=== PATIENT | male | born 1960 | race Caucasian/White ===

== ENCOUNTER 2023-10-13 08:13 | Outpatient (OUT) | payer MEDICARE, MEDICAID, SELFPAY ==
[2023-10-13 08:34] LABS: Basophils Absolute Auto 0.1 10^3/uL (0.0-0.1); Basophils Percent Auto 0.5 % (0.2-2.0); Eosinophils Absolute Auto 0.2 10^3/uL (0.0-0.7); Eosinophils Percent Auto 1.9 % (0.9-7.0); Hematocrit 48.5 % (42.0-54.0); Hemoglobin 15.8 g/dL (14.0-18.0); Immature Granulocytes Abs Auto 0.04 10^3/uL (0.00-0.03); Immature Granulocytes Pct Auto 0.4 % (0.0-0.5); Lymphocytes Absolute Auto 2.5 10^3/uL (1.2-3.8); Lymphocytes Percent Auto 24.6 % (20.5-60.0); Mean Corpuscular HGB Conc 32.6 g/dL (29.9-35.2); Mean Corpuscular Hemoglobin 31.2 pg (25.9-34.0); Mean Corpuscular Volume 95.7 fL (80.0-94.0); Mean Platelet Volume 9.2 fL (9.5-13.5); Monocytes Absolute Auto 0.7 10^3/uL (0.3-0.8); Monocytes Percent Auto 6.6 % (1.7-12.0); Neutrophils Absolute Auto 6.8 10^3/uL (1.4-6.5); Platelet Count 340 10^3/uL (150-450); Red Blood Count 5.07 10^6/uL (4.70-6.10); Red Cell Distribution Width 14.9 % (11.0-15.0); White Blood Count 10.3 10^3/uL (4.0-11.0)
[2023-10-13 08:57] LABS: Alanine Aminotransferase 26 U/L (16-63); Albumin Globulin Ratio 0.9; Albumin Level 3.7 g/dL (3.4-5.0); Alkaline Phosphatase 81 U/L (46-116); Aspartate Amino Transferase 12 U/L (15-37); BUN Creatinine Ratio 11.5; Bilirubin Total 0.8 mg/dL (0.2-1.0); Calcium 9.1 mg/dL (8.5-10.1); Carbon Dioxide 31.4 mmol/L (21.0-32.0); Chloride 102 mmol/L (98-107); Chol HDL Ratio 5.8; Cholesterol 272 mg/dL (<=200); Estimated GFR (African America >60 (>=60); Estimated GFR (Non-African Ame >60 (>=60); Glucose 99 mg/dL (74-106); HDL Cholesterol 47 mg/dL (40-60); Potassium 4.4 mmol/L (3.5-5.1); Sodium 141 mmol/L (136-145); Total Protein 7.7 g/dL (6.4-8.2); Triglycerides 91 mg/dL (<=150); VLDL CHOLESTEROL 18.2 mg/dL
[2023-10-13 09:30] LABS: Bilirubin Urine NEGATIVE (NEGATIVE); Blood Urine NEGATIVE (NEGATIVE); Clarity Urine CLEAR (CLEAR); Color Urine YELLOW (YELLOW); Glucose Urine UA NEGATIVE (NEGATIVE); Ketones Urine NEGATIVE (NEGATIVE); Leukocyte Esterase Urine NEGATIVE (NEGATIVE); Nitrite Urine NEGATIVE (NEGATIVE); Protein Urine NEGATIVE (NEG/TRACE); Specific Gravity Urine >=1.030 (1.005-1.025); Urobilinogen Urine 0.2 EU/dL (0.2-1.0); pH Urine 5.5 (5.0-9.0)
[2023-10-13 09:33] LABS: Urine Microscopic Indicated NO
[2023-10-13 09:35] LABS: Prostate Specific Antigen Dx 12.58 ng/mL (<=4.00)
[2023-10-14 08:11] LABS: PSA, Free 0.99 ng/mL; Prostate Specific Ag 11.2 ng/mL (0.0-4.0)
== END 2023-10-13 08:14 | disposition home or self-care (01) ==
LOC: LAB 08:17
PROVIDERS: PCP Nurse Practitioner; Visit Provider Nurse Practitioner
DX: E78.2 Mixed hyperlipidemia (principal); Z72.0 Tobacco use; Z12.5 Encounter for screening for malignant neoplasm of prostate; R97.20 Elevated prostate specific antigen [PSA]
CPT/HCPCS: 36415; 80053; 80061; 81003; 84153; 84154; 85025

== ENCOUNTER 2023-12-08 08:56 | Outpatient (OUT) | payer MEDICARE, MEDICAID, SELFPAY ==
[2023-12-08 09:11] LABS: Hemoglobin 14.4 g/dL (14.0-18.0)
--- OUTSIDE RECORDS SUMMARY | 2023-12-08 09:19 | XMS_ITS | CCD ---
Author Organization [facility] Care Team Providers Care Hospice Nurse Practitioner Name Role Phone JUSTIN CEDENO Attending Unavailable PAO, JUSTIN Admitting Unavailable DR RENARD PORTILLO Consulting Unavailable REQUEST, NONE LISTED Primary Care Unavaila ble GRECHNY, RIVER JIM Consulting Unavailable EULA, NORMAN Consulting Unavailable REQUEST, NONE LISTED Primary Care Unavaila ble EULA, NORMAN Admitting Unavailable EULA, NORMAN Attending Unavailable EULA, NORMAN Consulting Unavailable EULA, NORMAN Primary Care Unavailable EULA, NORMAN Admitting Unavailable EULA, NORMAN Attending Unavailable lForentin Valiente Unavailable THEODORA RYAN Attending Unavailable THEODORA RYAN Attending Unavailable BRIANA FUENTES Attending Unavailable THEODORA RYAN Attending Unavailable Allergies Allergy Classification Reported Allergen(s) Allergy Type Date of Onset Reaction(s) Facility (1 source) Codeine Drug Allergy 01-23-2022 [facility] Repository (2 sources) Codeine Drug Allergy [facility] Limited Other Medications Current Medications Medication Drug Class(es) Dates Sig (Normalized) Sig (Original) Aspirin (2 sources) Platelet Aggregation Inhibitor, Nonsteroidal Anti-inflammatory Drug gabapentin 300 mg oral capsule (2 sources) Anti-epileptic Agent take 1 capsule by mouth every eight hours rosuvastatin calcium 20 mg oral tablet (2 sources) HMG-CoA Reductase Inhibitor take 1 tablet by mouth every twenty-four hours Spiriva Respimat 2.5 mcg/actuation (1 source) triamcinolone acetonide 1 mg/ml topical cream (2 sources) Corticosteroid Start: 06-19-2021 Problems Active Problems Problem Classification Problem Date Documented Da te Episodic/Chronic Allergic reactions (3 sources) Atopic dermatitis; Translations: [Atopic dermatitis, unspecified] Onset: 06-19-2021 Resolved: 06-19-2021 Chronic Chronic obstructive pulmonary disease and bronchiectasis (3 sources) Chronic obstructive pulmonary disease with (acute) exacerbation; Translations: [Chronic obstructive lung disease] Onset: 06-20-2021 Resolved: 06-20-2021 Chronic Disorders of lipid metabolism (3 sources) Mixed hyperlipidemia; Translations: [Mixed hyperlipidemia] Onset: 06-19-2021 Resolved: 06-19-2021 Chronic Other connective tissue disease (4 sources) Fibromyalgia; Translations: [FIBROMYALGIA] Onset: 12-18-2021 Episodic Other gastrointestinal disorders (4 sources) Constipation, unspecified; Translations: [CONSTIPATION UNSPECIFIED] Onset: 01-23-2022 Episodic Other lower respiratory disease (1 source) Shortness of breath; Translations: [SHORTNESS OF BREATH] Onset: 01-24-2022 Episodic Substance-related disorders (3 sources) Nicotine dependence, cigarettes, uncomplicated; Translations: [Smoker] Onset: 01-24-2022 Chronic Viral infection (1 source) COVID-19; Translations: [COVID-19] Onset: 01-24-2022 Past or Other Problems Problem Classification Problem Date Documented Da te Episodic/Chronic Other screening for suspected conditions (not mental disorders or infectious disease) (1 source) Elevated prostate specific antigen [PSA] Onset: 06-19-2021 Resolved: 06-19-2021 Episodic Results Test Name Value Interpretation Reference Range Facility BNPon 01-23-2022 Natriuretic peptide B (Bld) [Mass/Vol] 115.0 pg/mL Normal <=900.0 [facility] Comment on above: Performed By: #### C MP, TSH, HSTROPN, BNP, LIPA #### [facility] [address] [place] [address] Dr. Ling Cifuentes CBC AUTO DIFFon 01-23-2022 BASO # 0.0 103/ul Normal 0.0-0.1 [facility] Comment on above: Performed By: #### I NFLUAB #### [facility] [address] [place] [address] Dr. Ling Cifuentes Basophils/100 WBC (Bld) 0.2 % Normal 0.2-2.0 [facility] Comment on above: Performed By: #### I NFLUAB #### [facility] [address] [place] [address] Dr. Ling Cifuentes EO # 0.0 103/ul Normal 0.0-0.7 [facility] Comment on above: Performed By: #### I NFLUAB #### [facility] [address] [place] [address] Dr. Ling Cifuentes Eosinophils/100 WBC (Bld) 0.6 % Critically low 0.9-7.0 [facility] Comment on above: Performed By: #### I NFLUAB #### [facility] [address] [place] [address] Dr. Ling Cifuentes Erythrocyte distribution width (RBC) [Ratio] 14.1 % Normal 11.0-15.0 [facility] Comment on above: Performed By: #### I NFLUAB #### [facility] [address] [place] [address] Dr. Ling Cifuentes Hematocrit (Bld) [Volume fraction] 39.8 % Critically low 42.0-54.0 [facility] Comment on above: Performed By: #### I NFLUAB #### [facility] [address] [place] [address] Dr. Ling Cifuentes Hemoglobin (Bld) [Mass/Vol] 13.4 g/dL Critically low 14.0-18.0 [facility] Comment on above: Performed By: #### I NFLUAB #### [facility] [address] [place] [address] Dr. Ling Cifuentes IG # 0.01 10e3/ul Normal 0.00-0.03 [facility] Comment on above: Performed By: #### I NFLUAB #### [facility] [address] [place] [address] Dr. Ling Cifuentes IG % 0.2 % Normal 0.0-0.5 [facility] Comment on above: Performed By: #### I NFLUAB #### [facility] [address] [place] [address] Dr. Ling Cifuentes LYMPH # 1.3 103/ul Normal 1.2-3.8 [facility] Comment on above: Performed By: #### I NFLUAB #### [facility] [address] [place] [address] Dr. Ling Cifuentes Lymphocytes/100 WBC (Bld) 27.2 % Normal 20.5-60.0 [facility] Comment on above: Performed By: #### I NFLUAB #### [facility] [address] [place] [address] Dr. Ling Cifuentes MANUAL DIFF REQ NO [facility] Comment on above: Performed By: #### I NFLUAB #### [facility] [address] [place] [address] Dr. Ling Cifuentes MCH (RBC) [Entitic mass] 30.7 pg Normal 25.9-34.0 [facility] Comment on above: Performed By: #### I NFLUAB #### [facility] [address] [place] [address] Dr. Ling Cifuentes MCHC (RBC) [Mass/Vol] 33.7 g/dL Normal 29.9-35.2 [facility] Comment on above: Performed By: #### I NFLUAB #### [facility] [address] [place] [address] Dr. Ling Cifuentes MCV (RBC) [Entitic vol] 91.1 fL Normal 80.0-94.0 [facility] Comment on above: Performed By: #### I NFLUAB #### [facility] [address] [place] [address] Dr. Ling Cifuentes MONO # 0.5 103/ul Normal 0.3-0.8 [facility] Comment on above: Performed By: #### I NFLUAB #### [facility] [address] [place] [address] Dr. Ling Cifuentes Monocytes/100 WBC (Bld) 10.7 % Normal 1.7-12.0 [facility] Comment on above: Performed By: #### I NFLUAB #### [facility] [address] [place] [address] Dr. Ling Cifuentes NEUT # 2.9 103/ul Normal 1.4-6.5 [facility] Comment on above: Performed By: #### I NFLUAB #### [facility] [address] [address] [address] Ling Cifuentes Neutrophils/100 WBC (Bld) 61.1 % Normal 43.0-75.0 [facility] Comment on above: Performed By: #### I NFLUAB #### [facility] [address] [address] [address] Ling Cifuentes Platelet mean volume (Bld) [Entitic vol] 9.7 fL Normal 9.5-13.5 [facility] Comment on above: Performed By: #### I NFLUAB #### [facility] [address] [address] [address] Ling Cifuentes PLT 157 103/ul Normal 150-450 [facility] Comment on above: Performed By: #### I NFLUAB #### [facility] [address] [address] [address] Ling Cifuentes RBC 4.37 106/ul Critically low 4.70-6.10 [facility] Comment on above: Performed By: #### I NFLUAB #### [facility] [address] [address] [address] Ling Cifuentes WBC 4.8 103/ul Normal 4.0-11.0 [facility] Comment on above: Performed By: #### I NFLUAB #### [facility] [address] [address] [address] Ling Cifuentes Covid-19 PCR ([facility])on 01-03 SARS-CoV-2 (COVID-19) RNA JAYME+probe Ql (Unsp spec) Detected Critically abnormal NOT DETECTED [facility] Comment on above: Result Comment: This test is not yet approved or cleared by the [place] FDA. When there are no FDA-approved or cleared tests available, and other criteria are met, FDA can make tests available under an emergency access mechanism called an Emergency Use Authorization (EUA). The EUA for this test is supported by the Ice Grinder of Health and Human Service's declaration that circumstances exist to justify the emergency use of in vitro diagnostics for the detection and/or diagnosis of the virus that causes COVID-19. This EUA will remain in effect for the duration of the COVID-19 declaration justifying emergency of IVDs, unless it is terminated or revoked by the FDA (after which the test may no longer be used). Performed By: #### C VDTB #### [facility] [address] [place] [address] Dr. Ling Cifuentes ER URINE PROFILEon 2 Bilirubin Ql (U) Negative Normal NEGATIVE [facility] Comment on above: Performed By: #### E RUR #### [facility] [address] [place] [address] Dr. Ling Cifuentes Clarity (U) CLEAR Normal CLEAR [facility] Comment on above: Performed By: #### E RUR #### [facility] [address] [place] [address] Dr. Ling Cifuentes Color (U) YELLOW Normal YELLOW [facility] Comment on above: Performed By: #### E RUR #### [facility] [address] [place] [address] Dr. Ling MOSER A micrscopic examination will be performed if indicated. Normal [facility] Comment on above: Performed By: #### E RUR #### [facility] [address] [place] [address] Dr. Ling Cifuentes Glucose Ql (U) Negative Normal NEGATIVE [facility] Comment on above: Performed By: #### E RUR #### [facility] [address] [place] [address] Dr. Ling Cifuetnes Hemoglobin Ql (U) Negative Normal NEGATIVE [facility] Comment on above: Performed By: #### E RUR #### [facility] [address] [place] [address] Dr. Ling Cifuentes Ketones Ql (U) TRACE Abnormal NEGATIVE [facility] Comment on above: Performed By: #### E RUR #### [facility] [address] [place] [address] Dr. Ling Cifuentes LEUKOCYTES Negative Normal NEGATIVE [facility] Comment on above: Performed By: #### E RUR #### [facility] [address] [place] [address] Dr. Ling Cifuentes Nitrite Ql (U) Negative Normal NEGATIVE [facility] Comment on above: Performed By: #### E RUR #### [facility] [address] [place] [address] Dr. Ling Cifuentes pH (U) 5.5 [pH] Normal 5-9 [facility] Comment on above: Performed By: #### E RUR #### [facility] [address] [place] [address] Dr. Ling Cifuentes SPEC GRAVITY 1.025 Normal 1.005-<=1.025 [facility] Comment on above: Performed By: #### E RUR #### [facility] [address] [place] [address] Dr. Ling Cifuentes UA PROTEIN Negative Normal NEGATIVE/ TRACE [facility] Comment on above: Performed By: #### E RUR #### [facility] [address] [place] [address] Dr. Ling Cifuentes UR MICRO IND NOT INDICATED [facility] Comment on above: Performed By: #### E RUR #### [facility] [address] [place] [address] Dr. Ling Cifuentes Urobilinogen Qn (U) 0.2 {Kranthi'U}/dL Normal 0.2 - 1. 0 [facility] Comment on above: Performed By: #### E RUR #### [facility] [address] [place] [address] Dr. Ling Cifuentes INFLUENZA A AND B AGon 01-23 [facility] SEE BELOW Normal [facility] Comment on above: Result Comment: Nega tive for Flu A protein angiten. Infection due to Flu A cannot be ruled out. Flu A angiten in the sample may be below the detection limit of the test. Performed By: #### I NFLUAB #### [facility] [address] [place] [address] Dr. Ling Cifuentes INFLUBNEGH SEE BELOW Normal [facility] Comment on above: Result Comment: Nega tive for Flu B protein antigen. Infection due to Flu B cannot be ruled out. Flu B antigen in the sample may be below the detection limit of the test. Performed By: #### I NFLUAB #### [facility] [address] [place] [address] Dr. Ling Cifuentes INFLUENZA A AG Negative Normal NEGATIVE SEE COMMENT [facility] Comment on above: Performed By: #### I NFLUAB #### [facility] [address] [address] [address] Ling Cfiuentes INFLUENZA B AG Negative Normal NEGATIVE SEE COMMENT [facility] Comment on above: Performed By: #### I NFLUAB #### [facility] [address] [place] [address] Dr. Ling Cifuentes INTERNAL CONTROLS Within Normal Limits Normal Within Normal Limits [facility] Comment on above: Performed By: #### I NFLUAB #### [facility] [address] [place] [address] Dr. Ling Cifuentes LACTATE/LACTIC ACIDon 2021 Lactate [Moles/Vol] 0.5 mmol/L Normal 0.4-1.9 [facility] Comment on above: Performed By: #### I NFLUAB #### [facility] [address] [place] [address] Dr. Ling Cifuentes LIPASEon 01-23-2022 Lipase [Catalytic activity/Vol] 91.0 U/L Normal 73.0-393.0 [facility] Comment on above: Performed By: #### C MP, TSH, HSTROPN, BNP, LIPA #### [facility] [address] [place] [address] Dr. Ling Cifuentes PROF 14(COMP METB)on 022 Albumin [Mass/Vol] 3.4 g/dL Normal 3.4-5.0 [facility] Comment on above: Performed By: #### C MP, TSH, HSTROPN, BNP, LIPA #### [facility] [address] [place] [address] Dr. Ling Cifuentes Albumin/Globulin [Mass ratio] 1.0 {ratio} Normal [facility] Comment on above: Performed By: #### C MP, TSH, HSTROPN, BNP, LIPA #### [facility] [address] [place] [address] Dr. Ling Cifuentes ALP [Catalytic activity/Vol] 58 U/L Normal 46-116 [facility] Comment on above: Performed By: #### C MP, TSH, HSTROPN, BNP, LIPA #### [facility] [address] [address] [address] Ling Cifuentes ALT [Catalytic activity/Vol] 22 U/L Normal 16-63 [facility] Comment on above: Performed By: #### C MP, TSH, HSTROPN, BNP, LIPA #### [facility] [address] [place] [address] Dr. Ling Cifuentes Anion gap [Moles/Vol] 12.8 mmol/L Normal [facility] Comment on above: Performed By: #### C MP, TSH, HSTROPN, BNP, LIPA #### [facility] [address] [place] [address] Dr. Ling Cifuentes AST [Catalytic activity/Vol] 18 U/L Normal 15-37 [facility] Comment on above: Performed By: #### C MP, TSH, HSTROPN, BNP, LIPA #### [facility] [address] [place] [address] Dr. Ling Cifuentes Bilirubin [Mass/Vol] 0.6 mg/dL Normal 0.2-1.0 [facility] Comment on above: Performed By: #### C MP, TSH, HSTROPN, BNP, LIPA #### [facility] [address] [place] [address] Dr. Ling Cifuentes Calcium [Mass/Vol] 8.4 mg/dL Critically low 8.5-10.1 [facility] Comment on above: Performed By: #### C MP, TSH, HSTROPN, BNP, LIPA #### [facility] [address] [place] [address] Dr. Ling Cifuentes Chloride [Moles/Vol] 100 mmol/L Normal 98-107 [facility] Comment on above: Performed By: #### C MP, TSH, HSTROPN, BNP, LIPA #### [facility] [address] [address] [address] Ling Cifuentes CO2 [Moles/Vol] 25.8 mmol/L Normal 21.0-32.0 [facility] Comment on above: Performed By: #### C MP, TSH, HSTROPN, BNP, LIPA #### [facility] [address] [place] [address] Dr. Ling Cifuentes Creatinine [Mass/Vol] 0.84 mg/dL Normal 0.70-1.30 [facility] Comment on above: Performed By: #### C MP, TSH, HSTROPN, BNP, LIPA #### [facility] [address] [place] [address] Dr. Ling Cifuentes EGFR-AF SRI LANKAN >60 Normal >=60 [facility] Comment on above: Performed By: #### C MP, TSH, HSTROPN, BNP, LIPA #### [facility] [address] [place] [address] Dr. Ling Cifuentes EGFR-NON AF SRI LANKAN >60 Normal >=60 [facility] Comment on above: Performed By: #### C MP, TSH, HSTROPN, BNP, LIPA #### [facility] [address] [place] [address] Dr. Ling Cifuentes Globulin (S) [Mass/Vol] 3.3 g/dL Normal [facility] Comment on above: Performed By: #### C MP, TSH, HSTROPN, BNP, LIPA #### [facility] [address] [place] [address] Dr. Ling Cifuentes Glucose [Mass/Vol] 100 mg/dL Normal 74-106 [facility] Comment on above: Performed By: #### C MP, TSH, HSTROPN, BNP, LIPA #### [facility] [address] [place] [address] Dr. Ling Cifuentes Potassium [Moles/Vol] 3.6 mmol/L Normal 3.5-5.1 [facility] Comment on above: Performed By: #### C MP, TSH, HSTROPN, BNP, LIPA #### [facility] [address] [place] [address] Dr. Ling Cifuentes Protein [Mass/Vol] 6.7 g/dL Normal 6.4-8.2 [facility] Comment on above: Performed By: #### C MP, TSH, HSTROPN, BNP, LIPA #### [facility] [address] [address] [address] Ling Cifuentes Sodium [Moles/Vol] 135 mmol/L Critically low 136-145 [facility] Comment on above: Performed By: #### C MP, TSH, HSTROPN, BNP, LIPA #### [facility] [address] [place] [address] Dr. Ling Cifuentes Urea nitrogen [Mass/Vol] 14.0 mg/dL Normal 7.0-18.0 [facility] Comment on above: Performed By: #### C MP, TSH, HSTROPN, BNP, LIPA #### [facility] [address] [place] [address] Dr. Ling Cifuentes Urea nitrogen/Creatinine [Mass ratio] 16.7 mg/mg Normal [facility] Comment on above: Performed By: #### C MP, TSH, HSTROPN, BNP, LIPA #### [facility] [address] [place] [address] Dr. Ling Cifuentes TROPONIN, HIGH SENSITIVITYon 01-23-2022 HSTROP 11.6 pg/mL Normal 4.0-76.1 [facility] Comment on above: Result Comment: CUT- OFF POINTS HAVE BEEN ESTABLISHED BASED ON THE FOURTH UNIVERSAL DEFINITIONS OF MYOCARDIAL INFARCTION. THE UPPER REFERENCE LIMIT (URL) OF TROPONIN, DEFINED THE 99TH PERCENTILE OF cTnI DISTRIBUTION IN A REFERENCE POPULATION, HAS BEEN CONFIRMED THE DECISION THRESHOLD FOR [place] DIAGNOSIS. Performed By: #### C MP, TSH, HSTROPN, BNP, LIPA #### [facility] [address] [place] [address] Dr. Ling Cifuentes TSHon 01-23-2022 TSH 0.870 uIU/mL Normal 0.358-3.740 [facility] Comment on above: Performed By: #### C MP, TSH, HSTROPN, BNP, LIPA #### [facility] [address] [address] [address] Ling Cifuentes XR ABD FLAT UP_PA Radha 01-23 XR ABD FLAT UP_PA CH EXAMINATION: XR ABD FLAT UP_PA CH HISTORY: CONSTIPATION, UNSPECIFIED , shortness breath COMPARISON: No relevant comparison available. FINDINGS: LUNGS: Expanded lungs and coarsening of interstitial markings compatible with COPD. No acute infiltrates. MEDIASTINUM: No abnormal widening. No abnormal dilation or suspicious fluid levels. BOWEL GAS PATTERN: Non-obstructed. FREE AIR: None. CALCIFICATIONS: None significant. BONES: No fracture or visible bone lesion. OTHER: Negative. IMPRESSION: 1. No acute cardiopulmonary process. 2. Hyperexpanded lungs suggestive COPD. 3. No bowel obstruction. No acute or suspicious abdominal findings. Electronically authenticated by: RENARD PORTILLO Date: 2022-01-23 17:11 Normal [facility] ANTI NEUTROPHIL CYTOPLASMIC AB (ANCA) PRon 12-20-2021 Antimyeloperoxidase (MPO) Abs <9.0 Normal 0.0-9.0 [facility] Comment on above: Result Comment: Perf ormed at: BN Performed By: #### I NFLUAB #### [facility] [address] [place] [address] Dr. Ling Cifuentes Antiproteinase 3 (LA-3) Abs <3.5 Normal 0.0-3.5 [facility] Comment on above: Result Comment: Perf ormed at: BN Performed By: #### I NFLUAB #### [facility] [address] [place] [address] Dr. Ling Cifuentes Atypical pANCA <1:20 Normal Neg:<1:20 [facility] Comment on above: Result Comment: The atypical pANCA pattern has been observed in a significant percentage of patients with ulcerative colitis, primary sclerosing cholangitis and autoimmune hepatitis. Performed at: CB Performed By: #### I NFLUAB #### [facility] [address] [place] [address] Dr. Ling Cifuentes Cytoplasmic (C-ANCA) <1:20 Normal Neg:<1:20 [facility] Comment on above: Result Comment: Perf ormed at: CB Performed By: #### I NFLUAB #### [facility] [address] [address] [address] Ling Cifuentes Perinuclear (P-ANCA) <1:20 Normal Neg:<1:20 [facility] Comment on above: Result Comment: The presence of positive fluorescence exhibiting P-ANCA or C-ANCA patterns alone is not specific for the diagnosis of Erasmo's Granulomatosis (WG) or microscopic polyangiitis. Decisions about treatment should not be based solely on ANCA IFA results. The International ANCA Group Consensus recommends follow up testing of positive sera with both LA-3 and MPO-ANCA enzyme immunoassays. As many as 5% serum samples are positive only by EIA. Ref. AM J Clin Pathol 1999;111:507-513. Performed at: CB Performed By: #### I NFLUAB #### [facility] [address] [place] [address] Dr. Ling Cifuentes PASCUAL EIA W/REFLEX 5 BIOMARKER Son 12-11-2021 PASCUAL Direct Negative Normal Negative [facility] Comment on above: Performed By: #### I NFLUAB #### [facility] [address] [place] [address] Dr. Ling Cifuentes RHEUMATOID FACTORon 12-12-19 22 RA Latex Turbid. <10.0 Normal <14.0 [facility] Comment on above: Performed By: #### R F #### [facility] [address] [place] [address] Dr. Ling Cifuentes VITAMIN B12on 12-11-2021 Cobalamin (Vitamin B12) [Mass/Vol] 378 pg/mL Normal 232-1245 [facility] Comment on above: Performed By: #### I NFLUAB #### [facility] [address] [place] [address] Dr. Ling Cifuentes CBC AUTO DIFFon 12-10-2021 BASO # 0.0 103/ul Normal 0.0-0.1 [facility] Comment on above: Performed By: #### C BC #### [facility] [address] [place] [address] Dr. Ling Cifuentes Basophils/100 WBC (Bld) 0.4 % Normal 0.2-2.0 [facility] Comment on above: Performed By: #### C BC #### [facility] [address] [place] [address] Dr. Ling Cifuentes EO # 0.1 103/ul Normal 0.0-0.7 [facility] Comment on above: Performed By: #### C BC #### [facility] [address] [place] [address] Dr. Ling Cifuentes Eosinophils/100 WBC (Bld) 0.8 % Critically low 0.9-7.0 [facility] Comment on above: Performed By: #### C BC #### [facility] [address] [place] [address] Dr. Ling Cifuentes Erythrocyte distribution width (RBC) [Ratio] 12.9 % Normal 11.0-15.0 [facility] Comment on above: Performed By: #### C BC #### [facility] [address] [place] [address] Dr. Ling Cifuentes Hematocrit (Bld) [Volume fraction] 46.2 % Normal 42.0-54.0 [facility] Comment on above: Performed By: #### C BC #### [facility] [address] [place] [address] Dr. Ling Cifuentes Hemoglobin (Bld) [Mass/Vol] 15.3 g/dL Normal 14.0-18.0 [facility] Comment on above: Performed By: #### C BC #### [facility] [address] [place] [address] Dr. Ling Cifuentes IG # 0.06 10e3/ul Critically high 0.00-0.03 [facility] Comment on above: Performed By: #### C BC #### [facility] [address] [place] [address] Dr. Ling Cifuentes IG % 0.6 % Critically high 0.0-0.5 [facility] Comment on above: Performed By: #### C BC #### [facility] [address] [place] [address] Dr. Ling Cifuentes LYMPH # 2.3 103/ul Normal 1.2-3.8 [facility] Comment on above: Performed By: #### C BC #### [facility] [address] [place] [address] Dr. Ling Cifuentes Lymphocytes/100 WBC (Bld) 21.3 % Normal 20.5-60.0 [facility] Comment on above: Performed By: #### C BC #### [facility] [address] [place] [address] Dr. Ling Cifuentes MANUAL DIFF REQ NO Normal [facility] Comment on above: Performed By: #### C BC #### [facility] [address] [place] [address] Dr. Ling Cifuentes MCH (RBC) [Entitic mass] 30.8 pg Normal 25.9-34.0 [facility] Comment on above: Performed By: #### C BC #### [facility] [address] [place] [address] Dr. Ling Cifuentes MCHC (RBC) [Mass/Vol] 33.1 g/dL Normal 29.9-35.2 [facility] Comment on above: Performed By: #### C BC #### [facility] [address] [place] [address] Dr. Ling Cifuentes MCV (RBC) [Entitic vol] 93.0 fL Normal 80.0-94.0 [facility] Comment on above: Performed By: #### C BC #### [facility] [address] [place] [address] Dr. Ling Cifuentes MONO # 0.8 103/ul Normal 0.3-0.8 [facility] Comment on above: Performed By: #### C BC #### [facility] [address] [place] [address] Dr. Ling Cifuentes Monocytes/100 WBC (Bld) 7.2 % Normal 1.7-12.0 [facility] Comment on above: Performed By: #### C BC #### [facility] [address] [place] [address] Dr. Ling Cifuentes NEUT # 7.4 103/ul Critically high 1.4-6.5 [facility] Comment on above: Performed By: #### C BC #### [facility] [address] [address] [address] Ling Cifuentes Neutrophils/100 WBC (Bld) 69.7 % Normal 43.0-75.0 [facility] Comment on above: Performed By: #### C BC #### [facility] [address] [address] [address] Ling Cifuentes Platelet mean volume (Bld) [Entitic vol] 8.6 fL Critically low 9.5-13.5 [facility] Comment on above: Performed By: #### C BC #### [facility] [address] [address] [address] Ling Cifuentes PLT 373 103/ul Normal 150-450 [facility] Comment on above: Performed By: #### C BC #### [facility] [address] [address] [address] Ling Cifuentes RBC 4.97 106/ul Normal 4.70-6.10 [facility] Comment on above: Performed By: #### C BC #### [facility] [address] [address] [address] Ling Cifuentes WBC 10.7 103/ul Normal 4.0-11.0 [facility] Comment on above: Performed By: #### C BC #### [facility] [address] [address] [address] Ling Cifuentes CRPon 12-10-2021 CRP 5.4 mg/dL Critically high <=1.0 [facility] Comment on above: Performed By: #### I NFLUAB #### [facility] [address] [address] [address] Ling Cifuentes PROF 14(COMP METB)on 022 Albumin [Mass/Vol] 3.6 g/dL Normal 3.4-5.0 [facility] Comment on above: Performed By: #### I NFLUAB #### [facility] [address] [address] [address] Ling Cifuentes Albumin/Globulin [Mass ratio] 0.9 {ratio} Normal [facility] Comment on above: Performed By: #### I NFLUAB #### [facility] [address] [address] [address] Ling Cifuentes ALP [Catalytic activity/Vol] 69 U/L Normal 46-116 [facility] Comment on above: Performed By: #### I NFLUAB #### [facility] [address] [address] [address] Ling Cifuentes ALT [Catalytic activity/Vol] 13 U/L Critically low 16-63 [facility] Comment on above: Performed By: #### I NFLUAB #### [facility] [address] [address] [address] Ling Cifuentes Anion gap [Moles/Vol] 12.2 mmol/L Normal [facility] Comment on above: Performed By: #### I NFLUAB #### [facility] [address] [address] [address] Ling Cifuentes AST [Catalytic activity/Vol] 11 U/L Critically low 15-37 [facility] Comment on above: Performed By: #### I NFLUAB #### [facility] [address] [address] [address] Ling Cifuentes Bilirubin [Mass/Vol] 0.8 mg/dL Normal 0.2-1.0 [facility] Comment on above: Performed By: #### I NFLUAB #### [facility] [address] [address] [address] Ling Cifuentes Calcium [Mass/Vol] 8.8 mg/dL Normal 8.5-10.1 [facility] Comment on above: Performed By: #### I NFLUAB #### [facility] [address] [address] [address] Ling Cifuentes Chloride [Moles/Vol] 99 mmol/L Normal 98-107 [facility] Comment on above: Performed By: #### I NFLUAB #### [facility] [address] [address] [address] Ling Cifuentes CO2 [Moles/Vol] 29.8 mmol/L Normal 21.0-32.0 [facility] Comment on above: Performed By: #### I NFLUAB #### [facility] [address] [address] [address] Ling Cifuentes Creatinine [Mass/Vol] 0.76 mg/dL Normal 0.70-1.30 [facility] Comment on above: Performed By: #### I NFLUAB #### [facility] [address] [address] [address] Ling Cifuentes EGFR-AF SRI LANKAN >60 Normal >=60 [facility] Comment on above: Performed By: #### I NFLUAB #### [facility] [address] [address] [address] Ling Cifuentes EGFR-NON AF SRI LANKAN >60 Normal >=60 [facility] Comment on above: Performed By: #### I NFLUAB #### [facility] [address] [address] [address] Ling Cifuentes Globulin (S) [Mass/Vol] 3.9 g/dL Normal [facility] Comment on above: Performed By: #### I NFLUAB #### [facility] [address] [address] [address] Ling Cifuentes Glucose [Mass/Vol] 101 mg/dL Normal 74-106 [facility] Comment on above: Performed By: #### I NFLUAB #### [facility] [address] [address] [address] Ling Cifuentes Potassium [Moles/Vol] 4.0 mmol/L Normal 3.5-5.1 [facility] Comment on above: Performed By: #### I NFLUAB #### [facility] [address] [address] [address] Ling Cifuentes Protein [Mass/Vol] 7.5 g/dL Normal 6.4-8.2 [facility] Comment on above: Performed By: #### I NFLUAB #### [facility] [address] [address] [address] Ling Cifuentes Sodium [Moles/Vol] 137 mmol/L Normal 136-145 [facility] Comment on above: Performed By: #### I NFLUAB #### [facility] [address] [address] [address] Ling Cifuentes Urea nitrogen [Mass/Vol] 9.0 mg/dL Normal 7.0-18.0 [facility] Comment on above: Performed By: #### I NFLUAB #### [facility] [address] [address] [address] Ling Cifuentes Urea nitrogen/Creatinine [Mass ratio] 11.8 mg/mg Normal [facility] Comment on above: Performed By: #### I NFLUAB #### [facility] [address] [address] [address] Ling Cifuentes SED RATE [facility] 2021 SED RATE 51 mm/hr Critically high <=20 [facility] Comment on above: Performed By: #### I NFLUAB #### [facility] [address] [address] [address] Ling Cifuentes TSHon 12-10-2021 TSH 1.293 uIU/mL Normal 0.358-3.740 [facility] Comment on above: Performed By: #### I NFLUAB #### [facility] [address] [place] [address] Dr. Ling Cifuentes TSH RANGE SEE BELOW Normal [facility] Comment on above: Result Comment: <0.3 4 UIU/ml HYPERTHYROID 0.34-5.60 UIU/ml EUTHYROID >5.60 UIU/ml HYPOTHYROID Performed By: #### I NFLUAB #### [facility] [address] [place] [address] Dr. Ling Cifuentes Reminderson 11-06-2021 Reminders -- From: Theodora Martinez MA To: EU - Clinical; Sent: 07/17/2021 15:51:53 EST Show up: 10/02/2021 15:51:00 EST Subject: MRI In Spring Reminder Message MRI at [facility] Order will need resent for Precert Order faxed to [facility] Spoke to [facility] and MRI has not been approved yet patient is scheduled 10-31-21 @ 7:30am per [facility] CS Looked in clinisync no results yet. Pt canceled MRI of prostate on 10/23/21 stated from CS, and pt didn't want to reschedule [facility] Pre-Certification Formon Pre-Certification Form [id number] E9#1.00CD:127 [facility] Reminderson 07-13-2021 Reminders -- From: Angie Doe MA To: EU - Clinical; Sent: 06/22/2021 14:06:02 EST Show up: 07/02/2021 07:00:00 EST Subject: scheduling MRI prostate Due Date/Time: 07/04/2021 07:00:00 EST Reminder/Recall Order for Prostate MRI has been sent to [facility]. They will precert and call pt to schedule. Please make sure Dr Rizvi sees the results. Thanks!! no results yet Spoke to [facility] CS and was told they called Pt. on Jul 03 and Pt. told them to call him back to schedule sometime this week. Spoke to [facility] CS and was told Pt. has not returned their phone calls to schedule. PT called [facility] CS and told them he did not want to get the MRI he wanted to wait. [facility] Pre-Certification Formon Pre-Certification Form [id number] 80#1.00CD:127 [facility] Lab Reportson 06-25-2021 Lab Reports [id number] 412#1.00CD:127 [facility] Lab Reports [id number] 71#1.00CD:127 [facility] Physician Referralon 021 Physician Referral [id number] 178#1.00CD:127 [facility] Patient Educationon 06-22-20 21 Patient Education Oncology Prostate-Specific Antigen Test Why am I having this test? The prostate-specific antigen (PSA) test is a screening test for prostate cancer. It can identify early signs of prostate cancer, which may allow for more effective treatment. Your health care provider may recommend that you have a PSA test starting at age 40 or that you have one earlier or later, depending on your risk factors for prostate cancer. You may also have a PSA test: ? To monitor treatment of prostate cancer. ? To check whether prostate cancer has returned after treatment. ? If you have signs of other conditions that can affect PSA levels, such as: ? An enlarged prostate that is not caused by cancer (benign prostatic hyperplasia, BPH). This condition is very common in older men. ? A prostate infection. What is being tested? This test measures the amount of PSA in your blood. PSA is a protein that is made in the prostate. The prostate naturally produces more PSA as you age, but very high levels may be a sign of a medical condition. What kind of sample is taken? A blood sample is required for this test. It is usually collected by inserting a needle into a blood vessel or by sticking a finger with a small needle. Blood for this test should be drawn before having an exam of the prostate. How do I prepare for this test? Do not ejaculate starting 24 hours before your test, or as long as told by your health care provider. Tell a health care provider about: ? Any allergies you have. ? All medicines you are taking, including vitamins, herbs, eye drops, creams, and wbey-uxt-rcxrisw medicines. This also includes: ? Medicines to assist with hair growth, such as finasteride. ? Any recent exposure to a medicine called diethylstilbestrol. ? Any blood disorders you have. ? Any recent procedures you have had, especially any procedures involving the prostate or rectum. ? Any medical conditions you have. ? Any recent urinary tract infections (UTIs) you have had. How are the results reported? Your test results will be reported as a value that indicates how much PSA is in your blood. This will be given as nanograms of PSA per milliliter of blood (ng/mL). Your health care provider will compare your results to normal ranges that were established after testing a large group of people (reference ranges). Reference ranges may vary among labs and hospitals. PSA levels vary from person to person and generally increase with age. Because of this variation, there is no single PSA value that is considered normal for everyone. Instead, PSA reference ranges are used to describe whether your PSA levels are considered low or high (elevated). Common reference ranges are: ? Low: 0?2.5 ng/mL. ? Slightly to moderately elevated: 2.6?10.0 ng/mL. ? Moderately elevated: 10.0?19.9 ng/mL. ? Significantly elevated: 20 ng/mL or greater. Sometimes, the test results may report that a condition is present when it is not present (false-positive result). What do the results mean? A test result that is higher than 4 ng/mL may mean that you are at an increased risk for prostate cancer. However, a PSA test by itself is not enough to diagnose prostate cancer. High PSA levels may also be caused by the natural aging process, prostate infection, or BPH. PSA screening cannot tell you if your PSA is high due to cancer or a different cause. A prostate biopsy is the only way to diagnose prostate cancer. A risk of having the PSA test is diagnosing and treating prostate cancer that would never have caused any symptoms or problems (overdiagnosis and overtreatment). Talk with your health care provider about what your results mean. Questions to ask your health care provider Ask your health care provider, or the department that is doing the test: ? When will my results be ready? ? How will I get my results? ? What are my treatment options? ? What other tests do I need? ? What are my next steps? Summary ? The prostate-specific antigen (PSA) test is a screening test for prostate cancer. ? Your health care provider may recommend that you have a PSA test starting at age 40 or that you have one earlier or later, depending on your risk factors for prostate cancer. ? A test result that is higher than 4 ng/mL may mean that you are at an increased risk for prostate cancer. However, elevated levels can be caused by a number of conditions other than prostate cancer. ? Talk with your health care provider about what your results mean. This information is not intended to replace advice given to you by your health care provider. Make sure you discuss any questions you have with your health care provider. Document Released: 08/23/2005 Document Revised: 07/03/2018 Document Reviewed: 04/27/2018 [employer] Patient Education ? 2019 [employer] Normal [facility] PSA Diagnostic (Total Free)o n 06-12-2021 Prostate Spec Ag, Free 0.750 ng/mL Normal [facility] Comment on above: Order Comment: Reaso n for Exam Elevated PSA Performed By: #### P SATF #### [address] PSA Total (Not a Screen) 5.790 ng/mL High 0.000-4.000 [facility] Comment on above: Order Comment: Reaso n for Exam Elevated PSA Performed By: #### P SATF #### [address] PSA,FREE% 12.0 % Normal [facility] Comment on above: Order Comment: Reaso n for Exam Elevated PSA Result Comment: Base d on the work of Jeff et al.DAVID. 27919):1542:47.1998 the percent free PSA may be used to determine the relative risk of prostate cancer in individual men.The percent probability of prostate cancer by patient age for men with non-suspicious FRANKLYN results and total PSa between 4 and 10 ng/ml is as follows: % Free PSA 50 - 64 yrs. 65 - 75 yrs. 0 - 10 56% 55% 10 - 15 24% 35% 15 - 20 17% 23% 20 - 25 10% 20% >25 5% 9% PERFORMED BY: [place] [address] PATHOLOGIST JET MECHANIC LUDIN FITZGERALD M.D. Performed By: #### P SATF #### [address] Complete Pulmonary Functiono n 05-30-2021 Complete Pulmonary Function [facility] [place] [address] [place] [address] Pulmonary Function Signed Patient: Effie Chambers MR#: [id number] 8 : 1960 Acct:[id number] Age/Sex: 61 / M ADM Date: 05/25/21 Loc: RT Room: Type: [facility] Attending Dr: Florentin Valiente DO Ordering Provider: Florentin Valiente D.O. Date of Service: 05/25/21 Accession #: Copies to: MD Florentin Ortez D.O. PFTs were done on this 61-year-old gentleman who is 6 feet 2 inches, weighs 200 pounds, with 49-year smoking history presenting with cough and dyspnea on exertion. Spirometry showed a forced vital capacity of 2.93 L, which is 55% of predicted. FEV1 was 1.07 L, which is 27% of predicted. FEV1/FVC ratio was markedly reduced to 37%. TXZ31-85% was profoundly reduced to 0.42 L/sec, which is 13% of predicted. Following bronchodilator therapy, forced vital capacity improved by 32%, FEV1 improved by 27%. Both are consistent with significant reversibility. Lung volumes done by body plethysmography showed total lung capacity of 5.93 L, which is 75% of predicted. Residual volume was 2.7 L, which is 103% of predicted with mildly increased RV/TLC ratio at 46%. Diffusion capacity was moderately reduced at 18.4, which is 63% of predicted. OVERALL IMPRESSION: This study is consistent with very severe obstructive ventilatory impairment with mild reversibility after bronchodilator therapy associated with mild restrictive impairment in addition to moderate diffusion abnormality. Transcribed By: MITCHEL 05/30/21 1349 Dictated By: Minnie Linares MD 05/30/21 0836 Signed By: 05/31/21 0832 [facility] Lipid Panelon 05-25-2021 Cholesterol [Mass/Vol] 246 mg/dL High 140-200 [facility] Comment on above: Order Comment: Reaso n for Exam Screening for cardiovascular condition Result Comment: Chol less than 200 mg/dl low risk Chol 201-239 mg/dl borderline risk Chol 240 mg/dl and greater high risk Performed By: #### P SAS, LIPID #### [address] Cholesterol in HDL [Mass/Vol] 44 mg/dL Normal 29-71 [facility] Comment on above: Order Comment: Reaso n for Exam Screening for cardiovascular condition Result Comment: HDL CHOL ATP-III CLASSIFICATION Cardiovascular Risk HDL > or equal to 60 mg/dL LOW HDL < 40 mg/dL HIGH Performed By: #### P SAS, LIPID #### [facility] [address] Cholesterol.total/Sarai sterol in HDL [Mass ratio] 5.6 {ratio} Normal <5.0 [facility] Comment on above: Order Comment: Reaso n for Exam Screening for cardiovascular condition Result Comment: PERF ORMED BY: [place] [address] PATHOLOGIST JET MECHANIC LUDIN FITZGERALD M.D. Performed By: #### P SAS, LIPID #### [facility] [address] LDL Cholesterol,Calculated 186 mg/dL High 0-100 [facility] Comment on above: Order Comment: Reaso n for Exam Screening for cardiovascular condition Result Comment: LDL ATP III CLASSIFICATION LDL less than 100 mg/dL Optimal LDL 100-129 mg/dL Near or above optimal LDL 130-159 mg/dL Borderline high LDL 160-189 mg/dL High LDL greater than 189 mg/dL Very high Performed By: #### P SAS, LIPID #### [facility] [address] Triglyceride w/Reflex 81 mg/dL Normal 35-149 [facility] Comment on above: Order Comment: Reaso n for Exam Screening for cardiovascular condition Result Comment: TRIG ATP III CLASSIFICATION TRIG less than 150 mg/dL Normal TRIG 150-199 mg/dL Borderline high TRIG 200-500 mg/dL High TRIG greater than 500 mg/dL Very high Standard traceable to the Center for Disease Conrtrol and Prevention (CDC) test method. Performed By: #### P SAS, LIPID #### [facility] [address] VLDL CHOLESTEROL 16 mg/dL Normal [facility] Comment on above: Order Comment: Reaso n for Exam Screening for cardiovascular condition Performed By: #### P SAS, LIPID #### [facility] [address] [id number] [place] PSA Screen (Yearly Only)on PSA Screen (Yearly Only) 6.170 ng/mL High 0.000-4.000 [facility] Comment on above: Order Comment: Reaso n for Exam Screening for prostate cancer Is patient <50 yrs? Medicare does not pay <50.: Y What is the date of the last PSA Screen?: 013095 Is Medicare the insurance?: Y Did you verify eligibility (Dx Time) check TestViewGp: YES TO ALL Result Comment: PERF ORMED BY: [place] [id number] PATHOLOGIST JET MECHANIC LUDIN FITZGERALD M.D. Performed By: #### P SAS, LIPID #### [place] [id number] [place] Outside Recordson 02-14-2020 Outside Records [id number] 23[facility] [id number] 09#1.00[facility] Outside Records [id number] 37#1.00[facility] Outside Recordson 10-08-2019 Outside Records [id number]#1.00[facility] [id number]#1.00[facility] Coding Queryon 09-30-2019 Coding Query [id number] 66#1.00[facility] Coding Summaryon 09-30-2019 Coding Summary CODING DATE: 09/30/2019 [facility] STATUS: Home PAYOR: Medicare APC DESCRIPTION 5522 Level 2 Imaging without Contrast ADMIT DX: REASON FOR VISIT DX: Z87.81 Personal history of (healed) traumatic fracture FINAL DX: PRINCIPAL: Z87.81 Personal history of (healed) traumatic fracture SECONDARY: M85.89 Other specified disorders of bone density and structure, multiple sites M81.0 Age-related osteoporosis without current pathological fracture PYMT PROC APC STAT DESCRIPTION DOCTOR NAME DATE NOTE: The code number assigned matches the documented diagnosis and / or procedure in the patient's chart. However, the narrative phrase printed from the coding software may appear abbreviated, or result in slightly different terminology. Coded By: Orly Yanez Date Saved: 09/30/2019 04:47 pm [facility] Release of Informationon Release of Information [id number] 55#1.00OTGTIFF [facility] Rad - Bone Density Reporton 09-29-2019 Rad - Bone Density Report [id number] 85#[facility] BD Bone Density DEXA Studyon 09-28-2019 BD Bone Density DEXA Study EXAM: BD Bone Density DEXA Study HISTORY: History of vertebral fracture (Z87.81), Other specified disorders of bone density and structure, multiple sites M85.89 Evaluate for osteoporosis. COMPARISON: None. TECHNIQUE: Bone density study was performed. T-score values for the lumbar spine and both femoral necks were obtained. FINDINGS: Value for the lumbar spine is -3.1, that for the left femoral neck is -2.7. Findings are compatible with osteoporosis with high increased fracture risk. IMPRESSION: Findings compatible with osteoporosis with high increased fracture risk. Final Dictated by: Mitul Cuellar MD Dictated DT/TM: 09/28/19 11:16 Signed (Electronic Signature): Mitul Cuellar MD 09/28/19 4:06 pm Technologist: [facility] Outside Recordson 09-27-2019 Outside Records [id number] 02#1.00[facility] Ambulatory Patient Summaryon 09-20-2019 Ambulatory Patient Summary [facility] Internal Medicine [address] [place] [address], [id number] Visit Summary For EFFIE CHAMBERS We would like to thank you for allowing us to assist you with your healthcare needs. Our entire staff strives to provide an excellent experience for our patients and their families. The following includes information regarding your visit. Age: 59 years Sex: MALE : 1960 Address: [address] [place] [address], [address] Home: Work: -- Mobile: -- Primary Care Provider: JESSICA GUZMÁN DO Race: Declined Ethnicity: Not or Language: [place] Health Plan: 1?MEDICARE, 2?MEDICAID [place] Reason for Visit: 1 month follow up, , rash on face. Prescription Information: If you have been given a prescription for narcotics, seek immediate medical attention if you have any difficulty breathing or any sudden status changes such as confusion and sleepiness. If you or anyone you know is experiencing suicidal thoughts, mental health, alcohol and/or drug addiction problems; contact the Mental Health & Recovery Board [facility] 24/02 Crisis Hotline -Text 4HOPE to 456273. Follow-Up Information Referral Orders BD Bone Density DEXA Study 09/20/19 Routine, See Dx, Allow Modification Per Radiologist, Transport Mode: Walk, History of vertebral fracture, Order for future visit Future Appointments [facility] Phone: -- Fax: -- Appt. Date: 12/23/2019 9:30 AM Scheduled Provider: Sang Baird DO Future Orders BD Bone Density DEXA Study Requested Start Date\Time : 09/20/19 08:48:00 Additional Goals and Instructions: Allergies codeine Vitals and Measurements this Visit (last charted value for your 09/20/2019 visit) Vital Signs This Visit Peripheral Pulse Rate: 77 bpm Respiratory Rate: 18 br/min Systolic Blood Pressure: 130 mmHg Diastolic Blood Pressure: 78 mmHg SpO2: 98 % Measurements This Visit Height: 187.96 cm Height (inches): 74 in Weight: 97 kg Weight (lb): 213.4 lb Body Mass Index: 27.46 kg/m2 BSA Measured: 2 m2 Smoking Status 10 or more cigarettes (1/2 pack or more)/day in last 30 days Procedures No Procedures Documented Problems and Health Issues Light cigarette smoker Low back pain Lumbar radiculopathy Diagnoses This Visit History of vertebral fracture (Z87.81) Lumbar radiculitis (M54.16) Seborrhea (L21.9) Tobacco smoker, less than 10 cigarettes per day (F17.210) Laboratory or Other Results This Visit (last charted value for your 09/20/2019 visit) No Laboratory or Other Results This Visit Medications and Immunizations Administered During This Visit No medication administered during this visit All Known Current Prescriptions and Reported Medications New Prescriptions this Visit ketoconazole 2% topical shampoo (ketoconazole topical) Take 1 rosa Topical 2 times a week for 90 Days, 1 refills authorized Prescriptions No previous prescriptions documented Home Medications No reported medications documented [facility] Patient Handouton 09-20-2019 Patient Handout [facility] Outside Recordson 08-25-2019 Outside Records [id number] [facility] Ambulatory Patient Summaryon 08-19-2019 Ambulatory Patient Summary [facility] Internal Medicine [employer] [facility], [address] Visit Summary For EFFIE CHAMBERS We would like to thank you for allowing us to assist you with your healthcare needs. Our entire staff strives to provide an excellent experience for our patients and their families. The following includes information regarding your visit. Age: 59 years Sex: MALE : 1960 Address: [address] [place] [address], [id number] Home: Work: -- Mobile: -- Primary Care Provider: JESSICA GUZMÁN Race: Declined Ethnicity: Not or Language: [place] Health Plan: 1?MEDICARE, 2?MEDICAID [place] Reason for Visit: new patient- previous pcp Dr Guzmán Prescription Information: If you have been given a prescription for narcotics, seek immediate medical attention if you have any difficulty breathing or any sudden status changes such as confusion and sleepiness. If you or anyone you know is experiencing suicidal thoughts, mental health, alcohol and/or drug addiction problems; contact the [facility] 24/02 Crisis Hotline -Text 4HYTF ct 326222. Follow-Up Information Referral Orders Future Appointments No Future Appointments Scheduled Future Orders No future orders Additional Goals and Instructions: Allergies codeine Vitals and Measurements this Visit (last charted value for your 08/19/2019 visit) Vital Signs This Visit Peripheral Pulse Rate: 88 bpm Respiratory Rate: 18 br/min Systolic Blood Pressure: 106 mmHg Diastolic Blood Pressure: 58 mmHg SpO2: 96 % Measurements This Visit Height: 187.96 cm Height (inches): 74 in Weight: 93.7 kg Weight (lb): 206.14 lb Body Mass Index: 26.52 kg/m2 BSA Measured: 2 m2 Smoking Status 10 or more cigarettes (1/2 pack or more)/day in last 30 days Procedures No Procedures Documented Problems and Health Issues Low back pain Lumbar radiculopathy Diagnoses This Visit Chronic neck pain (M54.2) Eczema of face (L30.9) History of traumatic fracture of vertebra (Z87.81) Low back pain (M54.5) Lumbar radiculitis (M54.16) Laboratory or Other Results This Visit (last charted value for your 08/19/2019 visit) No Laboratory or Other Results This Visit Medications and Immunizations Administered During This Visit No medication administered during this visit All Known Current Prescriptions and Reported Medications New Prescriptions this Visit No new prescriptions for this visit Prescriptions No previous prescriptions documented Home Medications No reported medications documented [facility] Patient Handouton 08-19-2019 Patient Handout [facility] Vital Signs Date Time Vital Sign Value Performing Clinician Facility 06-19-2021 09:00-0500 Body height 183.52 cm Florentin Valiente Other [facility] Other 06-19-2021 09:00-0500 Body mass index (BMI) [Ratio] 28.01 kg/m2 Florentin Valiente Other [facility] Other 06-19-2021 09:00-0500 Body weight 94.35 kg Florentin Valiente Other [facility] Other 06-19-2021 09:00-0500 Diastolic blood pressure 86 mm[Hg] Florentin Valiente Other [facility] Other 06-19-2021 09:00-0500 Respiratory rate 18 /min Florentin Valiente Other [facility] Other 06-19-2021 09:00-0500 SaO2% (BldA) [Mass fraction] 98 % Florentin Valiente Other [facility] Other 06-19-2021 09:00-0500 Systolic blood pressure 144 mm[Hg] Florentin Valiente Other [facility] Other Encounters Encounter Date Encounter Type Care Provider Facility Start: 12-01-2023 End: 12-01-2023 ambulatory THEODORA AICHHOLZ Not Available Start: 10-29-2023 End: 10-29-2023 ambulatory THEODORA AICHHOLZ Not Available Start: 09-25-2023 End: 09-25-2023 ambulatory THEODORA AICHHOLZ Not Available Start: 07-03-2023 End: 07-03-2023 ambulatory BRIANA FUENTES Not Available Start: 01-23-2022 End: 01-23-2022 ambulatory JUSTIN PAO Facility:[facility] Start: 12-18-2021 End: 12-19-2021 ambulatory NORMAN EULA Facility:[facility] Start: 12-10-2021 End: 12-11-2021 ambulatory NORMAN EULA Facility:[facility] Start: 06-20-2021 End: 06-20-2021 ambulatory Florentin Rocco Other [facility] Other Start: 06-20-2021 Telephone encounter Florentin [facility] Start: 06-19-2021 End: 06-19-2021 ambulatory Florentin Rocco Other [facility] Other Start: 06-19-2021 Office outpatient visit 25 minutes Florentin Valiente [facility] Payers Date Payer Category Payer Medicaid [id number] 1961 Unknown [id number] 1960 Unknown [id number] 2.16.84 [id number] 1960 Unknown [id number] 2.16.84 [id number] 1960 Unknown [id number] 2.16.84 [id number] 1960 Unknown [id number] 2.16.84 [id number] 1960 Unknown [id number] 2.16.84 [id number] 1960 Unknown [id number] 2.16.84 [id number] 1960 Unknown [id number] 2.16.840 .[id number] Medicare [id number] 2.1 [id number] Social History Date Type Detail Facility Sex Assigned At [facility] [employer] Other Clinical Note 06-22-2021 Note Date & Type Note Facility 06-22-2021 Note Chief Complaint Referral HPI Staff Referral per Florentin Bashir DO due to elevated PSA. PSA 5.790 & 12.0% done 06/12/21, previous PSA 6.170 done 05/25/21. Dysuria: denies Incomplete bladder emptying: denies Hematuria: denies Frequency: due to how much coffee he drinks a day, every 2-3 hours Urgency: yes Nocturia: yes mild intermittent once a night Stream: denies hesitancy, yes weak stream, denies start/stop stream Leaking: denies Post void dripping: yes Wearing pads/ Depends: denies Urge incontinence: rarely Stress incontinence: denies Incontinence without Sensory Awareness: denies Abdominal pain: lower abdomen around bellybutton started a month ago Flank pain: denies Sexual complaints: denies History of Present Illness Reviewed UA and PSA, external records, referral paperwork There have been no associated fever, chills, flank pain or blood in the urine. Pt. denies any pain/burning with urination at this time. Review of Systems PHQ Score Initial Depression Screen Score: 2 ROS - Provider Constitutional: denies weight loss, denies hot flashes. Eyes: denies eye problems. Gastrointestinal: denies nausea, denies vomiting. Cardiovascular: denies chest pain or angina. Integumentary: no dryness Musculoskeletal: denies musculoskeletal symptoms. ENMT: denies otolaryngeal symptoms. Respiratory: no shortness of breath. Heme/Lymph: denies easy bleeding tendency, denies easy bruising tendency. Psychiatric: no confusion, no anxiety. Genitourinary: See HPI. Physical Exam Vitals & Measurements HR: 76(Peripheral) RR: 18 BP: 142/81 HT: 186 cm HT: 186.0 cm WT: 95.6 kg WT: 95.6 kg BMI: 27.63 General Appearance: alert, no distress, well nourished, well developed male. Head: normocephalic . Eyes: normal orbit and globe. ENMT: normal examination of external ears. Chest: Lungs CTA, respirations non labored. Cardiovascular: regular rate and rhythm. Abdomen: soft, non distended, no tenderness, no mass or organomegaly, no hernia. Genitourinary: Flank Pain: none. Bladder: nonpalpable. Penis: normal shaft, normal glans. Prostate: normal prostate, estimated weight 40 gms (limited by body habitus), nodule palpable at rt. apex. Left lateral apex mild firmness, non tender Lymph Nodes: unremarkable palpation of the cervical area. Skin: warm, dry, no bruising. Psychiatric: cooperative, affect appropriate for age, normal judgement, euthymic mood. 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 Elevated PSA (R97.20: Elevated prostate specific antigen [PSA]) 06/12/21 - 5.790 & 12% Free 05/25/21 - 6.170 09/09/16 - 2.6 Abnormal FRANKLYN today. UA today shows no signs of blood nor infection. Pt. denies any bothersome urinary sxs at this time. Mild nocturia & weak stream. He is to let us know if he wishes to start a medication. No hx of UTIs or retention Discussed implications of elevated PSA with relatively low percent free, translating to 24% chance of finding clinically significant prostate cancer. Discussed NCCN guidelines recommendations for obtaining a multiparametric prostate MRI to increase detection of clinically significant prostate cancer versus upfront TRUS biopsy. -After discussion of risks/benefits patient would like to proceed with MRI prostate. Pt. has metal in his rt. foot, which has previously been covered for MRIs he has done in the past. -Follow up in 1 month or when MRI completed for review Ordered: Body Mass Index (BMI) documented 3008F MRI Pelvis (Soft Tissue) w/ + w/o contrast Office Visit Level 4 New 62744 Urnls Dip Stick Auto w/o Microscopy POC 22510 2. Aspirin long-term use (Z79.82: shelter (current) use of aspirin) Hx of stroke. Cont ASA 81 mg. Strong family hx of CAD, MIs. Ordered: Office Visit Level 4 New 25105 3. Tobacco use (Z72.0: Tobacco use) Counseled on risks of prostate cancer and smoking, he will try patches to quit. He declined further assistance today, as he knows the resources to contact if needed. Ordered: Office Visit Level 4 New 87312 I have reviewed the previous health record information and history for this pt. from external provider, Dr. Bashir. Follow-up With When Contact Information Dmitri MISHRA, Tina Walden, URL, [facility] [address], [place] [address]- [phone] Additional Instructions: Patient Education Prostate-Specific Antigen Test I, Radha Mahan , personally scribed for Dr. Rizvi on 06/22/2021 13:50:54. . Documentation recorded by the scribe, Radha Mahan, accurately reflects the services(s) I performed and decisions made by me. Authenticated by Dr. Rizvi on 06/22/2021 14:10:13. Problem List/Past Medical History Ongoing Acute URI Aspirin long-term use Chronic narcotic dependence Hx of trauma Lumbar back pain with radiculopathy affecting lower extremity Xena (more content not included)... [facility] Comment on above: Result Comment: Elec tronically Signed By: Tina Rizvi MD\.br\Date and Time Signed: 06/22/21 14:10 EST\.br\Electronically Co-Signed By: Radha Mahan MA\.br\Date and Time Co-Signed: 06/22/21 13:53 EST\.br\Electronically Co-Signed By: Radha Mahan MA\.br\Date and Time Co-Signed: 06/22/21 13:55 EST Evaluation note Note Date & Type Note Facility Evaluation note [facility] [email or web address] Other Evaluation note Note Date & Type Note Facility Evaluation note [facility] [email or web address] Other History general Narrative - Reported Note Date & Type Note Facility History general Narrative - Reported [facility] [employer] Other History general Narrative - Reported Note Date & Type Note Facility History general Narrative - Reported [facility] [employer] Other Summary Purpose Family History No Family History Records FoundNo Family History Records FoundNo Family History Records FoundNo Family History Records FoundNo Family History Records Found Advance Directives No Advanced Directives Records FoundNo Advanced Directives Records FoundNo Advanced Directives Records FoundNo Advanced Directives Records FoundNo Advanced Directives Records Found Additional Source Comments (unrecognized sect ion and content) No Status Records FoundNo Status Records FoundNo Status Records FoundNo Status Records FoundNo Status Records Found INFORMATION SOURCE (unrecogn ized section and content) DATE CREATED AUTHOR 08/07/2020 [facility] DATE CREATED AUTHOR AUTHOR'S ORGANIZ ATION 06/12/2021 [facility] DATE CREATED AUTHOR AUTHOR'S ORGANIZ ATION 11/08/2021 [facility] DATE CREATED AUTHOR AUTHOR'S ORGANIZ ATION 01/24/2022 [facility] DATE CREATED AUTHOR AUTHOR'S ORGANIZ ATION 12/02/2023 [facility] FOR RECORDS PERTAINING TO PATIENTS WHO ARE OR HAVE BEEN ENROLLED IN A CHEMICAL DEPENDENCY/SUBSTANCEABUSE PROGRAM, SOME INFORMATION MAY BE OMITTED. This clinical summary was aggregated from multiple sources. Caution should be exercised in using it in the provision of clinical care. This summary normalizes information from multiple sources, and as a consequence, information in this document may materially change the coding, format and clinical context of patient data. In addition, data may be omitted in some cases. CLINICAL DECISIONS SHOULD BE BASED ON THE PRIMARY CLINICAL RECORDS. [employer] provides no warranty or guarantee of the accuracy or completeness of information in this document.
--- NOTE | 2023-12-08 10:04 | RT_ITS ---
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 Findings were considered accurate and reproducible with exception of FVC. Both pre- and post-bronchodilator values utilized for spirometry. Spirometry (based on pre-bronchodilator values): -FEV1/FVC: Reduced @ 32% -FEV1: Severely reduced @ 36% -FVC: Normal @ 83% -[id number]%: Reduced @ 10% -There is a positive bronchodilator response in FEV1. Lung volumes by plethysmography (based on pre-bronchodilator values): -RV: Increased @ 245% -TLC: Increased @ 136% Diffusion capacity: -DLCO: Very severe reduction @ 37% when corrected for Hb 14.4g/dL Flow-volume loop: -Severe obstructive pattern Impressions: -Spirometry shows severe obstruction with a positive bronchodilator response. An elevated RV and TLC suggest air trapping and hyperinflation respectively. There is a very severely reduced diffusion capacity. Overall study compatible with emphysema/COPD. Clinical correlation required. Electronically Signed On 12-09-2023 7:03:31 EDT by Beto Valdez
[2023-12-08] MEDS: ALBUTEROL SULFATE 2.5 MG/3 ML VIAL NEB IH (10:06)
== END 2023-12-08 08:57 | disposition home or self-care (01) ==
LOC: CARD 08:58
PROVIDERS: PCP Nurse Practitioner; Visit Provider Nurse Practitioner
DX: J44.9 Chronic obstructive pulmonary disease, unspecified (principal); Z72.0 Tobacco use
CPT/HCPCS: 36415; 85018; 94060; 94726; 94729

== ENCOUNTER 2024-02-19 07:51 | Outpatient (OUT) | payer MEDICARE, MEDICAID, SELFPAY ==
--- NOTE | 2024-02-19 07:54 | CT_ITS ---
[address] [address] Patient Name: EFFIE CHAMBERS MRN: [facility]:[id number] date: 1960 Sex: M Assigned Patient Location: CT Current Patient Location: CT Accession/Order Number: [id number] Exam Date: 02/19/2024 08:01 Report Date: 02/19/2024 08:36 At the request of: SAMMY CAMACHO Procedure: CT lung screening low-dose EXAMINATION: CT lung screening low-dose HISTORY: Nicotine Dependence F17.219 COMPARISON: No relevant comparison available. TECHNIQUE: Axial, Coronal, and Sagittal images were created without the administration of IV contrast material. Dose reduction techniques were achieved by using automated exposure control and/or adjustment of mA and/or kV according to patient size and/or use of iterative reconstruction technique. FINDINGS: LUNGS: 6 mm nodule within the right middle lobe. 9 x 4 x 3 mm nodule within left lower lobe medial basilar segment. Moderate emphysematous changes. Mild atelectasis versus infiltrates versus residual lung parenchyma within left lung base. PLEURA: No mass, effusion, or pneumothorax. VASCULATURE: No abnormality. KYMBERLY: No mass or pathologic adenopathy. MEDIASTINUM: No mass or pathologic adenopathy. CARDIAC: No enlargement, pericardial thickening, or pericardial effusion. Coronary Artery calcifications: AORTA: No aneurysm or dissection. CHEST WALL: No mass or axillary adenopathy BONES: T11 moderate compression fracture. LIMITED ABDOMEN: No suspicious findings. Limited images of the upper abdomen. OTHER: Negative. CT/CT lung screening low-dose IMPRESSION: 1. Lung-RADS Category 3- Probably benign. Probably benign finding(s)- short term follow up suggested; includes nodules with a low likelihood of becoming a clinically active cancer. Six month LDCT. 2. Moderate compression fracture of T11; age indeterminant but suspected to be chronic. Electronically authenticated by: RENARD PORTILLO Date: 02/19/2024 08:36
--- OUTSIDE RECORDS SUMMARY | 2024-02-19 07:54 | XMS_ITS | CCD ---
Author Organization [facility] Care Team Providers Care Supervisor Garage Name Role Phone JUSTIN CEDENO Attending Unavailable JUSTIN CEDENO Admitting Unavailable DR RENARD PORTILLO Consulting Unavailable REQUEST, NONE LISTED Primary Care Unavaila ble GRECHNY, RIVER JIM Consulting Unavailable EULA, NORMAN Consulting Unavailable REQUEST, NONE LISTED Primary Care Unavaila ble EULA, NORMAN Admitting Unavailable EULA, NORMAN Attending Unavailable EULA, NORMAN Consulting Unavailable EULA, NORMAN Primary Care Unavailable EULA, NORMAN Admitting Unavailable EULA, NORMAN Attending Unavailable Florentin Valiente Unavailable LUIS TIERNEY Attending Unavailable NO PCP, NO PCP Primary Care Unavailable CONNOR, THEODORA Attending Unavailable AICEZYNEP, THEODORA Attending Unavailable BRIANA FUENTES Attending Unavailable AICHHOLZ, THEODORA Attending Unavailable AICHHOLZ, THEODORA Attending Unavailable Allergies Allergy Classification Reported Allergen(s) Allergy Type Date of Onset Reaction(s) Facility (2 sources) Codeine; Translations: [CODEINE] Drug Allergy 01-23-2022 [facility] (2 sources) Codeine Drug Allergy [employer] Other (1 source) Aspirin; Translations: [ASPIRIN] Drug Allergy 12-18-2022 [facility] Medications Current Medications Medication Drug Class(es) Dates [...] B (Bld) [Mass/Vol] 115.0 pg/mL Normal <=900.0 [facility] Comment on above: Performed By: #### C MP, TSH, HSTROPN, BNP, LIPA #### Laboratory [address] [place] [address] Dr. Ling Cifuentes CBC AUTO DIFFon 01-23-2022 BASO # 0.0 103/ul Normal 0.0-0.1 [facility] Comment on above: Performed By: #### I NFLUAB #### Laboratory [address] [place] [address] Dr. Ling Cifuentes Basophils/100 WBC (Bld) 0.2 % Normal 0.2-2.0 [facility] Comment on above: Performed By: #### I NFLUAB #### Laboratory [address] [place] [address] Dr. Ling Cifuentes EO # 0.0 103/ul Normal 0.0-0.7 [facility] Comment on above: Performed By: #### I NFLUAB #### Laboratory [address] [place] [address] Dr. Ling Cifuentes Eosinophils/100 WBC (Bld) 0.6 % Critically low 0.9-7.0 [facility] Comment on above: Performed By: #### I NFLUAB #### Laboratory [address] [place] [address] Dr. Ling Cifuentes Erythrocyte distribution width (RBC) [Ratio] 14.1 % Normal 11.0-15.0 [facility] Comment on above: Performed By: #### I NFLUAB #### Laboratory [address] [place] [address] Dr. Ling Cifuentes Hematocrit (Bld) [Volume fraction] 39.8 % Critically low 42.0-54.0 [facility] Comment on above: Performed By: #### I NFLUAB #### Laboratory [address] [place] [address] Dr. Ling Cifuentes Hemoglobin (Bld) [Mass/Vol] 13.4 g/dL Critically low 14.0-18.0 [facility] Comment on above: Performed By: #### I NFLUAB #### Laboratory [address] [place] [address] Dr. Ling Cifuentes IG # 0.01 10e3/ul Normal 0.00-0.03 [facility] Comment on above: Performed By: #### I NFLUAB #### Laboratory [address] [place] [address] Dr. Ling Cifuentes IG % 0.2 % Normal 0.0-0.5 [facility] Comment on above: Performed By: #### I NFLUAB #### Laboratory [address] [address] [address] Ling Cifuentes LYMPH # 1.3 103/ul Normal 1.2-3.8 [facility] Comment on above: Performed By: #### I NFLUAB #### Laboratory [address] [place] [address] Dr. Ling Cifuentes Lymphocytes/100 WBC (Bld) 27.2 % Normal 20.5-60.0 [facility] Comment on above: Performed By: #### I NFLUAB #### Laboratory [address] [place] [address] Dr. Ling Cifuentes MANUAL DIFF REQ NO Normal [facility] Comment on above: Performed By: #### I NFLUAB #### Laboratory [address] [place] [address] Dr. Ling Cifuentes MCH (RBC) [Entitic mass] 30.7 pg Normal 25.9-34.0 [facility] Comment on above: Performed By: #### I NFLUAB #### Laboratory [address] [place] [address] Dr. Ling Cifuentes MCHC (RBC) [Mass/Vol] 33.7 g/dL Normal 29.9-35.2 [facility] Comment on above: Performed By: #### I NFLUAB #### Laboratory [address] [place] [address] Dr. Ling Cifuentes MCV (RBC) [Entitic vol] 91.1 fL Normal 80.0-94.0 [facility] Comment on above: Performed By: #### I NFLUAB #### Laboratory [address] [place] [address] Dr. Ling Cifuentes MONO # 0.5 103/ul Normal 0.3-0.8 [facility] Comment on above: Performed By: #### I NFLUAB #### Laboratory [address] [place] [address] Dr. Ling Cifuentes Monocytes/100 WBC (Bld) 10.7 % Normal 1.7-12.0 [facility] Comment on above: Performed By: #### I NFLUAB #### Laboratory [address] [address] [address] Ling Cifuentes NEUT # 2.9 103/ul Normal 1.4-6.5 [facility] Comment on above: Performed By: #### I NFLUAB #### Laboratory [address] [address] [address] Ling Cifuentes Neutrophils/100 WBC (Bld) 61.1 % Normal 43.0-75.0 The Comment on above: Performed By: #### I NFLUAB #### Laboratory [address] [address] [address] Ling Cifuentes Platelet mean volume (Bld) [Entitic vol] 9.7 fL Normal 9.5-13.5 [facility] Comment on above: Performed By: #### I NFLUAB #### Laboratory [address] [place] [address] Dr. Ling Cifuentes PLT 157 103/ul Normal 150-450 The Comment on above: Performed By: #### I NFLUAB #### Laboratory [address] [address] [address] Ling Cifuentes RBC 4.37 106/ul Critically low 4.70-6.10 [facility] Comment on above: Performed By: #### I NFLUAB #### Laboratory [address] [address] [address] Ling Cifuentes WBC 4.8 103/ul Normal 4.0-11.0 The Comment on above: Performed By: #### I NFLUAB #### Laboratory [address] [place] [address] Dr. Ling Cifuentes [facility]03 SARS-CoV-2 (COVID-19) RNA JAYME+probe Ql (Unsp spec) Detected Critically abnormal NOT DETECTED The Comment on above: Result Comment: This test is not yet approved or cleared by the [place] FDA. When there are no FDA-approved or cleared tests available, and other criteria are met, FDA can make tests available under an emergency access mechanism called an Emergency Use Authorization (EUA). The EUA for this test is supported by the Vice President of Health and Human Service's declaration that [...] used). Performed By: #### C VDTB #### Laboratory [address] [place] [address] Dr. Ling Cifuentes ER URINE PROFILEon 2 Bilirubin Ql (U) Negative Normal NEGATIVE The [facility] Comment on above: Performed By: #### E RUR #### Laboratory [address] [place] [address] Dr. Ling Cifuentes Clarity (U) CLEAR Normal CLEAR [facility] Comment on above: Performed By: #### E RUR #### Laboratory [address] [place] [address] Dr. Ling Cifuentes Color (U) YELLOW Normal YELLOW [facility] Comment on above: Performed By: #### E RUR #### Laboratory [address] [place] [address] Dr. Ling MOSER A micrscopic examination will be performed if indicated. Normal The Comment on above: Performed By: #### E RUR #### Laboratory [address] [place] [address] Dr. Ling Cifuentes Glucose Ql (U) Negative Normal NEGATIVE [facility] Comment on above: Performed By: #### E RUR #### Laboratory [address] [place] [address] Dr. Ling Cifuentes Hemoglobin Ql (U) Negative Normal NEGATIVE The [facility] Comment on above: Performed By: #### E RUR #### Laboratory [address] [place] [address] Dr. Ling Cifuentes Ketones Ql (U) TRACE Abnormal NEGATIVE [facility] Comment on above: Performed By: #### E RUR #### Laboratory [address] [place] [address] Dr. Ling Cifuentes LEUKOCYTES Negative Normal NEGATIVE [facility] Comment on above: Performed By: #### E RUR #### Laboratory [address] [place] [address] Dr. Ling Cifuentes Nitrite Ql (U) Negative Normal NEGATIVE [facility] Comment on above: Performed By: #### E RUR #### Laboratory [address] [place] [address] Dr. Ling Cifuentes pH (U) 5.5 [pH] Normal 5-9 [facility] Comment on above: Performed By: #### E RUR #### Laboratory [address] [place] [address] Dr. Ling Cifuentes SPEC GRAVITY 1.025 Normal 1.005-<=1.025 [facility] Comment on above: Performed By: #### E RUR #### Laboratory [address] [place] [address] Dr. Ling Cifuentes UA PROTEIN Negative Normal NEGATIVE/ TRACE The Comment on above: Performed By: #### E RUR #### Laboratory [address] [place] [address] Dr. Ling Cifuentes UR MICRO IND NOT INDICATED Normal [facility] Comment on above: Performed By: #### E RUR #### Laboratory [address] [place] [address] Dr. Ling Cifuentes Urobilinogen Qn (U) 0.2 {Kranthi'U}/dL Normal 0.2 - 1. 0 [facility] Comment on above: Performed By: #### E RUR #### Laboratory [address] [place] [address] Dr. Ling Cifuentes INFLUENZA A AND B AGon 01-23 INFLUANEGH SEE BELOW Normal [facility] Comment on above: Result Comment: Nega tive for Flu A protein angiten. Infection due to Flu A cannot be ruled out. Flu A angiten in the sample may be below the detection limit of the test. Performed By: #### I NFLUAB #### Laboratory [address] [place] [address] Dr. Ling Cifuentes [facility] SEE BELOW Normal The Comment on above: Result Comment: Nega tive for Flu B protein antigen. Infection due to Flu B cannot be ruled out. Flu B antigen in the sample may be below the detection limit of the test. Performed By: #### I NFLUAB #### Laboratory [address] [place] [address] Dr. Ling Cifuentes INFLUENZA A AG Negative Normal NEGATIVE SEE COMMENT [facility] Comment on above: Performed By: #### I NFLUAB #### Laboratory [address] [place] [address] Dr. Ling Cfiuentes INFLUENZA B AG Negative Normal NEGATIVE SEE COMMENT [facility] Comment on above: Performed By: #### I NFLUAB #### Laboratory [address] [place] [address] Dr. Ling Cifuentes INTERNAL CONTROLS Within Normal Limits Normal Within Normal Limits [facility] Comment on above: Performed By: #### I NFLUAB #### Laboratory [address] [place] [address] Dr. Ling Cifuentes LACTATE/LACTIC ACIDon 2021 Lactate [Moles/Vol] 0.5 mmol/L Normal 0.4-1.9 [facility] Comment on above: Performed By: #### I NFLUAB #### Laboratory [address] [place] [address] Dr. Ling Cifuentes LIPASEon 01-23-2022 Lipase [Catalytic activity/Vol] 91.0 U/L Normal 73.0-393.0 [facility] Comment on above: Performed By: #### C MP, TSH, HSTROPN, BNP, LIPA #### Laboratory [address] [place] [address] Dr. Ling Cifuentes PROF 14(COMP METB)on 022 Albumin [Mass/Vol] 3.4 g/dL Normal 3.4-5.0 [facility] Comment on above: Performed By: #### C MP, TSH, HSTROPN, BNP, LIPA #### Laboratory [address] [place] [address] Dr. Ling Cifuentes Albumin/Globulin [Mass ratio] 1.0 {ratio} Normal [facility] Comment on above: Performed By: #### C MP, TSH, HSTROPN, BNP, LIPA #### Laboratory [address] [place] [address] Dr. Ling Cifuentes ALP [Catalytic activity/Vol] 58 U/L Normal 46-116 [facility] Comment on above: Performed By: #### C MP, TSH, HSTROPN, BNP, LIPA #### Laboratory [address] [place] [address] Dr. Ling Cifuentes ALT [Catalytic activity/Vol] 22 U/L Normal 16-63 [facility] Comment on above: Performed By: #### C MP, TSH, HSTROPN, BNP, LIPA #### Laboratory [address] [place] [address] Dr. Ling Cifuentes Anion gap [Moles/Vol] 12.8 mmol/L Normal [facility] Comment on above: Performed By: #### C MP, TSH, HSTROPN, BNP, LIPA #### Laboratory [address] [place] [address] Dr. Ling Cifuentes AST [Catalytic activity/Vol] 18 U/L Normal 15-37 [facility] Comment on above: Performed By: #### C MP, TSH, HSTROPN, BNP, LIPA #### Laboratory [address] [place] [address] Dr. Ling Cifuentes Bilirubin [Mass/Vol] 0.6 mg/dL Normal 0.2-1.0 [facility] Comment on above: Performed By: #### C MP, TSH, HSTROPN, BNP, LIPA #### Laboratory [address] [place] [address] Dr. Ling Cifuentes Calcium [Mass/Vol] 8.4 mg/dL Critically low 8.5-10.1 [facility] Comment on above: Performed By: #### C MP, TSH, HSTROPN, BNP, LIPA #### Laboratory [address] [place] [address] Dr. Ling Cifuentes Chloride [Moles/Vol] 100 mmol/L Normal 98-107 [facility] Comment on above: Performed By: #### C MP, TSH, HSTROPN, BNP, LIPA #### Laboratory [address] [place] [address] Dr. Ling Cifuentes CO2 [Moles/Vol] 25.8 mmol/L Normal 21.0-32.0 [facility] Comment on above: Performed By: #### C MP, TSH, HSTROPN, BNP, LIPA #### Laboratory [address] [place] [address] Dr. Ling Cifuentes Creatinine [Mass/Vol] 0.84 mg/dL Normal 0.70-1.30 [facility] Comment on above: Performed By: #### C MP, TSH, HSTROPN, BNP, LIPA #### Laboratory [address] [place] [address] Dr. Ling Cifuentes EGFR-AF [place] >60 Normal >=60 [facility] Comment on above: Performed By: #### C MP, TSH, HSTROPN, BNP, LIPA #### Laboratory [address] [place] [address] Dr. Ling Cifuentes EGFR-NON AF [place] >60 Normal >=60 [facility] Comment on above: Performed By: #### C MP, TSH, HSTROPN, BNP, LIPA #### Laboratory [address] [place] [address] Dr. Ling Cifuentes Globulin (S) [Mass/Vol] 3.3 g/dL Normal T [facility] Comment on above: Performed By: #### C MP, TSH, HSTROPN, BNP, LIPA #### Laboratory [address] [place] [address] Dr. Ling Cifuentes Glucose [Mass/Vol] 100 mg/dL Normal 74-106 [facility] Comment on above: Performed By: #### C MP, TSH, HSTROPN, BNP, LIPA #### Laboratory [address] [place] [address] Dr. Ling Cifuentes Potassium [Moles/Vol] 3.6 mmol/L Normal 3.5-5.1 [facility] Comment on above: Performed By: #### C MP, TSH, HSTROPN, BNP, LIPA #### Laboratory [address] [address] [address] Ling Cifuentes Protein [Mass/Vol] 6.7 g/dL Normal 6.4-8.2 [facility] Comment on above: Performed By: #### C MP, TSH, HSTROPN, BNP, LIPA #### Laboratory [address] [address] [address] Ling Cifuentes Sodium [Moles/Vol] 135 mmol/L Critically low 136-[address] [facility] Comment on above: Performed By: #### C MP, TSH, HSTROPN, BNP, LIPA #### Laboratory [address] [place] [address] Dr. Ling Cifuentes Urea nitrogen [Mass/Vol] 14.0 mg/dL Normal 7.0-18.0 [facility] Comment on above: Performed By: #### C MP, TSH, HSTROPN, BNP, LIPA #### Laboratory [address] [place] [address] Dr. Ling Cifuentes Urea nitrogen/Creatinine [Mass ratio] 16.7 mg/mg Normal [facility] Comment on above: Performed By: #### C MP, TSH, HSTROPN, BNP, LIPA #### Laboratory [address] [place] [address] Dr. Ling Cifuentes TROPONIN, HIGH SENSITIVITYon 01-23-2022 HSTROP 11.6 pg/mL Normal 4.0-76.1 [facility] Comment on above: Result Comment: CUT- OFF POINTS HAVE BEEN ESTABLISHED BASED ON THE FOURTH UNIVERSAL DEFINITIONS OF MYOCARDIAL INFARCTION. THE UPPER REFERENCE LIMIT (URL) OF TROPONIN, DEFINED THE 99TH PERCENTILE OF cTnI DISTRIBUTION IN A REFERENCE POPULATION, HAS BEEN CONFIRMED THE DECISION THRESHOLD FOR ND DIAGNOSIS. Performed By: #### C MP, TSH, HSTROPN, BNP, LIPA #### Laboratory [address] [address] [address] Ling Cifuentes TSHon 01-23-2022 TSH 0.870 uIU/mL Normal 0.358-3.740 [facility] Comment on above: Performed By: #### C MP, TSH, HSTROPN, BNP, LIPA #### Laboratory [address] [address] [address] Ling Cifuentes XR ABD FLAT UP_PA [...] RENARD PORTILLO Date: 2022-01-23 17:11 Normal The ANTI NEUTROPHIL CYTOPLASMIC AB (ANCA) PRon 12-20-2021 Antimyeloperoxidase (MPO) Abs <9.0 Normal 0.0-9.0 [facility] Comment on above: Result Comment: Perf ormed at: BN Performed By: #### I NFLUAB #### Laboratory [address] [place] [address] Dr. Ling Cifuentes Antiproteinase 3 (MI-3) Abs <3.5 Normal 0.0-3.5 [facility] Comment on above: Result Comment: Perf ormed at: BN Performed By: #### I NFLUAB #### Laboratory [address] [place] [address] Dr. Ling Cifuentes Atypical pANCA <1:20 Normal Neg:<1:20 [facility] Comment on above: Result Comment: The atypical pANCA pattern has been observed in a significant percentage of patients with ulcerative colitis, primary sclerosing cholangitis and autoimmune hepatitis. Performed at: CB Performed By: #### I NFLUAB #### Laboratory [address] [address] [address] Ling Cifuentes Cytoplasmic (C-ANCA) <1:20 Normal Neg:<1:20 [facility] Comment on above: Result Comment: Perf ormed at: CB Performed By: #### I NFLUAB #### Laboratory [address] [address] [address] Ling Cifuentes Perinuclear (P-ANCA) <1:20 Normal Neg:<1:20 [facility] Comment on above: Result Comment: The presence of positive fluorescence exhibiting P-ANCA or C-ANCA patterns alone is not specific for the diagnosis of Erasmo's Granulomatosis (WG) or microscopic polyangiitis. Decisions about treatment should not be based solely on ANCA IFA results. The International ANCA Group Consensus recommends follow up testing of positive sera with both MI-3 and MPO-ANCA enzyme immunoassays. As many as 5% serum samples are positive only by EIA. Ref. AM J Clin Pathol 1999;111:507-513. Performed at: CB Performed By: #### I NFLUAB #### Laboratory [address] [place] [address] Dr. Ling Cifuentes PASCUAL EIA W/REFLEX 5 BIOMARKER Son 12-11-2021 PASCUAL Direct Negative Normal Negative [facility] Comment on above: Performed By: #### I NFLUAB #### Laboratory [address] [address] [address] Ling Cifuentes RHEUMATOID FACTORon 12-12-19 22 RA Latex Turbid. <10.0 Normal <14.0 [facility] Comment on above: Performed By: #### R F #### Laboratory [address] [place] [address] Dr. Ling Cifuentes VITAMIN B12on 12-11-2021 Cobalamin (Vitamin B12) [Mass/Vol] 378 pg/mL Normal 232-1245 [facility] Comment on above: Performed By: #### I NFLUAB #### Laboratory [address] [place] [address] Dr. Ling Cifuentes CBC AUTO DIFFon 12-10-2021 BASO # 0.0 103/ul Normal 0.0-0.1 [facility] Comment on above: Performed By: #### C BC #### Laboratory [address] [place] [address] Dr. Ling Cifuentes Basophils/100 WBC (Bld) 0.4 % Normal 0.2-2.0 [facility] Comment on above: Performed By: #### C BC #### Laboratory [address] [place] [address] Dr. Ling Cifuentes EO # 0.1 103/ul Normal 0.0-0.7 [facility] Comment on above: Performed By: #### C BC #### Laboratory [address] [place] [address] Dr. Ling Cifuentes Eosinophils/100 WBC (Bld) 0.8 % Critically low 0.9-7.0 [facility] Comment on above: Performed By: #### C BC #### Laboratory [address] [place] [address] Dr. Ling Cifuentes Erythrocyte distribution width (RBC) [Ratio] 12.9 % Normal 11.0-15.0 [facility] Comment on above: Performed By: #### C BC #### Laboratory [address] [place] [address] Dr. Ling Cifuentes Hematocrit (Bld) [Volume fraction] 46.2 % Normal 42.0-54.0 [facility] Comment on above: Performed By: #### C BC #### Laboratory [address] [place] [address] Dr. Ling Cifuentes Hemoglobin (Bld) [Mass/Vol] 15.3 g/dL Normal 14.0-18.0 [facility] Comment on above: Performed By: #### C BC #### Laboratory [address] [place] [address] Dr. Ling Cifuentes IG # 0.06 10e3/ul Critically high 0.00-0.03 [facility] Comment on above: Performed By: #### C BC #### Laboratory [address] [place] [address] Dr. Ling Cifuentes IG % 0.6 % Critically high 0.0-0.5 [facility] Comment on above: Performed By: #### C BC #### Laboratory [address] [place] [address] Dr. Ling Cifuentes LYMPH # 2.3 103/ul Normal 1.2-3.8 [facility] Comment on above: Performed By: #### C BC #### Laboratory [address] [place] [address] Dr. Ling Cifuentes Lymphocytes/100 WBC (Bld) 21.3 % Normal 20.5-60.0 [facility] Comment on above: Performed By: #### C BC #### Laboratory [address] [place] [address] Dr. Ling Cifuentes MANUAL DIFF REQ NO Normal [facility] Comment on above: Performed By: #### C BC #### Laboratory [address] [place] [address] Dr. Ling Cifuentes MCH (RBC) [Entitic mass] 30.8 pg Normal 25.9-34.0 [facility] Comment on above: Performed By: #### C BC #### Laboratory [address] [place] [address] Dr. Ling Cifuentes MCHC (RBC) [Mass/Vol] 33.1 g/dL Normal 29.9-35.2 [facility] Comment on above: Performed By: #### C BC #### Laboratory [address] [place] [address] Dr. Ling Cifuentes MCV (RBC) [Entitic vol] 93.0 fL Normal 80.0-94.0 [facility] Comment on above: Performed By: #### C BC #### Laboratory [address] [place] [address] Dr. Ling Cifuentes MONO # 0.8 103/ul Normal 0.3-0.8 [facility] Comment on above: Performed By: #### C BC #### Laboratory [address] [place] [address] Dr. Ling Cifuentes Monocytes/100 WBC (Bld) 7.2 % Normal 1.7-12.0 [facility] Comment on above: Performed By: #### C BC #### Laboratory [address] [address] [address] Ling Cifuentes NEUT # 7.4 103/ul Critically high 1.4-6.5 [facility] Comment on above: Performed By: #### C BC #### Laboratory [address] [address] [address] Ling Cifuentes Neutrophils/100 WBC (Bld) 69.7 % Normal 43.0-75.0 [facility] Comment on above: Performed By: #### C BC #### Laboratory [address] [address] [address] Ling Cifuentes Platelet mean volume (Bld) [Entitic vol] 8.6 fL Critically low 9.5-13.5 [facility] Comment on above: Performed By: #### C BC #### Laboratory [address] [place] [address] Dr. Ling Cifuentes PLT 373 103/ul Normal 150-450 [facility] Comment on above: Performed By: #### C BC #### Laboratory [address] [place] [address] Dr. Ling Cifuentes RBC 4.97 106/ul Normal 4.70-6.10 [facility] Comment on above: Performed By: #### C BC #### Laboratory [address] [place] [address] Dr. Ling Cifuentes WBC 10.7 103/ul Normal 4.0-11.0 [facility] Comment on above: Performed By: #### C BC #### Laboratory [address] [place] [address] Dr. Ling Cifuentes CRPon 12-10-2021 CRP 5.4 mg/dL Critically high <=1.0 [facility] Comment on above: Performed By: #### I NFLUAB #### Laboratory [address] [place] [address] Dr. Ling Cifuentes PROF 14(COMP METB)on 022 Albumin [Mass/Vol] 3.6 g/dL Normal 3.4-5.0 [facility] Comment on above: Performed By: #### I NFLUAB #### Laboratory [address] [place] [address] Dr. Ling Cifuentes Albumin/Globulin [Mass ratio] 0.9 {ratio} Normal [facility] Comment on above: Performed By: #### I NFLUAB #### Laboratory [address] [address] [address] Ling Cifuentes ALP [Catalytic activity/Vol] 69 U/L Normal 46-116 [facility] Comment on above: Performed By: #### I NFLUAB #### Laboratory [address] [address] [address] Ling Cifuentes ALT [Catalytic activity/Vol] 13 U/L Critically low 16-63 [facility] Comment on above: Performed By: #### I NFLUAB #### Laboratory [address] [address] [address] Ling Cifuentes Anion gap [Moles/Vol] 12.2 mmol/L Normal [facility] Comment on above: Performed By: #### I NFLUAB #### Laboratory [address] [place] [address] Dr. Ling Cifuentes AST [Catalytic activity/Vol] 11 U/L Critically low 15-37 [facility] Comment on above: Performed By: #### I NFLUAB #### Laboratory [address] [address] [address] Ling Cifuentes Bilirubin [Mass/Vol] 0.8 mg/dL Normal 0.2-1.0 [facility] Comment on above: Performed By: #### I NFLUAB #### Laboratory [address] [address] [address] Ling Cifuentes Calcium [Mass/Vol] 8.8 mg/dL Normal 8.5-10.1 [facility] Comment on above: Performed By: #### I NFLUAB #### Laboratory [address] [address] [address] Ling Cifuentes Chloride [Moles/Vol] 99 mmol/L Normal 98-107 [facility] Comment on above: Performed By: #### I NFLUAB #### Laboratory [address] [address] [address] Ling Cifuentes CO2 [Moles/Vol] 29.8 mmol/L Normal 21.0-32.0 [facility] Comment on above: Performed By: #### I NFLUAB #### Laboratory [address] [address] [address] Ling Cifuentes Creatinine [Mass/Vol] 0.76 mg/dL Normal 0.70-1.30 [facility] Comment on above: Performed By: #### I NFLUAB #### Laboratory [address] [place] [address] Dr. Ling Cifuentes EGFR-AF S[place]TH [place] >60 Normal >=60 [facility] Comment on above: Performed By: #### I NFLUAB #### Laboratory [address] [place] [address] Dr. Ling Cifuentes EGFR-NON AF [place] >60 Normal >=60 [facility] Comment on above: Performed By: #### I NFLUAB #### Laboratory [address] [address] [address] Ling Cifuentes Globulin (S) [Mass/Vol] 3.9 g/dL Normal T [facility] Comment on above: Performed By: #### I NFLUAB #### Laboratory [address] [place] [address] Dr. Ling Cifuentes Glucose [Mass/Vol] 101 mg/dL Normal 74-106 [facility] Comment on above: Performed By: #### I NFLUAB #### Laboratory [address] [address] [address] Ling Cifuentes Potassium [Moles/Vol] 4.0 mmol/L Normal 3.5-5.1 The Comment on above: Performed By: #### I NFLUAB #### Laboratory [address] [place] [address] Dr. Ling Cifuentes Protein [Mass/Vol] 7.5 g/dL Normal 6.4-8.2 [facility] Comment on above: Performed By: #### I NFLUAB #### Laboratory [address] [address] [address] Ling Cifuentes Sodium [Moles/Vol] 137 mmol/L Normal 136-145 [facility] Comment on above: Performed By: #### I NFLUAB #### Laboratory [address] [address] [address] Ling Cifuentes Urea nitrogen [Mass/Vol] 9.0 mg/dL Normal 7.0-18.0 [facility] Comment on above: Performed By: #### I NFLUAB #### Laboratory [address] [place] [address] Dr. Ling Cifuentes Urea nitrogen/Creatinine [Mass ratio] 11.8 mg/mg Normal [facility] Comment on above: Performed By: #### I NFLUAB #### Laboratory [address] [place] [address] Dr. Ling Cifuentes SED RATE [facility] 2021 SED RATE 51 mm/hr Critically high <=20 [facility] Comment on above: Performed By: #### I NFLUAB #### Laboratory [address] [place] [address] Dr. Ling Cifuentes TSHon 12-10-2021 TSH 1.293 uIU/mL Normal 0.358-3.740 [facility] Comment on above: Performed By: #### I NFLUAB #### Laboratory [address] [place] [address] Dr. Ling Cifuentes TSH RANGE SEE BELOW Normal [facility] Comment on above: Result Comment: <0.3 4 UIU/ml HYPERTHYROID 0.34-5.60 UIU/ml EUTHYROID >5.60 UIU/ml HYPOTHYROID Performed By: #### I NFLUAB #### Laboratory [address] [place] [address] Dr. Ling Cifuentes Reminderson 11-06-2021 Reminders -- From: Theodora Martinez MA To: EU - Clinical; Sent: 07/17/2021 15:51:53 EST Show up: 10/02/2021 15:51:00 EST Subject: MRI In Spring Reminder Message MRI at [facility] Order will need resent for Precert Order faxed to [facility] Spoke to [facility] and MRI has not been approved yet patient is scheduled 10-31-21 @ 7:30am per [facility] CS Looked in clinisync no results yet. Pt canceled MRI of prostate on 10/23/21 stated from CS, and pt didn't want to reschedule Normal [facility] Pre-Certification Formon Pre-Certification Form [id number] E9#1.00CD:127 [facility] Reminderson 07-13-2021 Reminders -- From: Brook PACK, Angie Farah To: EU - Clinical; Sent: 06/22/2021 14:06:02 EST Show up: 07/02/2021 07:00:00 EST Subject: scheduling MRI prostate Due Date/Time: 07/04/2021 07:00:00 EST Reminder/Recall Order for Prostate MRI has been sent to [facility]. They will precert and call pt to schedule. Please make sure Dr Rizvi sees the results. Thanks!! no results yet Spoke to [facility] CS and was told they called Pt. on Jul 03 and Pt. told them to call him back to schedule sometime this week. Spoke to [facility] CS and was told Pt. has not returned their phone calls to schedule. PT called [facility] CS and told them he did not want to get the MRI he wanted to wait. [facility] Pre-Certification Formon Pre-Certification Form [id number] 80#1.00CD:127 [facility] Lab Reportson 06-25-2021 Lab Reports [id number] 412#1.00CD:127 [facility] Lab Reports [id number] 71#1.00CD:127 Normal [facility] Physician Referralon 021 Physician Referral [id number] 178#1.00CD:127 Normal [facility] Patient Educationon 06-22-20 21 Patient Education Oncology [...] including vitamins, herbs, eye drops, creams, and lwmu-ysq-uolqvck medicines. This also includes: ? Medicines to [...] 08/23/2005 Document Revised: 07/03/2018 Document Reviewed: 04/27/2018 [employer] Patient Education ? 2020 [employer] Normal [facility] PSA Diagnostic (Total Free)o n 06-12-2021 Prostate Spec Ag, Free 0.750 ng/mL Normal [facility] Comment on above: Order Comment: Reaso n for Exam Elevated PSA Performed By: #### P SATF #### [address] PSA Total (Not a Screen) 5.790 ng/mL High 0.000-4.000 [facility] Comment on above: Order Comment: Reaso n for Exam Elevated PSA Performed By: #### P SATF #### [address] PSA,FREE% 12.0 % Normal [facility] Comment on above: Order Comment: Reaso n for Exam Elevated PSA Result Comment: Base d on the work of Jeff et al.DAVID. 279(19):1542:47.1998 the percent free PSA may be used [...] 10% 20% >25 5% 9% PERFORMED BY: [place] [address] PATHOLOGIST PRE PRESS OPERATOR LUDIN FITZGERALD M.D. Performed By: #### P SATF #### [address] Complete Pulmonary Functiono n 05-30-2021 Complete Pulmonary Function [facility] [place] [address] [place] [address] Pulmonary Function Signed Patient: Effie Chambers MR#: [id number] 8 : 1960 Acct:[id number] Age/Sex: 61 / M ADM Date: 05/25/21 Loc: RT Room: Type: [facility] CLI Attending Dr: Florentin Valiente DO Ordering Provider: [...] FEV1/FVC ratio was markedly reduced to 37%. UWA12-94% was profoundly reduced to 0.42 L/sec, which [...] MD 05/30/21 0836 Signed By: 05/31/21 0832 [facility] Lipid Panelon 05-25-2021 Cholesterol [Mass/Vol] 246 mg/dL High 140-200 [facility] Comment on above: Order Comment: Reaso n for Exam Screening for cardiovascular condition Result Comment: Chol less than 200 mg/dl low risk Chol 201-239 mg/dl borderline risk Chol 240 mg/dl and greater high risk Performed By: #### P SAS, LIPID #### [address] Cholesterol in HDL [Mass/Vol] 44 mg/dL Normal 29-71 [facility] Comment on above: Order Comment: Reaso n for Exam Screening for cardiovascular condition Result Comment: HDL CHOL ATP-III CLASSIFICATION Cardiovascular Risk HDL > or equal to 60 mg/dL LOW HDL < 40 mg/dL HIGH Performed By: #### P SAS, LIPID #### [facility] [address] Cholesterol.total/Sarai sterol in HDL [Mass ratio] 5.6 {ratio} Normal <5.0 [facility] Comment on above: Order Comment: Reaso n for Exam Screening for cardiovascular condition Result Comment: PERF ORMED BY: [place] [address] PATHOLOGIST PRE PRESS OPERATOR LUDIN FITZGERALD M.D. Performed By: #### P SAS, LIPID #### [facility] [address] LDL Cholesterol,Calculated 186 mg/dL High 0-100 [facility] Comment on above: Order Comment: Reaso n for Exam Screening for cardiovascular condition Result Comment: LDL ATP III CLASSIFICATION LDL less than 100 mg/dL Optimal LDL 100-129 mg/dL Near or above optimal LDL 130-159 mg/dL Borderline high LDL 160-189 mg/dL High LDL greater than 189 mg/dL Very high Performed By: #### P SAS, LIPID #### [facility] [address] Triglyceride w/Reflex 81 mg/dL Normal 35-149 [facility] Comment on above: Order Comment: Reaso n for Exam Screening for cardiovascular condition Result Comment: TRIG ATP III CLASSIFICATION TRIG less than 150 mg/dL Normal TRIG 150-199 mg/dL Borderline high TRIG 200-500 mg/dL High TRIG greater than 500 mg/dL Very high Standard traceable to the Center for Disease Conrtrol and Prevention (CDC) test method. Performed By: #### P SAS, LIPID #### [facility] [address] VLDL CHOLESTEROL 16 mg/dL Normal [facility] Comment on above: Order Comment: Reaso n for Exam Screening for cardiovascular condition Performed By: #### P SAS, LIPID #### [facility] [address] [place] [address] [place] PSA Screen (Yearly Only)on PSA Screen (Yearly Only) 6.170 ng/mL High 0.000-4.000 [facility] Comment on above: Order Comment: Reaso n for Exam Screening for prostate cancer Is patient <50 yrs? Medicare does not pay <50.: Y What is the date of the last PSA Screen?: 614051 Is Medicare the insurance?: Y Did you verify eligibility (Dx Time) check TestViewGp: YES TO ALL Result Comment: PERF ORMED BY: [place] [id number] PATHOLOGIST PRE PRESS OPERATOR LUDIN FITZGERALD M.D. Performed By: #### P SAS, LIPID #### [facility] [address] [place] [address] [place] Outside Recordson 02-14-2020 Outside Records [id number] [facility] [id number] 09[facility] Outside Records [id number] 37[facility] Outside Recordson 10-08-2019 Outside Records [id number] 0318[facility] Outside Records [id number] 0167#1.00[facility] Coding Queryon 09-30-2019 Coding Query [id number] 66#1.00[facility] Coding Summaryon 09-30-2019 Coding Summary CODING DATE: 09/30/2019 [facility] STATUS: Home PAYOR: Medicare APC DESCRIPTION 5522 [...] Orly Yanez Date Saved: 09/30/2019 04:47 pm [facility] Release of Informationon Release of Information [id number] [facility] Rad - Bone Density Reporton 09-29-2019 Rad - Bone Density Report [id number] 85[facility] BD Bone Density DEXA Studyon 09-28-2019 [...] Mitul Cuellar MD 09/28/19 4:06 pm Technologist: JOSE [facility] Outside Recordson 09-27-2019 Outside Records [id number] 02#1.00[facility] Ambulatory Patient Summaryon 09-20-2019 Ambulatory Patient Summary [facility] [address] [facility], [address] Visit Summary For EFFIE CHAMBERS We would like to thank you for allowing us to assist you with your healthcare needs. Our entire staff strives to provide an excellent experience for our patients and their families. The following includes information regarding your visit. Age: 59 years Sex: MALE : 1960 Address: [address] [place] [address], [address] Home: Work: -- Mobile: -- Primary Care Provider: JESSICA GUZMÁN DO Race: Declined Ethnicity: Not or Language: [place] Health Plan: 1?MEDICARE, 2?MEDICAID [place] Reason [...] drug addiction problems; contact the [facility] 24/02 Crisis Hotline -Text 4HOPE to 906585. Follow-Up Information Referral Orders BD Bone Density DEXA Study 09/20/19 Routine, See Dx, Allow Modification Per Radiologist, Transport Mode: Walk, History of vertebral fracture, Order for future visit Future Appointments [facility] Phone: -- Fax: -- Appt. Date: [...] documented Home Medications No reported medications documented [facility] Patient Handouton 09-20-2019 Patient Handout [facility] Outside Recordson 08-25-2019 Outside Records [id number] 6298#1.00OTGTIFF [facility] Ambulatory Patient Summaryon 08-19-2019 Ambulatory Patient Summary [facility] [address] [place] [address], [address] Visit Summary For EFFIE CHAMBERS We would like to thank you for allowing us to assist you with your healthcare needs. Our entire staff strives to provide an excellent experience for our patients and their families. The following includes information regarding your visit. Age: 59 years Sex: MALE : 1960 Address: [address] [place] [address], [address] Home: Work: -- Mobile: -- Primary Care Provider: JESSICA GUZMÁN Race: Declined Ethnicity: Not or Language: [place] Health Plan: 1?MEDICARE, 2?MEDICAID [place] Reason [...] drug addiction problems; contact the [facility] 24/02 Crisis Hotline -Text 4[place] 745116. Follow-Up Information Referral Orders Future Appointments No [...] documented Home Medications No reported medications documented [facility] Patient Handouton 08-19-2019 Patient Handout Normal [facility] Vital Signs Date Time Vital Sign Value Performing Clinician Facility 06-19-2021 09:00-0500 Body height 183.52 cm Florentin Valiente Other [facility] Other 06-19-2021 09:00-0500 Body mass index (BMI) [Ratio] 28.01 kg/m2 Florentin Valiente Other [facility] Other 06-19-2021 09:00-0500 Body weight 94.35 kg Florentin Valiente Other [facility] Other 06-19-2021 09:00-0500 Diastolic blood pressure 86 mm[Hg] Florentin Valiente Other [facility] Other 06-19-2021 09:00-0500 Respiratory rate 18 /min Florentin Valiente Other [facility] Other 06-19-2021 09:00-0500 SaO2% (BldA) [Mass fraction] 98 % Florentin Valiente Other [facility] Other 06-19-2021 09:00-0500 Systolic blood pressure 144 mm[Hg] Florentin Valiente Other [facility] Other Encounters Encounter Date Encounter Type Care Provider Facility Start: 01-21-2024 End: 01-21-2024 ambulatory THEODORA AICHHOLZ Not Available Start: 12-11-2023 End: 12-11-2023 ambulatory [facility] Start: 12-01-2023 End: 12-01-2023 ambulatory THEODORA AICHHOLZ Not Available Start: 10-29-2023 End: 10-29-2023 ambulatory THEODORA AICHHOLZ Not Available Start: 09-25-2023 End: 09-25-2023 ambulatory THEODORA AICHHOLZ Not Available Start: 07-03-2023 End: 07-03-2023 ambulatory BRIANA A PETCHARLEEI Not Available Start: 01-23-2022 End: 01-23-2022 ambulatory JUSTIN PAO Facility:[facility] Start: 12-18-2021 End: 12-19-2021 ambulatory NORMAN EULA Facility:[facility] Start: 12-10-2021 End: 12-11-2021 ambulatory NORMAN EULA Facility:[facility] Start: 06-20-2021 End: 06-20-2021 ambulatory Florentin Valiente Other [facility] Other Start: 06-20-2021 Telephone encounter [facility] Start: 06-19-2021 End: 06-19-2021 ambulatory Florentin Valiente Other [facility] Other Start: 06-19-2021 Office [facility] Date Payer Category Payer Medicaid [id number] 1961 Unknown [id number] 1960 Unknown [id number] 2.16.84 [id number] 1960 Unknown [id number] 2.16.84 [id number] 1960 Unknown [id number] 2.16.84 0.1.056304.3.579.2.593 1960 Unknown [id number] 2.16.8 [id number] 1960 Unknown [id number] 2.16.84 0.1.716336.3.579.2.1259 1960 Unknown [id number] 2.16.84 0.1.463938.3.579.2.1259 1960 Unknown [id number] 2.16.84 0.1.595097.3.579.2.1259 1960 Unknown [id number] 2.16.84 0.1.084238.3.579.2.1259 1960 Unknown [id number] 2.16.840 .[id number] Medicare [id number] 2.1 [id number] Social History Date Type Detail Facility Sex Assigned At [facility] Other Clinical Note 06-22-2021 Note Date & [...] w/o contrast Office Visit Level 4 New 29634 Urnls Dip Stick Auto w/o Microscopy POC 34890 2. 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 Cont ASA 81 mg. Strong family hx of CAD, MIs. Ordered: Office Visit Level 4 New 39516 3. Tobacco use (Z72.0: Tobacco use) Counseled on risks of prostate cancer and smoking, he will try patches to quit. He declined further assistance today, as he knows the resources to contact if needed. Ordered: Office Visit Level 4 New [address]25 I have reviewed the previous health record information and history for this pt. from external provider, Dr. Bashir. Follow-up With When Contact Information Dmitri MISHRA, Tina Walden, URL, [facility] [address], [place] [address]- [phone] Additional Instructions: Patient Education Prostate-Specific Antigen Test [...] lower extremity Xena (more content not included)... [facility] Comment on above: Result Comment: Elec tronically Signed By: Tina Rizvi MD\.br\Date and Time Signed: 06/22/21 14:10 EST\.br\Electronically Co-Signed By: Radha Mahan MA\.br\Date and Time Co-Signed: 06/22/21 13:53 EST\.br\Electronically Co-Signed By: Radha Mahan MA\.br\Date and Time Co-Signed: 06/22/21 13:55 EST Evaluation note Note Date & Type Note Facility Evaluation note [facility] Other Evaluation note Note Date & Type Note Facility Evaluation note [facility] Other History general Narrative - Reported Note Date & Type Note Facility History general Narrative - Reported [facility] Other History general Narrative - Reported Note Date & Type Note Facility History general Narrative - Reported [facility] Other Summary Purpose Family History No Family [...] section and content) DATE CREATED AUTHOR 08/07/2020 [facility] DATE CREATED AUTHOR AUTHOR'S ORGANIZ ATION 06/12/2021 [facility] DATE CREATED AUTHOR AUTHOR'S ORGANIZ ATION 11/08/2021 [facility] DATE CREATED AUTHOR AUTHOR'S ORGANIZ ATION 01/24/2022 [facility] DATE CREATED AUTHOR AUTHOR'S ORGANIZ ATION 12/13/2023 [facility] DATE CREATED AUTHOR AUTHOR'S ORGANIZ ATION 01/22/2024 [facility] FOR RECORDS PERTAINING TO PATIENTS WHO [...] BE BASED ON THE PRIMARY CLINICAL RECORDS. [employer] provides no warranty or guarantee of the accuracy or completeness of information in this document.
== END 2024-02-19 07:52 | disposition home or self-care (01) ==
LOC: CT 07:51
PROVIDERS: PCP Nurse Practitioner; Visit Provider Internal Medicine
DX: F17.219 Nicotine dependence, cigarettes, with unspecified nicotine-induced disorders (principal); Z12.2 Encounter for screening for malignant neoplasm of respiratory organs
CPT/HCPCS: 71271

== ENCOUNTER 2024-08-02 08:41 | Outpatient (OUT) | payer MEDICARE, MEDICAID, SELFPAY ==
--- NOTE | 2024-08-02 08:44 | CT_ITS ---
[address] [address] Patient Name: EFFIE CHAMBERS MRN: [facility]:[id number] date: 1960 Sex: M Assigned Patient Location: CT Current Patient Location: Accession/Order Number: [id number] Exam Date: 08/02/2024 08:55 Report Date: 08/04/2024 03:45 At the request of: SAMMY CAMACHO Procedure: CT chest wo con EXAMINATION: CT chest wo con HISTORY: Solitary Pulmonary Nodule COMPARISON: CT Lung Screening 02/19/2024 TECHNIQUE: Axial, Coronal, and Sagittal images were created without the administration of IV contrast material. Dose reduction techniques were achieved by using automated exposure control and/or adjustment of mA and/or kV according to patient size and/or use of iterative reconstruction technique. FINDINGS: LUNGS: Stable 6 mm nodule within right middle lobe (this is partially distorted on today's study due to respiratory motion artifact). Stable 9 x 4 mm nodule within posterior medial left lung base. No new nodules. Moderate to marked emphysematous changes. PLEURA: No mass, effusion, or pneumothorax. VASCULATURE: No abnormality. KYMBERLY: No mass or pathologic adenopathy. MEDIASTINUM: No mass or pathologic adenopathy. CARDIAC: No enlargement, pericardial thickening, or pericardial effusion. Coronary Artery calcifications: Coronary calcifications are mild. AORTA: No aneurysm or dissection. CHEST WALL: No mass or axillary adenopathy BONES: T11 mild compression fracture, unchanged, and suspected to be chronic. LIMITED ABDOMEN: 5.9 cm left renal cysts incompletely included on today's study, but favoring benign etiology. Limited images of the upper abdomen. OTHER: Negative. CT/CT chest wo con IMPRESSION: 1. Lung-RADS 2- Benign Appearance or Behavior. Nodules with a very low likelihood of becoming a clinically active cancer due to size or lack of growth. Follow-up CT Chest in 1 year. Electronically authenticated by: RENARD PORTILLO Date: 08/04/2024 03:45
--- OUTSIDE RECORDS SUMMARY | 2024-08-02 09:02 | XMS_ITS | CCD ---
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 Name Role Phone JUSTIN CEDENO Attending Unavailable JUSTIN CEDENO Admitting Unavailable DR RENARD PORTILLO Consulting Unavailable REQUEST, NONE LISTED Primary Care Unavaila ble THELMA, RIVER JIM Consulting Unavailable EULA, NORMAN Consulting Unavailable REQUEST, NONE LISTED Primary Care Unavaila ble EULA, NORMAN Admitting Unavailable EULA, NORMAN Attending Unavailable EULA, NORMAN Consulting Unavailable EULA, NORMAN Primary Care Unavailable EULA, NORMAN Admitting Unavailable EULA, NORMAN Attending Unavailable Florentin Valiente Unavailable LUIS TIERNEY Attending Unavailable NO PCP, NO PCP Primary Care Unavailable Aleks MISHRA, Akil Primary Care Provider [phone] Roni MISHRA, Unavailable Stephen MANAGER AREA, Theodora Unavailable Laura Barger LPN Unavailable Unavailable Mary Bain MA Unavailable Unavailable AICHHOLZ, THEODORA Attending Unavailable AICHHOLZ, THEODORA Attending Unavailable BRIANA FUENTES Attending Unavailable AICHHOLZ, THEODORA Attending Unavailable AICHHOLZ, THEODORA Attending Unavailable AICHHOLZ, THEODORA Attending Unavailable AICHHOLZ, THEODORA Attending Unavailable AICHHOLZ, THEODORA Attending Unavailable Laxmi Hdz LPN Unavailable Unavailable Allergies Allergy Classification Reported Allergen(s) Allergy Type Date of Onset Reaction(s) Facility (2 sources) Codeine; Translations: [CODEINE] Drug Allergy 2 [facility] Repository (11 sources) Codeine Drug Allergy 2 Other, Itching [facility] [employer] Other (10 sources) Aspirin; Translations: [ASPIRIN] Drug Allergy 3 Swelling [facility]ository (9 sources) Cortisone Drug Allergy 9 Anxiety, Other, Dizziness [facility] (9 sources) Ibuprofen Drug Allergy 2 GI intolerance [facility] (9 sources) Other Propensity to adverse reactions 0 Nausea And Vomiting [facility] Medications Current Medications Medication Drug Class(es) Dates Sig (Normalized) Sig (Original) [id number] 200 actuat albuterol 0.09 mg/actuat metered dose inhaler (11 sources) beta2-Adrenergic Agonist Start: 03-15-2024 take 2 puff(s) by inhalation every six hours for wheezing albuterol HFA 90 mcg/act inhaler Inhale 2 puffs every 6 (six) hours if needed for shortness of breath or wheezing 03/15/2024 Active Start: 12-01-2023 End: 03-30-2024 take 2 puff(s) by inhalation every six hours as needed for wheezing albuterol (ProAir RespiClick) 90 mcg/act breath-activated inhaler Indications: COPD mixed type (CMS/HCC) 2 puffs every 6 hours as needed for wheezing or shortness of breath 1 each 1 12/01/2023 03/30/2024 Discontinued (Cost of medication) Aspirin (2 sources) Platelet Aggregation Inhibitor, Nonsteroidal Anti-inflammatory Drug 12 hr buPROPion hydrochloride 150 mg extended release oral tablet (5 sources) Aminoketone Start: 024 End: 024 buPROPion SR (Wellbutrin SR) 150 MG 12 hr tablet Indications: Tobacco use Start with 1 pill daily for 3 days, then increase to twice a day. Do not crush, chew, or split. 60 tablet 1 05/24/2024 06/22/2024 Discontinued (Therapy completed) ciclopirox 10 mg/ml medicated shampoo (9 sources) Start: 023 Ciclopirox 1 % shampoo Indications: Other seborrheic dermatitis Lather on wet hair, leave on 5 min, rinse 2-3 x week, 30 day supply 120 mL 11 07/03/2023 Active 30 actuat fluticasone furoate 0.1 mg/actuat / umeclidinium 0.0625 mg/actuat / vilanterol 0.025 mg/actuat dry powder inhaler (9 sources) Anticholinergic, Corticosteroid, beta2-Adrenergic Agonist Start: take 1 puff(s) by mouth once daily Fluticasone-Umeclidi n-Vilant (Trelegy Ellipta) 100-62.5-25 MCG/ACT aerosol powder Indications: COPD mixed type (CMS/HCC) Inhale 1 puff Daily Rinse mouth after use 1 each 5 12/01/2023 Active gabapentin 300 mg oral capsule (2 sources) Anti-epileptic Agent take 1 capsule by mouth every eight hours ketoconazole 20 mg/ml medicated shampoo (9 sources) Azole Antifungal Start: ketoconazole (NIZOral) 2 % shampoo lather onto face and scalp, leave on 5 minutes then rinse topically 3-5 times weekly as needed for 30 day(s) 03/06/2022 Active metroNIDAZOLE 0.0075 mg/mg topical gel (6 sources) Nitroimidazole Antimicrobial Start: metroNIDAZOLE (Metrogel) 0.75 % gel Apply topically 04/28/2024 Active rosuvastatin calcium 20 mg oral tablet (2 sources) HMG-CoA Reductase Inhibitor take 1 tablet by mouth every twenty-four hours Spiriva Respimat 2.5 mcg/actuation (1 source) triamcinolone acetonide 1 mg/ml topical cream (2 sources) Corticosteroid Start: Problems Active Problems Problem Classification Problem Date Documented Da te Episodic/Chronic Acute cerebrovascular disease (9 sources) Cerebrovascular accident; Translations: [Cerebral infarction, unspecified] Onset: 09-25-2023 09-25-2023 Chronic Allergic reactions (3 sources) Atopic dermatitis; Translations: [Atopic dermatitis, unspecified] Onset: 06-19-2021 Resolved: 06-19-2021 Chronic Chronic obstructive pulmonary disease and bronchiectasis (20 sources) Chronic obstructive pulmonary disease with (acute) exacerbation; Translations: [Chronic obstructive lung disease] Onset: 06-20-2021 Resolved: 06-20-2021 Chronic Disorders of lipid metabolism (12 sources) Mixed hyperlipidemia; Translations: [Mixed hyperlipidemia] Onset: 06-19-2021 Resolved: 06-19-2021 Chronic Other connective tissue disease (4 sources) Fibromyalgia; Translations: [FIBROMYALGIA] Onset: 12-18-2021 Episodic Other ear and sense organ disorders (9 sources) Sensorineural hearing loss, bilateral; Translations: [Sensorineural hearing loss, bilateral] Onset: 09-25-2023 09-25-2023 Chronic Other gastrointestinal disorders (4 sources) Constipation, unspecified; Translations: [CONSTIPATION UNSPECIFIED] Onset: 01-23-2022 Episodic Other inflammatory condition of skin (9 sources) Rosacea; Translations: [Rosacea, unspecified] Onset: 01-21-2024 01-21-2024 Chronic Other lower respiratory disease (1 source) Shortness of breath; Translations: [SHORTNESS OF BREATH] Onset: 01-24-2022 Episodic Other lower respiratory disease (8 sources) Solitary nodule of lung; Translations: [Solitary pulmonary nodule] Onset: 03-30-2024 03-30-2024 Episodic Other nervous system disorders (9 sources) Lumbosacral plexus neuropathy; Translations: [Lumbosacral plexus disorders] Onset: 10-29-2023 10-29-2023 Chronic Other nervous system disorders (12 sources) Chronic pain syndrome; Translations: [Chronic pain syndrome] Onset: 03-30-2024 03-30-2024 Chronic Other nutritional; endocrine; and metabolic disorders (13 sources) Body mass index 30+ - obesity; Translations: [Obesity, unspecified] Onset: 12-01-2023 12-01-2023 Chronic Other nutritional; endocrine; and metabolic disorders (11 sources) Overweight in adulthood with body mass index of 25 or more but less than 30; Translations: [Body mass index (BMI) 29.0-29.9, adult] Onset: 09-25-2023 Resolved: 06-22-2024 09-25-2023 Episodic Residual codes; unclassified (15 sources) Tobacco use and exposure - finding; Translations: [Tobacco use] Onset: 09-25-2023 05-24-2024 Episodic Substance-related disorders (3 sources) Nicotine dependence, cigarettes, uncomplicated; Translations: [Smoker] Onset: 01-24-2022 Chronic Viral infection (1 source) COVID-19; Translations: [COVID-19] Onset: 01-24-2022 Past or Other Problems Problem Classification Problem Date Documented Date Episodic/Chronic Immunizations and screening for infectious disease (9 sources) Anti-nuclear factor positive; Translations: [Other specified abnormal immunological findings in serum] Onset: 10-09-2022 09-25-2023 Episodic Mood disorders (9 sources) Mood disorders Onset: 12-01-2023 12-01-2023 Other connective tissue disease (9 sources) Fibromyalgia; Translations: [Fibromyalgia] Onset: 10-09-2022 09-25-2023 Episodic Other ear and sense organ disorders (9 sources) Tinnitus of left ear; Translations: [Tinnitus, left ear] Onset: 09-25-2023 09-25-2023 Episodic Other injuries and conditions due to external causes (9 sources) History of traumatic vertebral fracture; Translations: [Personal history of (healed) traumatic fracture] Onset: 09-25-2023 09-25-2023 Episodic Other screening for suspected conditions (not mental disorders or infectious disease) (10 sources) Elevated prostate specific antigen [PSA]; Translations: [Raised prostate specific antigen] Onset: 06-19-2021 Resolved: 06-19-2021 Episodic Spondylosis; intervertebral disc disorders; other back problems (17 sources) Neck pain; Translations: [Cervicalgia] Onset: 09-25-2023 Resolved: 03-30-2024 09-25-2023 Episodic Unclassified (9 sources) Onset: 12-24-2023 12-24-2023 Results Test Name Value Interpretation Reference Range Facility BNPon 01-23-2022 Natriuretic peptide B (Bld) [Mass/Vol] 115.0 pg/mL Normal <=900.0 [facility] Comment on above: Performed By: #### C MP, TSH, HSTROPN, BNP, LIPA #### [facility] [address] [place] [address] Dr. Ling Cifuentes CBC AUTO DIFFon 01-23-2022 BASO # 0.0 103/ul Normal 0.0-0.1 [facility] Comment on above: Performed By: #### I NFLUAB #### [facility] [address] [place] [address] Dr. Ling Cifuentes Basophils/100 WBC (Bld) 0.2 % Normal 0.2-2.0 [facility] Comment on above: Performed By: #### I NFLUAB #### [facility] [address] [place] [address] Dr. Ling Cifuentes EO # 0.0 103/ul Normal 0.0-0.7 [facility] Comment on above: Performed By: #### I NFLUAB #### [facility] [address] [place] [address] Dr. Ling Cifuentes Eosinophils/100 WBC (Bld) 0.6 % Critically low 0.9-7.0 [facility] Comment on above: Performed By: #### I NFLUAB #### [facility] [address] [place] [address] Dr. Ling Cifuentes Erythrocyte distribution width (RBC) [Ratio] 14.1 % Normal 11.0-15.0 [facility] Comment on above: Performed By: #### I NFLUAB #### [facility] [address] [place] [address] Dr. Ling Cifuentes Hematocrit (Bld) [Volume fraction] 39.8 % Critically low 42.0-54.0 [facility] Comment on above: Performed By: #### I NFLUAB #### [facility] [address] [place] [address] Dr. Ling Cifuentes Hemoglobin (Bld) [Mass/Vol] 13.4 g/dL Critically low 14.0-18.0 [facility] Comment on above: Performed By: #### I NFLUAB #### [facility] [address] [place] [address] Dr. Ling Cifuentes IG # 0.01 10e3/ul Normal 0.00-0.03 [facility] Comment on above: Performed By: #### I NFLUAB #### [facility] [address] [place] [address] Dr. Ling Cifuentes IG % 0.2 % Normal 0.0-0.5 [facility] Comment on above: Performed By: #### I NFLUAB #### [facility] [address] [place] [address] Dr. Ling Cifuentes LYMPH # 1.3 103/ul Normal 1.2-3.8 [facility] Comment on above: Performed By: #### I NFLUAB #### [facility] [address] [address] [address] Ling Cifuentes Lymphocytes/100 WBC (Bld) 27.2 % Normal 20.5-60.0 [facility] Comment on above: Performed By: #### I NFLUAB #### [facility] [address] [place] [address] Dr. Ling Cifuentes MANUAL DIFF REQ NO Normal [facility] Comment on above: Performed By: #### I NFLUAB #### [facility] [address] [place] [address] Dr. Ling Cifuentes MCH (RBC) [Entitic mass] 30.7 pg Normal 25.9-34.0 [facility] Comment on above: Performed By: #### I NFLUAB #### [facility] [address] [place] [address] Dr. Ling Cifuentes MCHC (RBC) [Mass/Vol] 33.7 g/dL Normal 29.9-35.2 [facility] Comment on above: Performed By: #### I NFLUAB #### [facility] [address] [place] [address] Dr. Ling Cifuentes MCV (RBC) [Entitic vol] 91.1 fL Normal 80.0-94.0 [facility] Comment on above: Performed By: #### I NFLUAB #### [facility] [address] [place] [address] Dr. Ling Cifuentes MONO # 0.5 103/ul Normal 0.3-0.8 [facility] Comment on above: Performed By: #### I NFLUAB #### [facility] [address] [place] [address] Dr. Ling Cifuentes Monocytes/100 WBC (Bld) 10.7 % Normal 1.7-12.0 [facility] Comment on above: Performed By: #### I NFLUAB #### [facility] [address] [place] [address] Dr. Ling Cifuentes NEUT # 2.9 103/ul Normal 1.4-6.5 [facility] Comment on above: Performed By: #### I NFLUAB #### [facility] [address] [address] [address] Ling Cifuentes Neutrophils/100 WBC (Bld) 61.1 % Normal 43.0-75.0 [facility] Comment on above: Performed By: #### I NFLUAB #### [facility] [address] [address] [address] Ling Cifuentes Platelet mean volume (Bld) [Entitic vol] 9.7 fL Normal 9.5-13.5 [facility] Comment on above: Performed By: #### I NFLUAB #### [facility] [address] [address] [address] Ling Cifuentes PLT 157 103/ul Normal 150-450 [facility] Comment on above: Performed By: #### I NFLUAB #### [facility] [address] [address] [address] Ling Cifuentes RBC 4.37 106/ul Critically low 4.70-6.10 [facility] Comment on above: Performed By: #### I NFLUAB #### [facility] [address] [address] [address] Ling Cifuentes WBC 4.8 103/ul Normal 4.0-11.0 [facility] Comment on above: Performed By: #### I NFLUAB #### [facility] [address] [place] [address] Dr. Ling Cifuentes [facility]on 01-03 SARS-CoV-2 (COVID-19) RNA JAYME+probe Ql (Unsp spec) Detected Critically abnormal NOT DETECTED [facility] Comment on above: Result Comment: This test is not yet approved or cleared by the [place] FDA. When there are no FDA-approved or cleared tests available, and other criteria are met, FDA can make tests available under an emergency access mechanism called an Emergency Use Authorization (EUA). The EUA for this test is supported by the [place] of Health and Human Service's declaration that [...] used). Performed By: #### C VDTB #### [facility] [address] [place] [address] Dr. Ling Cifuentes ER URINE PROFILEon 2 Bilirubin Ql (U) Negative Normal NEGATIVE [facility] Comment on above: Performed By: #### E RUR #### [facility] [address] [place] [address] Dr. Ling Cifuentes Clarity (U) CLEAR Normal CLEAR [facility] Comment on above: Performed By: #### E RUR #### [facility] [address] [place] [address] Dr. Ling Cifuentes Color (U) YELLOW Normal YELLOW [facility] Comment on above: Performed By: #### E RUR #### [facility] [address] [place] [address] Dr. Ling Cifuentes ERUAHD A micrscopic examination will be performed if indicated. Normal [facility] Comment on above: Performed By: #### E RUR #### [facility] [address] [place] [address] Dr. Ling Cifuentes Glucose Ql (U) Negative Normal NEGATIVE [facility] Comment on above: Performed By: #### E RUR #### [facility] [address] [place] [address] Dr. Ling Cifuentes Hemoglobin Ql (U) Negative Normal NEGATIVE [facility] Comment on above: Performed By: #### E RUR #### [facility] [address] [place] [address] Dr. Ling Cifuentes Ketones Ql (U) TRACE Abnormal NEGATIVE [facility] Comment on above: Performed By: #### E RUR #### [facility] [address] [place] [address] Dr. Ling Cifuentes LEUKOCYTES Negative Normal NEGATIVE [facility] Comment on above: Performed By: #### E RUR #### [facility] [address] [place] [address] Dr. Ling Cifuentes Nitrite Ql (U) Negative Normal NEGATIVE [facility] Comment on above: Performed By: #### E RUR #### [facility] [address] [place] [address] Dr. Ling Cifuentes pH (U) 5.5 [pH] Normal 5-9 [facility] Comment on above: Performed By: #### E RUR #### [facility] [address] [place] [address] Dr. Ling Cifuentes SPEC GRAVITY 1.025 Normal 1.005-<=1.025 [facility] Comment on above: Performed By: #### E RUR #### [facility] [address] [place] [address] Dr. Ling Cifuentes UA PROTEIN Negative Normal NEGATIVE/ TRACE [facility] Comment on above: Performed By: #### E RUR #### [facility] [address] [place] [address] Dr. Ling Cifuentes UR MICRO IND NOT INDICATED Normal [facility] Comment on above: Performed By: #### E RUR #### [facility] [address] [place] [address] Dr. Ling Cifuentes Urobilinogen Qn (U) 0.2 {Kranthi'U}/dL Normal 0.2 - 1. 0 [facility] Comment on above: Performed By: #### E RUR #### [facility] [address] [place] [address] Dr. Ling Cifuentes INFLUENZA A AND B AGon 01-23 INFLUANEGH SEE BELOW Normal [facility] Comment on above: Result Comment: Nega tive for Flu A protein angiten. Infection due to Flu A cannot be ruled out. Flu A angiten in the sample may be below the detection limit of the test. Performed By: #### I NFLUAB #### [facility] [address] [place] [address] Dr. Ling Cifuentes INFLUBNEGH SEE BELOW Normal [facility] Comment on above: Result Comment: Nega tive for Flu B protein antigen. Infection due to Flu B cannot be ruled out. Flu B antigen in the sample may be below the detection limit of the test. Performed By: #### I NFLUAB #### [facility] [address] [place] [address] Dr. Ling Cifeuntes INFLUENZA A AG Negative Normal NEGATIVE SEE COMMENT [facility] Comment on above: Performed By: #### I NFLUAB #### [facility] [address] [place] [address] Dr. Ling Cifuentes INFLUENZA B AG Negative Normal NEGATIVE SEE COMMENT [facility] Comment on above: Performed By: #### I NFLUAB #### [facility] [address] [place] [address] Dr. Ling Cifuentes INTERNAL CONTROLS Within Normal Limits Normal Within Normal Limits [facility] Comment on above: Performed By: #### I NFLUAB #### [facility] [address] [place] [address] Dr. Ling Cifuentes LACTATE/LACTIC ACIDon 2021 Lactate [Moles/Vol] 0.5 mmol/L Normal 0.4-1.9 [facility] Comment on above: Performed By: #### I NFLUAB #### [facility] [address] [place] [address] Dr. Ling Cifuentes LIPASEon 01-23-2022 Lipase [Catalytic activity/Vol] 91.0 U/L Normal 73.0-393.0 [facility] Comment on above: Performed By: #### C MP, TSH, HSTROPN, BNP, LIPA #### [facility] [address] [place] [address] Dr. Ling Cifuentes PROF 14(COMP METB)on 022 Albumin [Mass/Vol] 3.4 g/dL Normal 3.4-5.0 [facility] Comment on above: Performed By: #### C MP, TSH, HSTROPN, BNP, LIPA #### [facility] [address] [place] [address] Dr. Ling Cifuentes Albumin/Globulin [Mass ratio] 1.0 {ratio} Normal [facility] Comment on above: Performed By: #### C MP, TSH, HSTROPN, BNP, LIPA #### [facility] [address] [place] [address] Dr. Ling Cifuentes ALP [Catalytic activity/Vol] 58 U/L Normal 46-116 [facility] Comment on above: Performed By: #### C MP, TSH, HSTROPN, BNP, LIPA #### [facility] [address] [place] [address] Dr. Ling Cifuentes ALT [Catalytic activity/Vol] 22 U/L Normal 16-63 [facility] Comment on above: Performed By: #### C MP, TSH, HSTROPN, BNP, LIPA #### [facility] [address] [place] [address] Dr. Ling Cifuentes Anion gap [Moles/Vol] 12.8 mmol/L Normal [facility] Comment on above: Performed By: #### C MP, TSH, HSTROPN, BNP, LIPA #### [facility] [address] [place] [address] Dr. Ling Cifuentes AST [Catalytic activity/Vol] 18 U/L Normal 15-37 [facility] Comment on above: Performed By: #### C MP, TSH, HSTROPN, BNP, LIPA #### [facility] [address] [place] [address] Dr. Ling Cifuentes Bilirubin [Mass/Vol] 0.6 mg/dL Normal 0.2-1.0 [facility] Comment on above: Performed By: #### C MP, TSH, HSTROPN, BNP, LIPA #### [facility] [address] [place] [address] Dr. Ling Cifuentes Calcium [Mass/Vol] 8.4 mg/dL Critically low 8.5-10.1 [facility] Comment on above: Performed By: #### C MP, TSH, HSTROPN, BNP, LIPA #### [facility] [address] [place] [address] Dr. Ling Cifuentes Chloride [Moles/Vol] 100 mmol/L Normal 98-107 [facility] Comment on above: Performed By: #### C MP, TSH, HSTROPN, BNP, LIPA #### [facility] [address] [address] [address] Ling Cifuentes CO2 [Moles/Vol] 25.8 mmol/L Normal 21.0-32.0 [facility] Comment on above: Performed By: #### C MP, TSH, HSTROPN, BNP, LIPA #### [facility] [address] [place] [address] Dr. Ling Cifuentes Creatinine [Mass/Vol] 0.84 mg/dL Normal 0.70-1.30 [facility] Comment on above: Performed By: #### C MP, TSH, HSTROPN, BNP, LIPA #### [facility] [address] [place] [address] Dr. Ling Cifuentes EGFR-AF MOROCCAN >60 Normal >=60 [facility] Comment on above: Performed By: #### C MP, TSH, HSTROPN, BNP, LIPA #### [facility] [address] [place] [address] Dr. Ling Cifuentes EGFR-NON AF MOROCCAN >60 Normal >=60 [facility] Comment on above: Performed By: #### C MP, TSH, HSTROPN, BNP, LIPA #### [facility] [address] [place] [address] Dr. iLng Cifuentes Globulin (S) [Mass/Vol] 3.3 g/dL Normal [facility] Comment on above: Performed By: #### C MP, TSH, HSTROPN, BNP, LIPA #### [facility] [address] [place] [address] Dr. Ling Cifuentes Glucose [Mass/Vol] 100 mg/dL Normal 74-106 [facility] Comment on above: Performed By: #### C MP, TSH, HSTROPN, BNP, LIPA #### [facility] [address] [place] [address] Dr. Ling Cifuentes Potassium [Moles/Vol] 3.6 mmol/L Normal 3.5-5.1 [facility] Comment on above: Performed By: #### C MP, TSH, HSTROPN, BNP, LIPA #### [facility] [address] [address] [address] Ling Cifuentes Protein [Mass/Vol] 6.7 g/dL Normal 6.4-8.2 [facility] Comment on above: Performed By: #### C MP, TSH, HSTROPN, BNP, LIPA #### [facility] [address] [place] [address] Dr. Ling Cifuentes Sodium [Moles/Vol] 135 mmol/L Critically low 136-145 [facility] Comment on above: Performed By: #### C MP, TSH, HSTROPN, BNP, LIPA #### [facility] [address] [place] [address] Dr. Ling Cifuentes Urea nitrogen [Mass/Vol] 14.0 mg/dL Normal 7.0-18.0 [facility] Comment on above: Performed By: #### C MP, TSH, HSTROPN, BNP, LIPA #### [facility] [address] [place] [address] Dr. Ling Cifuentes Urea nitrogen/Creatinine [Mass ratio] 16.7 mg/mg Normal [facility] Comment on above: Performed By: #### C MP, TSH, HSTROPN, BNP, LIPA #### [facility] [address] [place] [address] Dr. Ling Cifuentes TROPONIN, HIGH SENSITIVITYon 01-23-2022 HSTROP 11.6 pg/mL Normal 4.0-76.1 [facility] Comment on above: Result Comment: CUT- OFF POINTS HAVE BEEN ESTABLISHED BASED ON THE FOURTH UNIVERSAL DEFINITIONS OF MYOCARDIAL INFARCTION. THE UPPER REFERENCE LIMIT (URL) OF TROPONIN, DEFINED THE 99TH PERCENTILE OF cTnI DISTRIBUTION IN A REFERENCE POPULATION, HAS BEEN CONFIRMED THE DECISION THRESHOLD FOR [place] DIAGNOSIS. Performed By: #### C MP, TSH, HSTROPN, BNP, LIPA #### [facility] [address] [place] [address] Dr. Ling Cifuentes TSHon 01-23-2022 TSH 0.870 uIU/mL Normal 0.358-3.740 [facility] Comment on above: Performed By: #### C MP, TSH, HSTROPN, BNP, LIPA #### [facility] [address] [address] [address] Ling Cifuentes XR ABD FLAT UP_PA [...] RENARD PORTILLO Date: 2022-01-23 17:11 Normal [facility] ANTI NEUTROPHIL CYTOPLASMIC AB (ANCA) PRon 12-20-2021 Antimyeloperoxidase (MPO) Abs <9.0 Normal 0.0-9.0 [facility] Comment on above: Result Comment: Perf ormed at: BN Performed By: #### I NFLUAB #### [facility] [address] [place] [address] Dr. Ling Cifuentes Antiproteinase 3 (AK-3) Abs <3.5 Normal 0.0-3.5 [facility] Comment on above: Result Comment: Perf ormed at: BN Performed By: #### I NFLUAB #### [facility] [address] [address] [address] Ling Cifuentes Atypical pANCA <1:20 Normal Neg:<1:20 [facility] Comment on above: Result Comment: The atypical pANCA pattern has been observed in a significant percentage of patients with ulcerative colitis, primary sclerosing cholangitis and autoimmune hepatitis. Performed at: CB Performed By: #### I NFLUAB #### [facility] [address] [address] [address] Ling Cifuentes Cytoplasmic (C-ANCA) <1:20 Normal Neg:<1:20 [facility] Comment on above: Result Comment: Perf ormed at: CB Performed By: #### I NFLUAB #### [facility] [address] [place] [address] Dr. Ling Cifuentes Perinuclear (P-ANCA) <1:20 Normal Neg:<1:20 [facility] Comment on above: Result Comment: The presence of positive fluorescence exhibiting P-ANCA or C-ANCA patterns alone is not specific for the diagnosis of Erasmo's Granulomatosis (WG) or microscopic polyangiitis. Decisions about treatment should not be based solely on ANCA IFA results. The International ANCA Group Consensus recommends follow up testing of positive sera with both AK-3 and MPO-ANCA enzyme immunoassays. As many as 5% serum samples are positive only by EIA. Ref. AM J Clin Pathol 1999;111:507-513. Performed at: CB Performed By: #### I NFLUAB #### [facility] [address] [place] [address] Dr. Ling Cifuentes PASCUAL EIA W/REFLEX 5 BIOMARKER Son 12-11-2021 PASCUAL Direct Negative Normal Negative [facility] Comment on above: Performed By: #### I NFLUAB #### [facility] [address] [place] [address] Dr. Ling Cifuentes RHEUMATOID FACTORon 12-12-19 22 RA Latex Turbid. <10.0 Normal <14.0 [facility] Comment on above: Performed By: #### R F #### [facility] [address] [place] [address] Dr. Ling Cifuentes VITAMIN B12on 12-11-2021 Cobalamin (Vitamin B12) [Mass/Vol] 378 pg/mL Normal 232-1245 [facility] Comment on above: Performed By: #### I NFLUAB #### [facility] [address] [place] [address] Dr. Ling Cifuentes CBC AUTO DIFFon 12-10-2021 BASO # 0.0 103/ul Normal 0.0-0.1 [facility] Comment on above: Performed By: #### C BC #### [facility] [address] [address] [address] Lign Cifuentes Basophils/100 WBC (Bld) 0.4 % Normal 0.2-2.0 [facility] Comment on above: Performed By: #### C BC #### [facility] [address] [address] [address] Ling Cifuentes EO # 0.1 103/ul Normal 0.0-0.7 [facility] Comment on above: Performed By: #### C BC #### [facility] [address] [place] [address] Dr. Ling Cifuentes Eosinophils/100 WBC (Bld) 0.8 % Critically low 0.9-7.0 [facility] Comment on above: Performed By: #### C BC #### [facility] [address] [place] [address] Dr. Ling Cifuentes Erythrocyte distribution width (RBC) [Ratio] 12.9 % Normal 11.0-15.0 [facility] Comment on above: Performed By: #### C BC #### [facility] [address] [place] [address] Dr. Ling Cifuentes Hematocrit (Bld) [Volume fraction] 46.2 % Normal 42.0-54.0 [facility] Comment on above: Performed By: #### C BC #### [facility] [address] [place] [address] Dr. Ling Cifuentes Hemoglobin (Bld) [Mass/Vol] 15.3 g/dL Normal 14.0-18.0 [facility] Comment on above: Performed By: #### C BC #### [facility] [address] [place] [address] Dr. Ling Cifuentes IG # 0.06 10e3/ul Critically high 0.00-0.03 [facility] Comment on above: Performed By: #### C BC #### [facility] [address] [place] [address] Dr. Ling Cifuentes IG % 0.6 % Critically high 0.0-0.5 [facility] Comment on above: Performed By: #### C BC #### [facility] [address] [place] [address] Dr. Ling Cifuentes LYMPH # 2.3 103/ul Normal 1.2-3.8 [facility] Comment on above: Performed By: #### C BC #### [facility] [address] [place] [address] Dr. Ling Cifuentes Lymphocytes/100 WBC (Bld) 21.3 % Normal 20.5-60.0 [facility] Comment on above: Performed By: #### C BC #### [facility] [address] [place] [address] Dr. Ling Cifuentes MANUAL DIFF REQ NO Normal [facility] Comment on above: Performed By: #### C BC #### [facility] [address] [place] [address] Dr. Ling Cifuentes MCH (RBC) [Entitic mass] 30.8 pg Normal 25.9-34.0 [facility] Comment on above: Performed By: #### C BC #### [facility] [address] [place] [address] Dr. Ling Cifuentes MCHC (RBC) [Mass/Vol] 33.1 g/dL Normal 29.9-35.2 [facility] Comment on above: Performed By: #### C BC #### [facility] [address] [place] [address] Dr. Ling Cifuentes MCV (RBC) [Entitic vol] 93.0 fL Normal 80.0-94.0 [facility] Comment on above: Performed By: #### C BC #### [facility] [address] [place] [address] Dr. Ling Cifuentes MONO # 0.8 103/ul Normal 0.3-0.8 [facility] Comment on above: Performed By: #### C BC #### [facility] [address] [place] [address] Dr. Ling Cifuentes Monocytes/100 WBC (Bld) 7.2 % Normal 1.7-12.0 [facility] Comment on above: Performed By: #### C BC #### [facility] [address] [place] [address] Dr. Ling Cifuentes NEUT # 7.4 103/ul Critically high 1.4-6.5 [facility] Comment on above: Performed By: #### C BC #### [facility] [address] [place] [address] Dr. Ling Cifuentes Neutrophils/100 WBC (Bld) 69.7 % Normal 43.0-75.0 [facility] Comment on above: Performed By: #### C BC #### [facility] [address] [place] [address] Dr. Ling Cifuentes Platelet mean volume (Bld) [Entitic vol] 8.6 fL Critically low 9.5-13.5 [facility] Comment on above: Performed By: #### C BC #### [facility] [address] [place] [address] Dr. Ling Cifuentes PLT 373 103/ul Normal 150-450 [facility] Comment on above: Performed By: #### C BC #### [facility] [address] [place] [address] Dr. Ling Cifuentes RBC 4.97 106/ul Normal 4.70-6.10 [facility] Comment on above: Performed By: #### C BC #### [facility] [address] [place] [address] Dr. Ling Cifuentes WBC 10.7 103/ul Normal 4.0-11.0 [facility] Comment on above: Performed By: #### C BC #### [facility] [address] [place] [address] Dr. Ling Cifuentes CRPon 12-10-2021 CRP 5.4 mg/dL Critically high <=1.0 [facility] Comment on above: Performed By: #### I NFLUAB #### [facility] [address] [place] [address] Dr. Ling Cifuentes PROF 14(COMP METB)on 022 Albumin [Mass/Vol] 3.6 g/dL Normal 3.4-5.0 [facility] Comment on above: Performed By: #### I NFLUAB #### [facility] [address] [address] [address] Ling Cifuentes Albumin/Globulin [Mass ratio] 0.9 {ratio} Normal [facility] Comment on above: Performed By: #### I NFLUAB #### [facility] [address] [address] [address] Ling Cifuentes ALP [Catalytic activity/Vol] 69 U/L Normal 46-116 [facility] Comment on above: Performed By: #### I NFLUAB #### [facility] [address] [address] [address] Ling Cifuentes ALT [Catalytic activity/Vol] 13 U/L Critically low 16-63 [facility] Comment on above: Performed By: #### I NFLUAB #### [facility] [address] [place] [address] Dr. Ling Cifuentes Anion gap [Moles/Vol] 12.2 mmol/L Normal [facility] Comment on above: Performed By: #### I NFLUAB #### [facility] [address] [place] [address] Dr. Ling Cifuentes AST [Catalytic activity/Vol] 11 U/L Critically low 15-37 [facility] Comment on above: Performed By: #### I NFLUAB #### [facility] [address] [place] [address] Dr. Ling Cifuentes Bilirubin [Mass/Vol] 0.8 mg/dL Normal 0.2-1.0 [facility] Comment on above: Performed By: #### I NFLUAB #### [facility] [address] [place] [address] Dr. Ling Cifuentes Calcium [Mass/Vol] 8.8 mg/dL Normal 8.5-10.1 [facility] Comment on above: Performed By: #### I NFLUAB #### [facility] [address] [place] [address] Dr. Ling Cifuentes Chloride [Moles/Vol] 99 mmol/L Normal 98-107 [facility] Comment on above: Performed By: #### I NFLUAB #### [facility] [address] [place] [address] Dr. Ling Cifuentes CO2 [Moles/Vol] 29.8 mmol/L Normal 21.0-32.0 [facility] Comment on above: Performed By: #### I NFLUAB #### [facility] [address] [address] [address] Ling Cifuentes Creatinine [Mass/Vol] 0.76 mg/dL Normal 0.70-1.30 [facility] Comment on above: Performed By: #### I NFLUAB #### [facility] [address] [address] [address] Ling Cifuentes EGFR-AF MOROCCAN >60 Normal >=60 [facility] Comment on above: Performed By: #### I NFLUAB #### [facility] [address] [place] [address] Dr. Ling Cifuentes EGFR-NON AF MOROCCAN >60 Normal >=60 [facility] Comment on above: Performed By: #### I NFLUAB #### [facility] [address] [address] [address] Ling Cifuentes Globulin (S) [Mass/Vol] 3.9 g/dL Normal T [facility] Comment on above: Performed By: #### I NFLUAB #### [facility] [address] [address] [address] Ling Cifuentes Glucose [Mass/Vol] 101 mg/dL Normal 74-106 [facility] Comment on above: Performed By: #### I NFLUAB #### [facility] [address] [address] [address] Ling Cifuentes Potassium [Moles/Vol] 4.0 mmol/L Normal 3.5-5.1 [facility] Comment on above: Performed By: #### I NFLUAB #### [facility] [address] [address] [address] Ling Cifuentes Protein [Mass/Vol] 7.5 g/dL Normal 6.4-8.2 [facility] Comment on above: Performed By: #### I NFLUAB #### [facility] [address] [address] [address] Ling Cifuentes Sodium [Moles/Vol] 137 mmol/L Normal 136-145 [facility] Comment on above: Performed By: #### I NFLUAB #### [facility] [address] [address] [address] Ling Cifuentes Urea nitrogen [Mass/Vol] 9.0 mg/dL Normal 7.0-18.0 [facility] Comment on above: Performed By: #### I NFLUAB #### [facility] [address] [place] [address] Dr. Ling Cifuentes Urea nitrogen/Creatinine [Mass ratio] 11.8 mg/mg Normal [facility] Comment on above: Performed By: #### I NFLUAB #### [facility] [address] [place] [address] Dr. Ling Cifuentes SED RATE [facility] 2021 SED RATE 51 mm/hr Critically high <=20 [facility] Comment on above: Performed By: #### I NFLUAB #### [facility] [address] [place] [address] Dr. Ling Cifuentes TSHon 12-10-2021 TSH 1.293 uIU/mL Normal 0.358-3.740 [facility] Comment on above: Performed By: #### I NFLUAB #### [facility] [address] [place] [address] Dr. Ling Cifuentes TSH RANGE SEE BELOW Normal [facility] Comment on above: Result Comment: <0.3 4 UIU/ml HYPERTHYROID 0.34-5.60 UIU/ml EUTHYROID >5.60 UIU/ml HYPOTHYROID Performed By: #### I NFLUAB #### [facility] [address] [place] [address] Dr. Ling Cifuentes Reminderson 11-06-2021 Reminders -- From: Theodora Martinez MA To: EU - Clinical; Sent: 07/17/2021 15:51:53 EST Show up: 10/02/2021 15:51:00 EST Subject: MRI In Spring Reminder Message MRI at [facility] Order will need resent for Precert Order faxed to [facility] Spoke to [facility] and MRI has not been approved yet patient is scheduled 10-31-21 @ 7:30am per [facility] Looked in clinisync no results yet. Pt canceled MRI of prostate on 10/23/21 stated from CS, and pt didn't want to reschedule [facility] Pre-Certification Formon Pre-Certification Form [id number] E9#1.00CD:127 [facility] Reminderson 07-13-2021 Reminders -- From: Angie Doe MA To: EU - Clinical; Sent: 06/22/2021 14:06:02 EST Show up: 07/02/2021 07:00:00 EST Subject: scheduling MRI prostate Due Date/Time: 07/04/2021 07:00:00 EST Reminder/Recall Order for Prostate MRI has been sent to [facility]. They will precert and call pt to schedule. Please make sure Dr Rizvi sees the results. Thanks!! no results yet Spoke to [facility] and was told they called Pt. on Jul 03 and Pt. told them to call him back to schedule sometime this week. Spoke to [facility] and was told Pt. has not returned their phone calls to schedule. PT called [facility] and told them he did not want to get the MRI he wanted to wait. [facility] Pre-Certification Formon Pre-Certification Form [id number] 80#1.00CD:127 [facility] Lab Reportson 06-25-2021 Lab Reports [id number] 412#1.00CD:127 [facility] Lab Reports [id number] 71#1.00CD:127 [facility] Physician Referralon 021 Physician Referral [id number] 178#1.00CD:127 Normal [facility] Patient Educationon 06-22-20 21 Patient [...] including vitamins, herbs, eye drops, creams, and jauy-szl-bpiewhk medicines. This also includes: ? Medicines to [...] 08/23/2005 Document Revised: 07/03/2018 Document Reviewed: 04/27/2018 [employer] Patient Education ? 2020 [employer] Normal [facility] PSA Diagnostic (Total Free)o n 06-12-2021 Prostate Spec Ag, Free 0.750 ng/mL Normal F [facility] Comment on above: Order Comment: Reaso n for Exam Elevated PSA Performed By: #### P SATF #### [facility] [address] [place] [address] PSA Total (Not a Screen) 5.790 ng/mL High 0.000-4.000 [facility] Comment on above: Order Comment: Reaso n for Exam Elevated PSA Performed By: #### P SATF #### [facility] [address] [place] [address] PSA,FREE% 12.0 % Normal [facility] Comment on above: Order Comment: Reaso [...] 10% 20% >25 5% 9% PERFORMED BY: [place] [address] PATHOLOGIST YEAST CAKE CUTTER LUDIN FITZGERALD M.D. Performed By: #### P SATF #### [address] Complete Pulmonary Functiono n 05-30-2021 Complete Pulmonary Function [facility] Main Kevin [address] [place] [address] Pulmonary Function Signed Patient: Effie Chambers MR#: [id number] 8 : 1960 Acct:[id number] Age/Sex: 61 / M ADM Date: 05/25/21 Loc: [facility] Dr: Florentin Valiente DO Ordering Provider: [...] FEV1/FVC ratio was markedly reduced to 37%. SUQ08-83% was profoundly reduced to 0.42 L/sec, which [...] MD 05/30/21 0836 Signed By: 05/31/21 0832 Normal [facility] Lipid Panelon 05-25-2021 Cholesterol [Mass/Vol] 246 mg/dL High 140-200 [facility] Comment on above: Order Comment: Reaso n for Exam Screening for cardiovascular condition Result Comment: Chol less than 200 mg/dl low risk Chol 201-239 mg/dl borderline risk Chol 240 mg/dl and greater high risk Performed By: #### P SAS, LIPID #### [address] Cholesterol in HDL [Mass/Vol] 44 mg/dL Normal 29-71 [facility] Comment on above: Order Comment: Reaso n for Exam Screening for cardiovascular condition Result Comment: HDL CHOL ATP-III CLASSIFICATION Cardiovascular Risk HDL > or equal to 60 mg/dL LOW HDL < 40 mg/dL HIGH Performed By: #### P SAS, LIPID #### [facility] [address] Cholesterol.total/Sarai sterol in HDL [Mass ratio] 5.6 {ratio} Normal <5.0 [facility] Comment on above: Order Comment: Reaso n for Exam Screening for cardiovascular condition Result Comment: PERF ORMED BY: [place] [address] PATHOLOGIST YEAST CAKE CUTTER LUDIN FITZGERALD M.D. Performed By: #### P SAS, LIPID #### [facility] [address] LDL Cholesterol,Calculated 186 mg/dL High 0-100 [facility] Comment on above: Order Comment: Reaso n for Exam Screening for cardiovascular condition Result Comment: LDL ATP III CLASSIFICATION LDL less than 100 mg/dL Optimal LDL 100-129 mg/dL Near or above optimal LDL 130-159 mg/dL Borderline high LDL 160-189 mg/dL High LDL greater than 189 mg/dL Very high Performed By: #### P SAS, LIPID #### [facility] [address] Triglyceride w/Reflex 81 mg/dL Normal 35-149 [facility] Comment on above: Order Comment: Reaso n for Exam Screening for cardiovascular condition Result Comment: TRIG ATP III CLASSIFICATION TRIG less than 150 mg/dL Normal TRIG 150-199 mg/dL Borderline high TRIG 200-500 mg/dL High TRIG greater than 500 mg/dL Very high Standard traceable to the Center for Disease Conrtrol and Prevention (CDC) test method. Performed By: #### P SAS, LIPID #### [facility] [address] VLDL CHOLESTEROL 16 mg/dL Normal [facility] Comment on above: Order Comment: Reaso n for Exam Screening for cardiovascular condition Performed By: #### P SAS, LIPID #### [facility] [address] PSA Screen (Yearly Only)on PSA Screen (Yearly Only) 6.170 ng/mL High 0.000-4.000 [facility] Comment on above: Order Comment: Reaso n for Exam Screening for prostate cancer Is patient <50 yrs? Medicare does not pay <50.: Y What is the date of the last PSA Screen?: [id number] Is Medicare the insurance?: Y Did you verify eligibility (Dx Time) check TestViewGp: YES TO ALL Result Comment: PERF ORMED BY: [place] [id number] PATHOLOGIST YEAST CAKE CUTTER LUIDN FITZGERALD M.D. Performed By: #### P SAS, LIPID #### [facility] [address] [place] [address] [place] Outside Recordson 02-14-2020 Outside Records [id number] [facility] [id number] 09#[facility] Outside Records [id number] 37#[facility].00[facility] Outside Recordson 10-08-2019 Outside Records [id number]#[facility] Outside Records [id number]#1.00[facility] Coding Queryon 09-30-2019 Coding Query [id number] 66#1.00[facility] Coding Summaryon 09-30-2019 Coding Summary CODING DATE: 09/30/2019 [facility] STATUS: Home PAYOR: Medicare APC DESCRIPTION [...] Orly Yanez Date Saved: 09/30/2019 04:47 pm [facility] Release of Informationon Release of Information [id number] 55#1.00[facility] Rad - Bone Density Reporton 09-29-2019 Rad - Bone Density Report [id number] 85#1.00[facility] BD Bone Density DEXA Studyon 09-28-2019 BD [...] Mitul Cuellar MD 09/28/19 4:06 pm [facility] Outside Record[facility] 09-27-2019 Outside Records [id number]-2019 Ambulatory Patient Summary [facility] [address] [facility], [address] Visit Summary For EFFIE CHAMBERS We would like to thank you for allowing us to assist you with your healthcare needs. Our entire staff strives to provide an excellent experience for our patients and their families. The following includes information regarding your visit. Age: 59 years Sex: MALE : 1960 Address: [address] [place] [address], [address] Home: Work: -- Mobile: -- Primary Care Provider: JESSICA GUZMÁN DO Race: Declined Ethnicity: Not or Language: [place] Health Plan: 1?MEDICARE, 2?MEDICAID [place] Reason for [...] alcohol and/or drug addiction problems; contact the [facility] 24/02 Crisis Hotline -Text 4HOPE to 598915. Follow-Up Information Referral Orders BD Bone Density DEXA Study 09/20/19 Routine, See Dx, Allow Modification Per Radiologist, Transport Mode: Walk, History of vertebral fracture, Order for future visit Future Appointments [facility] Phone: -- Fax: -- Appt. [...] documented Home Medications No reported medications documented [facility] Patient Handouton 09-20-2019 Patient Handout [facility] Outside Recordson 08-25-2019 Outside Records [id number] [facility] Ambulatory Patient Summaryon 08-19-2019 Ambulatory Patient Summary [facility] [address] Visit Summary For EFFIE CHAMBERS We would like to thank you for allowing us to assist you with your healthcare needs. Our entire staff strives to provide an excellent experience for our patients and their families. The following includes information regarding your visit. Age: 59 years Sex: MALE : 1960 Address: [address] [place] [address], [facility] Home: Work: -- Mobile: -- Primary Care Provider: JESSICA GUZMÁN Race: Declined Ethnicity: Not or Language: [place] Health Plan: 1?MEDICARE, 2?MEDICAID [place] Reason for [...] alcohol and/or drug addiction problems; contact the [facility] 24/02 Crisis Hotline -Text 4HLCG hj 685913. Follow-Up Information Referral Orders Future Appointments No [...] documented Home Medications No reported medications documented [facility] Patient Handouton 08-19-2019 Patient Handout [facility] Vital Signs Date Time Vital Sign Value Performing Clinician Facility 06-22-2024 09:29-0500 Body height 182.9 cm Theodora Stephen MANAGER AREA Work Phone: [facility] 06-22-2024 09:29-0500 Body mass index (BMI) [Ratio] 31.68 kg/m2 Theodora Stephen MANAGER AREA Work Phone: [facility] 06-22-2024 09:29-0500 Body temperature 98.6 [degF] Theodora Mitchell MANAGER AREA Work Phone: [facility] 06-22-2024 09:29-0500 Body weight 105.96 kg Theodora Mitchell MANAGER AREA Work Phone: [facility] 06-22-2024 09:29-0500 Diastolic blood pressure 84 mm[Hg] Theodora Mitchell MANAGER AREA Work Phone: [facility] 06-22-2024 09:29-0500 Heart rate 67 /min Theodora Mitchell MANAGER AREA Work Phone: [facility] 06-22-2024 09:29-0500 Respiratory rate 22 /min Theodora Mitchell MANAGER AREA Work Phone: [facility] 06-22-2024 09:29-0500 SaO2% (BldA) [Mass fraction] 97 % Theodora Canoz MANAGER AREA Work Phone: [facility] 06-22-2024 09:29-0500 Systolic blood pressure 112 mm[Hg] Theodoratoña Davisholz MANAGER AREA Work Phone: [facility] 05-24-2024 18:18-0400 Body height 182.9 cm Theodoratoña Canoz MANAGER AREA Work Phone: [facility] 05-24-2024 18:18-0400 Body mass index (BMI) [Ratio] 31.79 kg/m2 Theodoratoña Canoz MANAGER AREA Work Phone: [facility] 05-24-2024 18:18-0400 Body temperature 98.49 [degF] Theodoratoña Canoz MANAGER AREA Work Phone: [facility] 05-24-2024 18:18-0400 Body weight 106.32 kg Theodoratoña Davisholz MANAGER AREA Work Phone: [facility] 05-24-2024 18:18-0400 Diastolic blood pressure 78 mm[Hg] Theodora Canoz MANAGER AREA Work Phone: [facility] 05-24-2024 18:18-0400 Heart rate 74 /min Theodoratoña Canoz MANAGER AREA Work Phone: [facility] 05-24-2024 18:18-0400 Respiratory rate 21 /min Theodora Ryanholz MANAGER AREA Work Phone: [facility] 05-24-2024 18:18-0400 SaO2% (BldA) [Mass fraction] 94 % Theodora Ryanholz MANAGER AREA Work Phone: [facility] 05-24-2024 18:18-0400 Systolic blood pressure 122 mm[Hg] Theodora Ryanholz MANAGER AREA Work Phone: [facility] 03-30-2024 09:50-0400 Body height 182.9 cm Theodora Aichholz MANAGER AREA Work Phone: [facility] 03-30-2024 09:50-0400 Body mass index (BMI) [Ratio] 31.74 kg/m2 Theodora Aichholz MANAGER AREA Work Phone: [facility] 03-30-2024 09:50-0400 Body temperature 98.6 [degF] Theodora Aichholz MANAGER AREA Work Phone: [facility] 03-30-2024 09:50-0400 Body weight 106.14 kg Theodora Aichholz MANAGER AREA Work Phone: [facility] 03-30-2024 09:50-0400 Diastolic blood pressure 90 mm[Hg] Theodora Aichholz MANAGER AREA Work Phone: [facility] 03-30-2024 09:50-0400 Heart rate 62 /min Theodora Aichholz MANAGER AREA Work Phone: [facility] 03-30-2024 09:50-0400 Respiratory rate 19 /min Theodora Aichholz MANAGER AREA Work Phone: [facility] 03-30-2024 09:50-0400 SaO2% (BldA) [Mass fraction] 98 % Theodora Aichholz MANAGER AREA Work Phone: [facility] 03-30-2024 09:50-0400 Systolic blood pressure 122 mm[Hg] Theodora Aichholz MANAGER AREA Work Phone: [facility] 06-19-2021 09:00-0500 Body height 183.52 cm Florentin Valiente Other [facility] Other 06-19-2021 09:00-0500 Body mass index (BMI) [Ratio] 28.01 kg/m2 Florentin Valiente Other [facility] Other 06-19-2021 09:00-0500 Body weight 94.35 kg Florentin Valiente Other [facility] Other 06-19-2021 09:00-0500 Diastolic blood pressure 86 mm[Hg] Florentin Valiente Other [facility] Other 06-19-2021 09:00-0500 Respiratory rate 18 /min Florentin Valiente Other [facility] Other 06-19-2021 09:00-0500 SaO2% (BldA) [Mass fraction] 98 % Florentin Valiente Other [facility] Other 06-19-2021 09:00-0500 Systolic blood pressure 144 mm[Hg] Florentin Valiente Other [facility] Other Encounters Encounter Date Encounter Type Care Provider Facility Start: 06-22-2024 End: 06-22-2024 Bamboo flowsheet Theodora Mitchell MANAGER AREA Work Phone: [facility] Start: 06-22-2024 End: 06-22-2024 Bamboo flowsheet Theodora Mitchell MANAGER AREA Work Phone: [facility] Start: 06-22-2024 End: 06-22-2024 Office outpatient visit 25 minutes Theodora Mitchell MANAGER AREA Work Phone: [facility] Comment on above: COPD mixed type (CMS /HCC) (Primary Dx); Obesity (BMI 30-39.9); BMI 29.0-29.9,adult; Tobacco use; Chronic pain syndrome Start: 06-22-2024 End: 06-22-2024 ambulatory THEODORA STEPHEN Not Available Start: 05-24-2024 End: 05-24-2024 Office outpatient visit 25 minutes Theodora Mitchell MANAGER AREA Work Phone: [facility] Comment on above: COPD mixed type (CMS /HCC) (Primary Dx); Tobacco use Start: 05-24-2024 End: 05-24-2024 ambulatory THEODORA AICHHOLZ Not Available Start: 05-24-2024 End: 05-24-2024 Bamboo flowsheet Theodora Aichholz MANAGER AREA Work Phone: [facility] Start: 05-24-2024 End: 05-24-2024 Bamboo flowsheet Theodora Aichholz MANAGER AREA Work Phone: [facility] Start: 03-30-2024 End: 03-30-2024 Bamboo flowsheet Theodora Aichholz MANAGER AREA Work Phone: [facility] Start: 03-30-2024 End: 03-30-2024 Bamboo flowsheet Theodora Aichholz MANAGER AREA Work Phone: [facility] Start: 03-30-2024 End: 03-30-2024 ambulatory THEODORA AICHHOLZ Not Available Start: 03-30-2024 End: 03-30-2024 Office outpatient visit 25 minutes Theodora Aichholz MANAGER AREA Work Phone: [facility] Comment on above: Chronic pain syndrom e (Primary Dx); Tobacco use; COPD mixed type (CMS/HCC); Obesity (BMI 30-39.9) Start: 01-21-2024 End: 01-21-2024 ambulatory THEODORA AICHHOLZ Not Available Start: 12-11-2023 End: 12-11-2023 ambulatory [facility] Start: 12-01-2023 Patient encounter procedure Theodora Aichholz MANAGER AREA Work Phone: [facility] Start: 12-01-2023 End: 12-01-2023 ambulatory THEODORA AICHHOLZ [...] Facility:[facility] Start: 06-20-2021 End: 06-20-2021 ambulatory Florentin Quinonesahan Other [facility] Other Start: 06-20-2021 Telephone encounter Florentin Rocco [facility] Start: 06-19-2021 End: 06-19-2021 ambulatory Florentin Quinonesahan Other [facility] Other Start: 06-19-2021 Office outpatient visit 25 minutes Florentin Valiente [facility] Plan of Treatment Date Care Activity Detail Author Start: 11-30-2024 Medicare Annual Well ness (AWV) Medicare Annual Wellness (AWV) [facility] Start: 10-28-2024 Screening for malign ant neoplasm of colon Colorectal Cancer Screening [facility] Comment on above: Postponed from 02/01 (Patient Refused) Start: 09-22-2024 End: 09-22-2024 Patient encounter procedure 09/22/2024 9:00 AM EST [facility] [address] [place] [address] Theodora Mitchell NP [address] [place] [phone] [facility] Start: 07-14-2024 End: 07-14-2024 Patient encounter procedure 07/14/2024 9:40 AM EST [facility] [address] [place] [address] Theodora Mitchell, BETHANY [address] [place] [id number] [facility] Start: 06-22-2024 End: 06-22-2024 Patient encounter procedure [facility] Comment on above: COPD mixed type (CMS /HCC) (Primary Dx); Obesity (BMI 30-39.9); BMI 29.0-29.9,adult; Tobacco use Start: 05-24-2024 End: 05-24-2024 Patient encounter procedure 05/24/2024 6:30 PM EDT Office Visit [facility] [address] [place] [phone] Theodora Mitchell, BETHANY [address] [place] [address] Arrived [facility] Comment on above: Arrived Start: 1960 Screening for malign ant neoplasm of colon [facility] Immunizations Immunization Date Immunization Notes Care Provider Fa [facility] 04-06-1999 TD(adult) unspecifie d formulation Theodora Mitchell NP Work Phone: [facility] Payers Date Payer Category Payer Medicare [employer] MEDICARE ADVANTAGE YUAN MEDICARE ADVANTAGE [id number] 2020-Present [address] [place] [address] [id number] 2020 Medicare (Managed Care) [facility] ADVANTAGE [id number] 2017 Medicaid [id number] 1959 Medicaid [id number] 1959 Unknown [id number] 1960 Unknown [id number] [id number]. 593 1960 Unknown [id number] 2.16.840.1.206421.3.579.2. 593 1960 Unknown [id number] 2.16.840.1.657676.3.579.2. 593 1960 Unknown [id number] 2.16.840.1.726304.3.579.2. 1286 1960 Unknown [id number] 2.16.840.1.369133.3.579.2. 1259 1960 Unknown [id number] 2.16.840.1.280210.3.579.2. 1259 1960 Unknown [id number] 2.16.840.1.686383.3.579.2. 1259 1960 Unknown [id number] 2.16.840.1.348031.3.579.2. 1259 1960 Unknown [id number] 2.16.840.1.554647.3.579.2. 1259 1960 Unknown [id number] 2.16.840.1.471832.3.579.2. 1259 1960 Unknown [id number] 2.16.840.1.420074.3.579.2. 1259 1960 Unknown [id number] 2.16.840.1.205244.3.579.2. 1259 Medicare [id number] Social History Date Type Detail Facility Sex Assigned At [facility] Other Start: 12-24-2023 Tobacco smoking stat [facility] Ex-smoker [facility] End: 12-16-2023 History of tobacco use Current smoker [facility] End: 12-16-2023 History of tobacco use Cigarette Smoker [facility] Start: 12-24-2023 Tobacco use and exposure Smoke less tobacco non-user [facility] Start: 03-30-2024 End: 05-24-2024 Alcoholic beverage intake Lifetime non-drinker (finding) [facility] Start: 09-24-2023 End: 09-25-2023 History of Social function [facility] Start: 09-24-2023 End: 09-25-2023 Humiliation, Afraid, Rape, and Kick questionnaire [HARK] [facility] Within the last year , have you been afraid of your partner or ex-partner? No [facility] Are you now , , , , never or living with a partner? [facility] How often to you hav e a drink containing alcohol? Monthly or less [facility] How many standard dr inks containing alcohol do you have on a typical day? 1 or 2 [facility] How often do you hav e 6 or more drinks on 1 occasion? Never [facility] How hard is it for y ou to pay for the very basics like food, housing, medical care, and heating Not very hard [facility] Do you feel stress - tense, restless, nervous, or anxious, or unable to sleep at night because your mind is troubled all the time - these days [OSQ] Not at all [facility] (I/We) worried wheth er (my/our) food would run out before (I/we) got money to buy more. Never true [facility] In the past 12 month s, has lack of transportation kept you from medical appointments or from getting medications? No [facility] Start: 09-22-2023 Alcohol Comment caffine: 2cups daily [facility] Start: 1960 Sex assigned at Not on file [facility] NEGATED: Highlighted rowStart: NINF History of tobacco use Passive smoker [facility] Clinical Notes 06-22-2021 to 06-22-2024 Theodora Mitchell NP - 06/22/2024 10:01 AM Jd Mitchell NP - 06/22/2024 9:20 AM Jd Mitchell NP - 06/22/2024 6:22 AM Jd Mitchell NP - 06/22/2024 6:22 AM ESTPatient Instructions Note Date & Type Note Facility 06-22-2024 History of Present illness Narrative Associated Problem(s): Chronic pain syndrome Cold makes it worse, uses THC to help too Does not take muscle relaxers/NSAIDs no help No opioids used to take in the past, Declines going back to pain mgmt Effie Chambers is a 64 y.o. male presents with chief complaint of COPD, Shortness of Breath, Back Pain, and Neck Pain HPI: Last visit trialed wellbutrin for smoking cessation, stopped it felt out of it, and is back to smoking, approx 1ppd they are light cigs. Shortness of Breath This is a chronic problem. The current episode started more than 1 year ago. The problem occurs constantly. The problem has been gradually improving. Associated symptoms include ear pain, leg pain, neck pain, rhinorrhea and sputum production (green). Pertinent negatives include no abdominal pain, chest pain, fever, headaches, hemoptysis, leg swelling, rash, sore throat or vomiting. The symptoms are aggravated by any activity. The patient has no known risk factors for DVT/PE. Treatments tried: ICS/LABA/LAMA. The treatment provided significant relief. His past medical history is significant for COPD. Back Pain This is a chronic problem. The current episode started more than 1 year ago. The problem occurs constantly. The problem has been waxing and waning since onset. The pain is present in the lumbar spine. The pain is at a severity of 10/10 (45/10). The pain is severe. The symptoms are aggravated by bending, sitting and twisting. Stiffness is present All day. Associated symptoms include leg pain and weakness (left leg at times). Pertinent negatives include no abdominal pain, bladder incontinence, bowel incontinence, chest pain, fever, headaches, numbness, paresis, paresthesias (bilat feet constant) or tingling. Treatments tried: multiple treatments over the past. Neck Pain This is a chronic problem. The current episode started more than 1 year ago. The problem occurs daily. The problem has been waxing and waning. The pain is present in the left side, midline and right side. The quality of the pain is described as aching (sharp at times). The symptoms are aggravated by twisting and position. Associated symptoms include leg pain and weakness (left leg at times). Pertinent negatives include no chest pain, fever, headaches, numbness, paresis, tingling or trouble swallowing. Treatments tried: multiple over the years. SUBJECTIVE: MEDICATIONS: Current Outpatient Medications Medication Instructions albuterol HFA 90 mcg/act inhaler 2 puffs, Inhalation, Every 6 hours PRN Ciclopirox 1 % shampoo Lather on wet hair, leave on 5 min, rinse 2-3 x week, 30 day supply Miuophtuskp-Huxesxndo-Puogvp (Trelegy Ellipta) 100-62.5-25 MCG/ACT aerosol powder 1 puff, Inhalation, Daily, Rinse mouth after use ketoconazole (NIZOral) 2 % shampoo lather onto face and scalp, leave on 5 minutes then rinse topically 3-5 times weekly as needed for 30 day(s) metroNIDAZOLE (Metrogel) 0.75 % gel Apply topically ALLERGIES: Allergies Allergen Reactions Aspirin Swelling Codeine Other and Itching Ibuprofen GI intolerance Other Nausea And Vomiting Cortisone Anxiety, Other and Dizziness REVIEW OF SYMPTOMS: Review of Systems Constitutional: Negative. Negative for activity change, appetite change, chills, fatigue, fever and unexpected weight change. HENT: Positive for ear pain and rhinorrhea. Negative for congestion, sinus pressure, sore throat and trouble swallowing. Eyes: Negative. Negative for pain, discharge and visual disturbance. Respiratory: Positive for cough, sputum production (green) and shortness of breath. Negative for hemoptysis and chest tightness. Cardiovascular: Negative. Negative for chest pain, palpitations and leg swelling. Gastrointestinal: Negative. Negative for abdominal pain, bowel incontinence, constipation, diarrhea, nausea and vomiting. Genitourinary: Negative. Negative for bladder incontinence, decreased urine volume, flank pain and hematuria. Musculoskeletal: Positive for back pain and neck pain. Negative for arthralgias, joint swelling and myalgias. Skin: Negative for color change, rash and wound. Neurological: Positive for weakness (left leg at times). Negative for dizziness, tingling, tremors, numbness, headaches and paresthesias (bilat feet constant). Psychiatric/Behavioral: Negative. Negative for agitation, hallucinations, sleep disturbance and suicidal ideas. The patient is not nervous/anxious. Hematological: Negative. Negative for adenopathy. Does not bruise/bleed easily. Endocrine: Negative. Negative for polydipsia, polyphagia and polyuria. Allergic/Immunologic: Negative. Negative for environmental allergies. 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 OBJECTIVE: Visit Vitals BP 112/84 (BP Location: Left arm, Patient Position: Sitting, BP Cuff Size: Adult long) Pulse 67 Temp 98.6 F (Temporal) Resp 22 Ht 6' Wt 233 lb 9.6 oz SpO2 97% BMI 31.68 kg/m Smoking Status Former BSA 2.32 m Physical Exam Vitals and nursing note reviewed. Constitutional: Appearance: Normal appearance. HENT: Head: Normocephalic. Right Ear: External ear normal. Left Ear: External ear normal. Nose: Nose normal. Mouth/Throat: Mouth: Mucous membranes are moist. Pharynx: Oropharynx is clear. Eyes: Extraocular Movements: Extraocular movements intact. Conjunctiva/sclera: Conjunctivae normal. Neck: Vascular: No carotid bruit. Cardiovascular: Rate and Rhythm: Normal rate and regular rhythm. Pulses: Normal pulses. Heart sounds: Normal heart sounds. Pulmonary: Effort: Pulmonary effort is normal. Breath sounds: Normal breath sounds. Comments: diminished Abdominal: General: Bowel sounds are normal. Palpations: Abdomen is soft. Musculoskeletal: Cervical back: Neck supple. Right lower leg: No edema. Left lower leg: No edema. Comments: Decreased ROM lumbar spine and cervical spine +tightness to trap region bilat Skin: General: Skin is warm and dry. Capillary Refill: Capillary refill takes 2 to 3 seconds. Neurological: General: No focal deficit present. Mental Status: He is alert. Psychiatric: Mood and Affect: Mood normal. Behavior: Behavior normal. Thought Content: Thought content normal. Judgment: Judgment normal. ASSESSMENT AND PLAN: No follow-ups on file. Problem List Items Addressed This Visit RESOLVED: BMI 29.0-29.9,adult Tobacco use Started on buproprion at last visit: did not tolerate, has done accupuncture The patient has been advised of the risks of continued smoking: stroke, [place], all forms of cancer, lung disease, and . Options for quitting smoking include: cold turkey, hypnosis, acupuncture, nicotine replacement meds (gum, lozenges, and patches), Buproprion, and Varenicline. At this time pt is encouraged to evaluate their goals for wanting to quit smoking, and reach out to provider when ready to start this process COPD mixed type (CMS/HCC) - Primary Trelegy continue with do through PAP Needs to quit smoking, cont with pulmonary Obesity (BMI 30-39.9) Discussed with patient their BMI (actual, verses recommended). We have also discussed lifestyle modifications: attempts to perform physical activity as chronic conditions allow, also to monitor dietary intake: increasing protein/fruits/veggies and lowering carb intake (unless contraindicated). Limit sodas, juices, and sugary drinks. Chronic pain syndrome Cold makes it worse, uses THC to help too Does not take muscle relaxers/NSAIDs no help No opioids used to take in the past, Declines going back to pain mgmt Associated Problem(s): COPD mixed type (CMS/HCC) Trelegy continue with do through PAP Needs to quit smoking, cont with pulmonary Trelegy 200, Lot NC5K, exp 08/29 #2 samples Associated Problem(s): Tobacco use Started on buproprion at last visit: did not tolerate, has done accupuncture The patient has been advised of the risks of continued smoking: stroke, [place], all forms of cancer, lung disease, and . Options for quitting smoking include: cold turkey, hypnosis, acupuncture, nicotine replacement meds (gum, lozenges, and patches), Buproprion, and Varenicline. At this time pt is encouraged to evaluate their goals for wanting to quit smoking, and reach out to provider when ready to start this process Associated Problem(s): Obesity (BMI 30-39.9) Discussed with patient their BMI (actual, verses recommended). We have also discussed lifestyle modifications: attempts to perform physical activity as chronic conditions allow, also to monitor dietary intake: increasing protein/fruits/veggies and lowering carb intake (unless contraindicated). Limit sodas, juices, and sugary drinks. documented in this encounter [facility] 06-22-2024 Instructions Theodora Mitchell NP - 06/22/2024 9:20 AM EST I will complete Pt assistance form for trelegy Continue with dr chamberlain for lungs as well For chronic pain if you change your mind I will send to Pain Management documented in this encounter [facility] 05-24-2024 History of Present illness Narrative Associated Problem(s): Tobacco use Will trial buproprion SR Advised of what it is, how it works, and how to take it If worsening in depression contact office Otherwise fu in 4 weeks Associated Problem(s): COPD mixed type (CMS/HCC) Samples of trelegy 200mg given, will do PA form for 100mg Lot: NC5K, exp 08/29 Images from the original note were not included. Effie Chambers is a 64 y.o. male presents with chief complaint of No chief complaint on file. HPI: Here for recheck Working hard at smoking cessation, Patches: suicidal thoughts once going from 14 to 7mg Last week went had laser treatment, by the 5th day started smoking, aggitation occ SI Really wants to quit, open to ideas Insurance denied approval of trelegy, what can we do next it really helped SUBJECTIVE: MEDICATIONS: Current Outpatient Medications Medication Instructions albuterol HFA 90 mcg/act inhaler 2 puffs, Inhalation, Every 6 hours PRN Ciclopirox 1 % shampoo Lather on wet hair, leave on 5 min, rinse 2-3 x week, 30 day supply Mxilkzsmfxh-Vezecjehb-Wxrjtz (Trelegy Ellipta) 100-62.5-25 MCG/ACT aerosol powder 1 puff, Inhalation, Daily, Rinse mouth after use ketoconazole (NIZOral) 2 % shampoo lather onto face and scalp, leave on 5 minutes then rinse topically 3-5 times weekly as needed for 30 day(s) metroNIDAZOLE (Metrogel) 0.75 % gel Apply topically ALLERGIES: Allergies Allergen Reactions Aspirin Swelling Codeine Other and Itching Ibuprofen GI intolerance Other Nausea And Vomiting Cortisone Anxiety, Other and Dizziness REVIEW OF SYMPTOMS: Review of Systems Constitutional: Negative for activity change, appetite change and unexpected weight change. HENT: Negative for ear pain, nosebleeds, sneezing, trouble swallowing and voice change. Eyes: Negative for pain, discharge and visual disturbance. Respiratory: Positive for cough and shortness of breath. Negative for apnea, chest tightness and wheezing. Cardiovascular: Negative for leg swelling. Gastrointestinal: Negative for abdominal distention, blood in stool, constipation and diarrhea. Genitourinary: Negative for decreased urine volume, difficulty urinating, dysuria and hematuria. Skin: Negative for color change. Neurological: Negative for dizziness, tremors and seizures. Psychiatric/Behavioral: Positive for suicidal ideas. Negative for agitation, decreased concentration, hallucinations and self-injury. The patient is not nervous/anxious. Hematological: Negative for adenopathy. Does not bruise/bleed easily. Endocrine: Negative for cold intolerance, heat intolerance, polydipsia and polyuria. Allergic/Immunologic: Negative for environmental allergies and food allergies. 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 OBJECTIVE: Visit Vitals BP 122/78 (BP Location: Left arm, Patient Position: Sitting, BP Cuff Size: Adult long) Pulse 74 Temp 98.5 F (Temporal) Resp 21 Ht 6' Wt 234 lb 6.4 oz SpO2 94% BMI 31.79 kg/m Smoking Status Former BSA 2.32 m Physical Exam Vitals and nursing note reviewed. Constitutional: Appearance: Normal appearance. HENT: Head: Normocephalic. Right Ear: External ear normal. Left Ear: External ear normal. Nose: Nose normal. Mouth/Throat: Mouth: Mucous membranes are moist. Pharynx: Oropharynx is clear. Eyes: Extraocular Movements: Extraocular movements intact. Conjunctiva/sclera: Conjunctivae normal. Cardiovascular: Rate and Rhythm: Normal rate and regular rhythm. Pulses: Normal pulses. Heart sounds: Normal heart sounds. Pulmonary: Effort: Pulmonary effort is normal. No respiratory distress. Breath sounds: Normal breath sounds. No wheezing or rales. Comments: Very diminished Abdominal: General: Bowel sounds are normal. Palpations: Abdomen is soft. Musculoskeletal: Cervical back: Neck supple. Right lower leg: No edema. Left lower leg: No edema. Lymphadenopathy: Cervical: No cervical adenopathy. Skin: General: Skin is warm and dry. Capillary Refill: Capillary refill takes 2 to 3 seconds. Neurological: General: No focal deficit present. Mental Status: He is alert. Psychiatric: Mood and Affect: Mood normal. Behavior: Behavior normal. Thought Content: Thought content normal. Judgment: Judgment normal. ASSESSMENT AND PLAN: No follow-ups on file. Problem List Items Addressed This Visit Tobacco use - Primary Will trial buproprion SR Advised of what it is, how it works, and how to take it If worsening in depression contact office Otherwise fu in 4 weeks Relevant Medications buPROPion SR (Wellbutrin SR) 150 MG 12 hr tablet COPD mixed type (CMS/HCC) Samples of trelegy 200mg given, will do PA form for 100mg Lot: NC5K, exp 1/26 documented in this encounter [facility] 05-24-2024 Instructions Theodora Mitchell NP - 05/24/2024 6:30 PM EDT Call office if worsening in suicidal thoughts, or aggitation Start buproprion 150mg 1 pill daily for 3 days, then increase to twice a day Complete pt assistance form for amandagy documented in this encounter [facility] 03-30-2024 History of Present illness Narrative Associated Problem(s): Chronic pain syndrome Offered pain mgmt, pt declines Offered deanne, elavil, duloxetine does not want to try these either Associated Problem(s): Tobacco use Recommend quitting smoking Associated Problem(s): COPD mixed type (CMS/HCC) Continue with pulmonary Urged to quit smoking Pt is c/o not being able to sleep well at night and having a lot of pain. Left leg is not getting any better-getting numb when standing up like cooking and cleaning. Pt states he is back to smoking, he had a CT scan and wants him to make an appt the end of jul. He couldn't tell him if it was cancer or scare tissue. Pt is wanting to call them and cancel that appt and insurance wont cover things with him smoking again. Pt was having suicidal tendencies and started smoking again. Pt started up about 3-4w ago and is back up to almost a pack a day. Pt has been tearful due to pain recently and has jerking movements too. Images from the original note were not included. Effie Chambers is a 64 y.o. male presents with chief complaint of No chief complaint on file. HPI: Here for a fu appt: Is seeing pulmonology and had CT chest, see CT report for specifics, is supposed to have a fu CT scan in a few months has good days and bad days with breathing Pain to thoracic and lumbar back pain: has had this for several years, has had narcotics, pain mgmt etc. Many meds not helpful, does not wish to have further evaluation SUBJECTIVE: MEDICATIONS: Current Outpatient Medications Medication Instructions albuterol HFA 90 mcg/act inhaler 2 puffs, Inhalation, Every 6 hours PRN Ciclopirox 1 % shampoo Lather on wet hair, leave on 5 min, rinse 2-3 x week, 30 day supply Qhgdzhacvxt-Uflmvtath-Jqexxj (Trelegy Ellipta) 100-62.5-25 MCG/ACT aerosol powder 1 puff, Inhalation, Daily, Rinse mouth after use ketoconazole (NIZOral) 2 % shampoo lather onto face and scalp, leave on 5 minutes then rinse topically 3-5 times weekly as needed for 30 day(s) ALLERGIES: Allergies Allergen Reactions Aspirin Swelling Codeine Other and Itching Ibuprofen GI intolerance Other Nausea And Vomiting Cortisone Anxiety, Other and Dizziness REVIEW OF SYMPTOMS: Review of Systems Constitutional: Negative for activity change, appetite change and unexpected weight change. HENT: Negative for ear pain, nosebleeds, sneezing, trouble swallowing and voice change. Eyes: Negative for pain, discharge and visual disturbance. Respiratory: Positive for cough and shortness of breath. Negative for apnea, chest tightness and wheezing. Cardiovascular: Negative for leg swelling. Gastrointestinal: Negative for abdominal distention, blood in stool, constipation and diarrhea. Genitourinary: Negative for decreased urine volume, difficulty urinating, dysuria and hematuria. Musculoskeletal: Positive for arthralgias and back pain. Skin: Negative for color change. Neurological: Negative for dizziness, tremors and seizures. Psychiatric/Behavioral: Negative for agitation, decreased concentration, hallucinations, self-injury and suicidal ideas. The patient is nervous/anxious. Depression Hematological: Negative for adenopathy. Does not bruise/bleed easily. Endocrine: Negative for cold intolerance, heat intolerance, polydipsia and polyuria. Allergic/Immunologic: Negative for environmental allergies and food allergies. 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 OBJECTIVE: Visit Vitals BP 122/90 (BP Location: Left arm, Patient Position: Sitting, BP Cuff Size: Adult long) Pulse 62 Temp 98.6 F (Temporal) Resp 19 Ht 6' Wt 234 lb SpO2 98% BMI 31.74 kg/m Smoking Status Former BSA 2.32 m Physical Exam Vitals and nursing note reviewed. Constitutional: Appearance: Normal appearance. HENT: Head: Normocephalic. Right Ear: External ear normal. Left Ear: External ear normal. Nose: Nose normal. Mouth/Throat: Mouth: Mucous membranes are moist. Pharynx: Oropharynx is clear. Eyes: Extraocular Movements: Extraocular movements intact. Conjunctiva/sclera: Conjunctivae normal. Cardiovascular: Rate and Rhythm: Normal rate and regular rhythm. Pulses: Normal pulses. Heart sounds: Normal heart sounds. Pulmonary: Effort: Pulmonary effort is normal. Breath sounds: No wheezing or rales. Comments: diminished Abdominal: General: Bowel sounds are normal. Palpations: Abdomen is soft. Musculoskeletal: Cervical back: Neck supple. Right lower leg: No edema. Left lower leg: No edema. Lymphadenopathy: Cervical: No cervical adenopathy. Skin: General: Skin is warm and dry. Capillary Refill: Capillary refill takes 2 to 3 seconds. Neurological: General: No focal deficit present. Mental Status: He is alert. Psychiatric: Mood and Affect: Mood normal. Behavior: Behavior normal. Thought Content: Thought content normal. Judgment: Judgment normal. ASSESSMENT AND PLAN: No follow-ups on file. Problem List Items Addressed This Visit Tobacco use Recommend quitting smoking COPD mixed type (CMS/HCC) Continue with pulmonary Urged to quit smoking Obesity (BMI 30-39.9) Chronic pain syndrome - Primary Offered pain mgmt, pt declines Offered deanne, elavil, duloxetine does not want to try these either documented in this encounter [facility] 06-22-2021 Note Chief Complaint Referral HPI Staff [...] w/o contrast Office Visit Level 4 New 70116 Urnls Dip Stick Auto w/o Microscopy POC 31328 2. Aspirin long-term use (Z79.82: shelter (current) use of aspirin) Hx of stroke. Cont ASA 81 mg. Strong family hx of CAD, MIs. Ordered: Office Visit Level 4 New 86582 3. Tobacco use (Z72.0: Tobacco use) Counseled on risks of prostate cancer and smoking, he will try patches to quit. He declined further assistance today, as he knows the resources to contact if needed. Ordered: Office Visit Level 4 New 90113 I have reviewed the previous health record information and history for this pt. from external provider, Dr. Bashir. Follow-up With When Contact Information Dmitri MISHRA, Tina Walden, URL, [facility] [address], [place] [address]- [phone] Additional Instructions: Patient Education Prostate-Specific Antigen Test [...] lower extremity Xena (more content not included)... [facility] Comment on above: Result Comment: Elec tronically Signed By: Dmitri MISHRA, Tina Walden\.br\Date and Time Signed: 06/22/21 14:10 EST\.br\Electronically Co-Signed By: Radha Mahan MA\.br\Date and Time Co-Signed: 06/22/21 13:53 EST\.br\Electronically Co-Signed By: Radha Mahan MA\.br\Date and Time Co-Signed: 06/22/21 13:55 EST Evaluation note [facility] [employer] Other Evaluation note [facility] [employer] Other Evaluation note Diagnosis COPD with acute exacerbation (CMS/HCC)- Primary BMI 29.0-29.9,adult Tobacco use Mixed hyperlipidemia (CMS/HCC) Mixed hyperlipidemia Screening for prostate cancer Special screening for malignant neoplasm of prostate COPD mixed type (CMS/HCC) COPD mixed type (CMS/HCC)- Primary Tobacco use Elevated PSA, between 10 and less than 20 ng/ml Mixed hyperlipidemia (CMS/HCC) Mixed hyperlipidemia Encounter for subsequent annual wellness visit (AWV) in Medicare patient- Primary COPD mixed type (CMS/HCC) Cerebrovascular accident (CVA), unspecified mechanism (CMS/HCC) Tobacco use Obesity (BMI 30-39.9) COPD mixed type (CMS/HCC)- Primary Obesity (BMI 30-39.9) Rosacea Chronic pain syndrome- Primary Tobacco use COPD mixed type (CMS/HCC) Obesity (BMI 30-39.9) COPD mixed type (CMS/HCC)- Primary Tobacco use [facility] Diagnosis COPD with acute exacerbation (CMS/HCC)- Primary BMI 29.0-29.9,adult Tobacco use Mixed hyperlipidemia (CMS/HCC) Mixed hyperlipidemia Screening for prostate cancer Special screening for malignant neoplasm of prostate COPD mixed type (CMS/HCC) COPD mixed type (CMS/HCC)- Primary Tobacco use Elevated PSA, between 10 and less than 20 ng/ml Mixed hyperlipidemia (CMS/HCC) Mixed hyperlipidemia Encounter for subsequent annual wellness visit (AWV) in Medicare patient- Primary COPD mixed type (CMS/HCC) Cerebrovascular accident (CVA), unspecified mechanism (CMS/HCC) Tobacco use Obesity (BMI 30-39.9) COPD mixed type (CMS/HCC)- Primary Obesity (BMI 30-39.9) Rosacea Chronic pain syndrome- Primary Tobacco use COPD mixed type (CMS/HCC) Obesity (BMI 30-39.9) COPD mixed type (CMS/HCC)- Primary Tobacco use COPD mixed type (CMS/HCC)- Primary Obesity (BMI 30-39.9) BMI 29.0-29.9,adult Tobacco use Chronic pain syndrome [facility] Diagnosis Chronic pain syndrome- Primary Tobacco use COPD mixed type (CMS/HCC) Obesity (BMI 30-39.9) [facility] HealthcareHistory general Narrative - ReportedLooking for Gamers Other History general Narrative - ReportedLooking for Gamers Other Summary Purpose Family History No Family History Records FoundNo Family History Records FoundNo Family History Records FoundNo Family History Records FoundNo Family History Records FoundNo Family History Records Found Advance Directives Documents on File Type Date Recorded 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 Advance Directives and Living Will 06/22/2024 9:59 AM Living will Power of Vehicle Mechanic 06/22/2024 9:57 AM sakshi r of manager fitness Additional Source Comments (unrecognized sect ion and content) No Status Records FoundNo Status Records FoundNo Status Records FoundNo Status Records FoundNo Status Records FoundNo Status Records Found INFORMATION SOURCE (unrecogn ized section and content) DATE CREATED AUTHOR 08/07/2020 [facility] DATE CREATED AUTHOR AUTHOR'S ORGANIZ ATION 06/12/2021 [facility] DATE CREATED AUTHOR AUTHOR'S ORGANIZ ATION 11/08/2021 [facility] DATE CREATED AUTHOR AUTHOR'S ORGANIZ ATION 01/24/2022 [facility] DATE CREATED AUTHOR AUTHOR'S ORGANIZ ATION 12/13/2023 [facility] DATE CREATED AUTHOR AUTHOR'S ORGANIZ ATION 06/24/2024 [facility] dical Specialists EPIC Care Teams (unrecognized sec tion and content) Wool Hat Forming Machine Tender Relationship Specialty Start Date End Date Akil Fink MD [address] [place] [phone] PCP - General Family Medicine 09/25/23 Theodora Mitchell NP [address] [place] [phone] PCP Smitha Marks MA 02/02/24 Shaikh Tamayo MD [address] [place] [phone] Referring Physician Internal Medicine 09/25/23 Laura Barger LPN Licensed Practical Nurse Family Medicine 04/16/24 [employer] Machine Tender Relationship Specialty Start Date End Date Akil Fink MD [address] [place] [phone] PCP - General Family Medicine 09/25/23 Theodora Mitchell NP [address] [place] [phone] PCP Smitha Marks MA 02/02/24 Shaikh Tamayo MD [address] [place] [phone] Referring Physician Internal Medicine 09/25/23 Laura Barger LPN Licensed Practical Nurse Family Medicine 04/16/24 Wool Hat Forming Machine Tender Relationship Specialty Start Date End Date Akil Fink MD [address] [place] [address] PCP - General Family Medicine 09/25/23 Theodora Mitchell NP [address] [place] [phone] PCP - Kendrick PACK 02/02/24 Shaikh Tamayo MD [address] [place] [phone] Referring Physician Internal Medicine 09/25/23 Mary Bain MA Family Medicine 06/15/24 Wool Hat Forming Machine Tender Relationship Specialty Start Date End Date Akil Fink MD [address] [place] [phone] PCP - General Family Medicine 09/25/23 Theodora Mitchell NP [address] [place] [address] PCP - Kendrick PACK 02/02/24 Shaikh Tamayo MD [address] [place] [phone] Referring Physician Internal Medicine 09/25/23 Mary Bain MA Family Medicine 06/15/24 Wool Hat Forming Machine Tender Relationship Specialty Start Date End Date Akil Fink MD [address] [place] [phone] PCP - General Family Medicine 09/25/23 Theodora Mitchell NP [address] [place] [phone] PCP - Kendrick PACK 02/02/24 Shaikh Tamayo MD [address] [place] [phone] Referring Physician Internal Medicine 09/25/23 Laxmi Hdz LPN Licensed Practical Nurse Family Medicine 12/23/23 Wool Hat Forming Machine Tender Relationship Specialty Start Date End Date Akil Fink MD [address] [place] [phone] PCP - General Family Medicine 09/25/23 Theodora Mitchell NP [address] [place] [phone] PCP Smitha Marks MA 02/02/24 Shaikh Tamayo MD [address] [place] [phone] Referring Physician Internal Medicine 09/25/23 Laxmi Hdz LPN Licensed Practical Nurse Family Medicine 12/23/23 Reason for Visit (unrecogniz ed section and content) Reason Comments COPD Shortness of Breath Back Pain Neck Pain FOR RECORDS PERTAINING TO PATIENTS WHO ARE [...] BE BASED ON THE PRIMARY CLINICAL RECORDS. [employer] [facility]. provides no warranty or guarantee of the accuracy or completeness of information in this document.
== END 2024-08-02 08:42 | disposition home or self-care (01) ==
LOC: CT 08:41
PROVIDERS: PCP Nurse Practitioner; Visit Provider Internal Medicine
DX: R91.1 Solitary pulmonary nodule (principal)
CPT/HCPCS: 71250

== ENCOUNTER 2025-05-16 06:28 | Outpatient (OUT) | payer MEDICARE, MEDICAID, SELFPAY ==
--- OUTSIDE RECORDS SUMMARY | 2025-02-08 04:30 | XMS_ITS ---
Author Organization [facility] in [place] Address [address] [place] [address] Care Team Providers Care Stock Broker Supervisor Name Role Phone Theodora Mitchell CNP Primary Care Provider Joanna Valdez Beto Unavailable [phone] REASON FOR VISIT 6m - COPD Encounters Encounter Location Date Provider Diagnosis Pulmonary Medicine [address] [address] 02/08/2025 Beto Valdez Plan Of Treatment No Information Progress Notes * Taran CHAMBERS PDOB:1960 (65 yo M)Acc No.[id number]:02/08/2025 UNLOCKED PROGRESS NOTE Follow Up Patient: Meek Taran KOHLI Provider: Arturo Valdez DO :1960 A ge:65 Y S ex:Male Date:02/08/2025 Address:[address] [place], [place] [address] Pcp:Theodora Mitchell CNP Subjective: * Chief Complaints: * 1 . 6m - COPD. * Medical History: Objective: * Vitals: Assessment: Plan: * Treatment: * * Electronic signature of Cordelia Valdez DO on 05/16/2025 at 06:33 AM EDT Sign off status: Pending Visit Status: C ANC (Cancelled) * Provider: Arturo Valdez DO Date: 0 02/08/2025 Generated for Printi ng/Faxing/eTransmitting on: 1 06:33 AM EDT
--- OUTSIDE RECORDS SUMMARY | 2025-05-16 06:33 | XMS_ITS | Encounter Summary ---
Author Organization [facility] Address [address] [place] [address] Care Team Providers Care Mechanical Engineering Lecturer Name Role Phone Akil Fink MD Primary Care Provider [phone] Shaikh TAD Tamayo Unavailable [phone] Laxmi Hdz MARINA MANAGER Unavailable Unavailable Theodora Mitchell NP Unavailable [phone] Laura Barger MARINA MANAGER Unavailable Mary Bain MA Unavailable [phone] Encounter Details Date Type Department Care Team (Late st Contact Info) Description 02/19/2024 Clinisync Result Encounter [facility] External Department Unsolicited Provider, Generic External Data Social History Tobacco Use Types Packs/Day Years Used Date Smoking Tobacco: Former Cigarettes Q uit: 12/16/2023 Passive Smoke Exposure: Never Smokeless Tobacco: Never Alcohol Use Standard Drinks/Week Comments Never 0 (1 standard drink = 0.6 oz pur e alcohol) caffine: 2cups daily Humiliation, Afraid, Rape, and Kick questionnair e Answer Date Recorded Within the last year, have y ou been afraid of your partner or ex-partner? No 09/25/2023 Within the last year, have y ou been humiliated or emotionally abused in other ways by your partner or ex-partner? No Within the last year, have y ou been kicked, hit, slapped, or otherwise physically hurt by your partner or ex-partner? No 09/25/2023 Within the last year, have y ou been raped or forced to have any kind of sexual activity by your partner or ex-partner? No 09/25/2023 Social Connection and Isolation Panel Answer Date Recorded In a typical week, how many times do you talk on the phone with family, friends, or neighbors? More than three times a week 09/24/2023 How often do you get togethe r with friends or relatives? Once a week 09/24/2023 How often do you attend chur ch or episcopalian services? Never 09/24/2023 Do you belong to any clubs o r organizations such as druze groups, unions, fraternal or athletic groups, or school groups? No 09/24/2023 How often do you attend meet ings of the clubs or organizations you belong to? Never 09/24/2023 Are you , , di vorced, , never , or living with a partner? 09/24/2023 AUDIT-C Answer Date Recorded Q1: How often do you have a drink containing alc ohol? Monthly or less 09/24/2023 Q2: How many drinks containi ng alcohol do you have on a typical day when you are drinking? 1 or 2 09/24/2023 Q3: How often do you have si x or more drinks on one occasion? Never 09/24/2023 Overall Financial Resource Strain (CARDIA) Answe r Date Recorded How hard is it for you to pa y for the very basics like food, housing, medical care, and heating? Not very hard 09/24/2023 PHQ-2 Answer Date Recorded Patient Health Questionnaire-2 Score 2 12/01/2023 [facility] Occupat ional Health - Occupational Stress Questionnaire Answer Date Recorded Do you feel stress - tense, restless, nervous, or anxious, or unable to sleep at night because your mind is troubled all the time - these days? Not at all 09/24/2023 Exercise Vital Sign Answer Date Recorde d On average, how many days pe r week do you engage in moderate to strenuous exercise (like a brisk walk)? 0 days 09/24/2023 On average, how many minutes do you engage in exercise at this level? 0 min 09/24/2023 Hunger Vital Sign Answer Date Recorded Within the past 12 months, y ou worried that your food would run out before you got the money to buy more. Never true 09/24/19 24 Within the past 12 months, t he food you bought just didn't last and you didn't have money to get more. Never true 09/24/2023 PRAPARE - Transportation Answer Date Re corded In the past 12 months, has l ack of transportation kept you from medical appointments or from getting medications? No 09/05 In the past 12 months, has l ack of transportation kept you from meetings, work, or from getting things needed for daily living? No 09/24/2023 Housing Stability Vital Sign Answer Justice e Recorded In the last 12 months, was t here a time when you were not able to pay the mortgage or rent on time? No 09/24/2023 In the last 12 months, how many places have you lived? 1 09/24/2023 In the last 12 months, was t here a time when you did not have a steady place to sleep or slept in a m[facility]p (including now)? No 09/24/2023 Sex and Gender Information Value Date Recorded Sex Assigned at Not on file Legal Sex Male 6:52 PM EDT Gender Identity Not on file Sexual Orientation Not on file documented as of this encounter Plan of Treatment Not on file documented as of this encounter Procedures Procedure Name Priority Date/Time Associated Diagnosis Comments CT LUNG SCREENING LOW DOSE 02/19/2024 8:36 AM EDT documented in this encounter Results * CT LUNG SCREENING LOW DOSE (02/19/2024 8:36 AM EDT) Anatomical Region Laterality Modality Other 02/19/2024 8:36 AM EDT Narrative 02/19/2024 8:38 [place] [address] CT Scan Report Signed Patient: EFFIE CHAMBERS MR#: [id number] : 1960 Acct:[id number] Age/Sex: 64 / M ADM Date: 02/19/24 Loc: CT Attending Dr: Sammy Camacho D.O. Ordering Physician: Sammy Camacho D.O. Date of Service: 02/19/24 Procedure(s): CT lung screening low-dose Accession Number(s): [id number] cc: Theodora Mitchell NP [place] [address] Patient Name: EFFIE CHAMBERS MRN: [facility]:[id number] date: 1960 Sex: M Assigned Patient Location: CT Current Patient Location: CT Accession/Order Number: [id number] Exam Date: 02/19/2024 08:01 Report Date: 02/19/2024 08:36 At the request of: SAMMY CAMACHO Procedure: CT lung screening low-dose EXAMINATION: CT lung screening low-dose HISTORY: Nicotine Dependence F17.219 COMPARISON: No relevant comparison available. TECHNIQUE: Axial, Coronal, and Sagittal images were created without the administration of IV contrast material. Dose reduction techniques were achieved by using automated exposure control and/or adjustment of mA and/or kV according to patient size and/or use of iterative reconstruction technique. FINDINGS: LUNGS: 6 mm nodule within the right middle lobe. 9 x 4 x 3 mm nodule within left lower lobe medial basilar segment. Moderate emphysematous changes. Mild atelectasis versus infiltrates versus residual lung parenchyma within left lung base. PLEURA: No mass, effusion, or pneumothorax. VASCULATURE: No abnormality. KYMBERLY: No mass or pathologic adenopathy. MEDIASTINUM: No mass or pathologic adenopathy. CARDIAC: No enlargement, pericardial thickening, or pericardial effusion. Coronary Artery calcifications: AORTA: No aneurysm or dissection. CHEST WALL: No mass or axillary adenopathy BONES: T11 moderate compression fracture. LIMITED ABDOMEN: No suspicious findings. Limited images of the upper abdomen. OTHER: Negative. CT/CT lung screening low-dose IMPRESSION: 1. Lung-RADS Category 3- Probably benign. Probably benign finding(s)- short term follow up suggested; includes nodules with a low likelihood of becoming a clinically active cancer. Six month LDCT. 2. Moderate compression fracture of T11; age indeterminant but suspected to be chronic. Electronically authenticated by: SANDRO HUSAIN Date: 02/19/2024 08:36 Dictated By: Sandro Husain M.D. Signed By: 02/19/2438 DD/ 5 TD/TT: Razor Sharpener: Procedure Note Radiology, Radiologist, MD - 02/19/2024 [place] [address] CT Scan Report Signed Patient: EFFIE CHAMBERS PMR#: [id number] : 1960cct:[id number] Age/Sex: 64 / MADM Date: 02/19/24 Loc: CT Attending Dr: Sammy Camacho D.O. Ordering Physician: Sammy Camacho D.O. Date of Service: 02/19/24 Procedure(s): CT lung screening low-dose Accession Number(s): [id number] cc: Theodora Mitchell NP [facility] [place] [address] Patient Name: EFFIE CHAMBERS MRN: [id number] date: 1960 Sex: M Assigned Patient Location: CT Current Patient Location: CT Accession/Order Number: [id number] Exam Date: 02/19/2024 08:01 Report Date: 02/19/2024 08:36 At the request of: SAMMY CAMACHO Procedure: CT lung screening low-dose EXAMINATION: CT lung screening low-dose HISTORY: Nicotine Dependence F17.219 COMPARISON: No relevant comparison available. TECHNIQUE: Axial, Coronal, and Sagittal images were created without the administration of IV contrast material. Dose reduction techniques were achieved by using automated exposure control and/or adjustment of mA and/or kV according to patient size and/or use of iterative reconstruction technique. FINDINGS: LUNGS: 6 mm nodule within the right middle lobe. 9 x 4 x 3 mm nodulewithin left lower lobe medial basilar segment. Moderate emphysematous changes.Mild atelectasis versus infiltrates versus residual lung parenchyma within left lung base. PLEURA: No mass, effusion, or pneumothorax. VASCULATURE: No abnormality. KYMBERLY: No mass or pathologic adenopathy. MEDIASTINUM: No mass or pathologic adenopathy. CARDIAC: No enlargement, pericardial thickening, or pericardial effusion. Coronary Artery calcifications: AORTA: No aneurysm or dissection. CHEST WALL: No mass or axillary adenopathy BONES: T11 moderate compression fracture. LIMITED ABDOMEN: No suspicious findings. Limited images of the upperabdomen. OTHER: Negative. CT/CT lung screening low-dose IMPRESSION: 1. Lung-RADS Category 3- Probably benign. Probably benign finding(s)-short term follow up suggested; includes nodules with a low likelihood ofbecoming a clinically active cancer. Six month LDCT. 2. Moderate compression fracture of T11; age indeterminant but suspectedto be chronic. Electronically authenticated by: SANDRO HUSAIN Date: 02/19/2024 08:36 Dictated By: Sandro Husain M.D. Signed By:02/19/2438 DD/ TD/TT: Razor Sharpener: us Generic External Data Provider [facility] Final Result documented in this encounter Visit Diagnoses Not on filedocumented in this encounter Additional Health Concerns Assessment Noted Time PHQ-9 Depression Total Score: 4 12/01/19 10:35 AM EDT A fall risk assessment has been complete d for the patient 12/24/2023 10:13 AM EDT documented as of this encounter Care Teams Mechanical Engineering Lecturer Relationship Specialty Start Date End Date Akil Fink MD PCP - General Family Medicine 09/25/23 Theodora Mitchell NP [address] [place] [address] PCP - Kendrick PACK 02/02/24 Shaikh Tamayo MD Referring Physician Internal Medicine 09/25/23 Laxmi Hdz LPN Licensed Practical Nurse Family Medicine 12/23/23 Laura Barger LPN [address] [place] [address] Licensed Practical Nurse Family Medicine 04/16/2406/04 Mary Bain MA [address] [place] [address] Family Medicine 06/15/24 03/29/25 documented as of this encounter
--- OUTSIDE RECORDS SUMMARY | 2025-05-16 06:33 | XMS_ITS | Encounter Summary ---
Author Organization [employer] Address [id number] [address] [place] [address] Care Team Providers Care District Sales Leader Name Role Phone No Pcp, No Pcp Primary Care Provider Unavailabl e Reason for Visit * Reason Comments Med Refill Encounter Details Date Type Department Care Team (Late st Contact Info) Description 07/05/2023 Refill [facility] [address] [facility] [address] [place] [address] Lin Rivera MD [address] [facility] [address] [place] [address] Fibromyalgia Social History Tobacco Use Types Packs/Day Years Used Date Smoking Tobacco: Every Day Cigarettes Passive Smoke Exposure: Current Smokeless Tobacco: Never Sex and Gender Information Value Date Recorded Sex Assigned at Not on file Legal Sex Male 9:10 AM EDT Gender Identity Not on file Sexual Orientation Not on file documented as of this encounter Plan of Treatment Not on file documented as of this encounter Visit Diagnoses Diagnosis Fibromyalgia Unspecified myalgia and myositis documented in this encounter Care Teams District Sales Leader Relationship Specialty Start Date End Date No Pcp, [place] [address] PCP - General Family Medicine 07/11/22 documented as of this encounter
--- OUTSIDE RECORDS SUMMARY | 2025-05-16 06:33 | XMS_ITS | Encounter Summary ---
Author Organization [facility] Address [address] [place] [address] Care Team Providers Care Fund Controller Name Role Phone Akil Fink MD Primary Care Provider [phone] Shaikh TAD Tamayo Unavailable [phone] Theodora Mitchell NP Unavailable [phone] Mary Bain MA Unavailable [phone] Encounter Details Date Type Department Care Team (Late st Contact Info) Description 08/04/2024 Clinisync Result Encounter [facility] External Department Unsolicited [...] often do you attend chur ch or confucianism services? Never 09/24/2023 Do you belong to any clubs o r organizations such as moravian groups, unions, fraternal or athletic groups, or [...] Date Recorded Patient Health Questionnaire-2 Score 2 03/30/2024 [facility] - Occupational Stress Questionnaire Answer Date Recorded [...] place to sleep or slept in a halfway (including now)? No 09/24/2023 Sex and Gender Information Value Date Recorded Sex Assigned at Not on file Legal Sex Male 6:52 PM EDT Gender Identity Not on file Sexual Orientation Not on file documented as of this encounter Plan of Treatment Not on file documented as of this encounter Procedures Procedure Name Priority Date/Time Associated Diagnosis Comments CT CHEST WO CON 08/04/2024 3:45 AM EST documented in this encounter Results * CT CHEST WO CON (08/04/2024 3:45 AM EST) Anatomical Region Laterality Modality Other 08/04/2024 3:45 AM EST Narrative 08/04/2024 3:48 AM EST The [address] [address] [address] Scan Report Signed Patient: BINH CHAMBERSArturo Thomason MR#: [id number] : 1960 Acct:[id number] Age/Sex: 64 / M ADM Date: 08/02/24 Loc: CT Attending Dr: Sammy Camacho D.O. Ordering Physician: Sammy Camacho D.O. Date of Service: 08/02/24 Procedure(s): CT chest wo con Accession Number(s): [id number] cc: Theodora Mitchell NP [address] [address] Patient Name: EFFIE P SILCOX MRN: [id number] date: 1960 Sex: M Assigned Patient Location: CT Current Patient Location: Accession/Order Number: [id number] Exam Date: 08/02/2024 08:55 Report Date: 08/04/2024 03:45 At the request of: SAMMY CAMACHO Procedure: CT chest wo con EXAMINATION: CT chest wo con HISTORY: Solitary Pulmonary Nodule COMPARISON: CT Lung Screening 02/19/2024 TECHNIQUE: Axial, Coronal, and Sagittal images were created without the administration of IV contrast material. Dose reduction techniques were achieved by using automated exposure control and/or adjustment of mA and/or kV according to patient size and/or use of iterative reconstruction technique. FINDINGS: LUNGS: Stable 6 mm nodule within right middle lobe (this is partially distorted on today's study due to respiratory motion artifact). Stable 9 x 4 mm nodule within posterior medial left lung base. No new nodules. Moderate to marked emphysematous changes. PLEURA: No mass, effusion, or pneumothorax. VASCULATURE: No abnormality. KYMBERLY: No mass or pathologic adenopathy. MEDIASTINUM: No mass or pathologic adenopathy. CARDIAC: No enlargement, pericardial thickening, or pericardial effusion. Coronary Artery calcifications: Coronary calcifications are mild. AORTA: No aneurysm or dissection. CHEST WALL: No mass or axillary adenopathy BONES: T11 mild compression fracture, unchanged, and suspected to be chronic. LIMITED ABDOMEN: 5.9 cm left renal cysts incompletely included on today's study, but favoring benign etiology. Limited images of the upper abdomen. OTHER: Negative. CT/CT chest wo con IMPRESSION: 1. Lung-RADS 2- Benign Appearance or Behavior. Nodules with a very low likelihood of becoming a clinically active cancer due to size or lack of growth. Follow-up CT Chest in 1 year. Electronically authenticated by: SANDRO HUSAIN Date: 08/04/2024 03:45 Dictated By: Sandro Husain M.D. Signed By: 08/04/24347 DD/ 4 TD/TT: National Van Owner Operator: Procedure Note Radiology, Radiologist, - 08/04/[address] [address] [address] Scan Report Signed Patient: EFFIE CHAMBERS PMR#: [id number] : 1960cct:[id number] Age/Sex: 64 / MADM Date: 08/02/24 Loc: CT Attending Dr: Sammy Camacho D.O. Ordering Physician: Sammy Camacho D.O. Date of Service: 08/02/24 Procedure(s): CT chest wo con Accession Number(s): [id number] cc: Theodora Mitchell NP [address] [address] Patient Name: EFFIE CHAMBERS MRN: [id number] date: 1960 Sex: M Assigned Patient Location: CT Current Patient Location: Accession/Order Number: [id number] Exam Date: 08/02/2024 08:55 Report Date: 08/04/2024 03:45 At the request of: SAMMY CAMACHO Procedure: CT chest wo con EXAMINATION: CT chest wo con HISTORY: Solitary Pulmonary Nodule COMPARISON: CT Lung Screening 02/19/2024 TECHNIQUE: Axial, Coronal, and Sagittal images were created without the administration of IV contrast material. Dose reduction techniques were achieved by using automated exposure control and/or adjustment of mA and/or kV according to patient size and/or use of iterative reconstruction technique. FINDINGS: LUNGS: Stable 6 mm nodule within right middle lobe (this is partially distorted on today's study due to respiratory motion artifact). Stable 9 x 4 mmnodule within posterior medial left lung base. No new nodules. Moderate to marked emphysematous changes. PLEURA: No mass, effusion, or pneumothorax. VASCULATURE: No abnormality. KYMBERLY: No mass or pathologic adenopathy. MEDIASTINUM: No mass or pathologic adenopathy. CARDIAC: No enlargement, pericardial thickening, or pericardial effusion. Coronary Artery calcifications: Coronary calcifications are mild. AORTA: No aneurysm or dissection. CHEST WALL: No mass or axillary adenopathy BONES: T11 mild compression fracture, unchanged, and suspected to bechronic. LIMITED ABDOMEN: 5.9 cm left renal cysts incompletely included on today's study, but favoring benign etiology. Limited images of the upper abdomen. OTHER: Negative. CT/CT chest wo con IMPRESSION: 1. Lung-RADS 2- Benign Appearance or Behavior. Nodules with a very low likelihood of becoming a clinically active cancer due to size or lack of growth. Follow-up CT Chest in 1 year. Electronically authenticated by: SANDRO HUSAIN Date: 08/04/2024 03:45 Dictated By: Sandro Husain M.D. Signed By:08/04/24347 DD/ 4 TD/TT: National Van Owner Operator: us Generic External Data Provider [facility] Final Result documented in this encounter Visit Diagnoses Not on filedocumented in this encounter Additional Health Concerns Assessment Noted Time PHQ-9 Depression Total Score: 4 12/01/19 10:35 AM EDT A fall risk assessment has been complete d for the patient 12/24/2023 10:13 AM EDT documented as of this encounter Care Teams Fund Controller Relationship Specialty Start Date End Date Akil Fink MD PCP - General Family Medicine 09/25/23 Theodora Mitchell NP [address] [place] [address] PCP - Kendrick PACK 02/02/24 Shaikh Tamayo MD Referring Physician Internal Medicine 09/25/23 Mary Bain MA [address] [place] [address] Family Medicine 06/15/24 03/29/25 documented as of this encounter
--- OUTSIDE RECORDS SUMMARY | 2025-05-16 06:33 | XMS_ITS | Patient Health Record ---
Author Organization [facility] in [place] Address [address] [place] [address] Care Team Providers Care Medical Director/Head Team Physician Name Role Phone Theodora Mitchell CNP Primary Care Provider Unavail able Sammy Camacho Unavailable [phone] Allergies Allergen (clinical drug ingredient) Drug/Non Drug Allergy documented on EMR Reaction Allergy Type Onset Date Status aspirin Aspirin rash Drug Allergy Active codeine Codeine shortness of breath Drug Allergy Active Results Component Value Reference Range Notes CT chest wo con Reviewed date:08/05/2024 11:32:41 AM Interpretation: Performing Lab: Notes/Report: Source Facility: [place] [address] CT Scan Report Signed Patient: EFFIE CHAMBERS MR#: [id number] : 1960 Acct:[id number] Age/Sex: 64 / M ADM Date: 08/02/24 Loc: CT Attending Dr: Sammy Camacho D.O. Ordering Physician: Sammy Camacho D.O. Date of Service: 08/02/24 Procedure(s): CT chest wo con Accession Number(s): [id number] cc: Theodora Mitchell NP [place] [address] Patient Name: EFFIE CHAMBERS MRN: [id number] date: 1960 Sex: M Assigned Patient Location: CT Current Patient Location: Accession/Order Number: [id number] Exam Date: 08/02/2024 08:55 Report Date: 08/04/2024 03:45 At the request of: SAMMYSAMIR CAMACHO Procedure: CT chest wo con EXAMINATION: [...] Dictated By: Sandro Husain M.D. Signed By: 08/04/248 DD/ 4 TD/TT: Director Smb Sales: CT Chest w/o contrast Reviewed date:08/05/2024 10:48:23 AM Interpretation: Performing Lab: Notes/Report: [id number] SCREENIN G SWAB Reviewed date:08/18/2024 05:37:46 PM Interpretation: Performing Lab: Notes/Report: Reason For Referral No Information Medications Medication SIG (Take, Route, Frequency, Duration) Notes Start Date End Date Status Nicotine 21 MG/24HR 1 patch to skin Transdermal Once a day; Duration: 30 days On in AM, off @ HS Can dispense in a box for whatever quantity is in it (28, 30) 08/10/2024 Active ProAir RespiClick 108 (90 Base) MCG/ACT Inhalation; Duration: 25 Days Active Trelegy Ellipta 100-62.5-25 MCG/ACT Inhalation; Duration: 30 Days Active Social History Tobacco Use: Social History Observation Description Date Details (start date - stop date) Current Smoker NA - NA Tobacco Control (Standard) Question Answer Notes Tobacco use: Current every day smoker Additional Findings: Tobacco user Moderate cigar ette smoker (10-19 cigs/day) Problems Problem Type SNOMED Code ICD Code Onset Dates Problem Status W/U Status Risk Notes Problem Obesity (663512164) Obesity, unspecified (E66.9) Active confirmed Problem Centrilobular emphysema (09989483) Centrilobular emphysema (J43.2) Active confirmed Problem Solitary pulmonary nodule (773833785) Solitary pulmonary nodule (R91.1) Active confirmed Problem Long-term current use of inhaled steroid (704800762) terminal manager (current) use of inhaled steroids (Z79.51) Active confirmed Problem 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) Cigarette nicotine dependence with nicotine-induced disorder (F17.219) Active confirmed Problem Multiple pulmonary nodules (515933908) Multiple pulmonary nodules (R91.8) Active confirmed Problem Cannabis dependence (67604240) Marijuana smoker (F12.90) Active confirmed Vital Signs Heart Rate 87 /min 08/10/2024 Temperature 96.9 degrees Fahrenheit 08/10/2024 Respiratory Rate 18 /min 08/10/2024 Blood pressure diastolic 83 mm Hg 08/10/2024 Oximetry 94 % 08/10/2024 Height 72.75 in 08/10/2024 Blood pressure systolic 113 mm Hg 08/10/2024 Weight 244.0 lbs 08/10/2024 BMI 32.41 kg/m2 08/10/2024 Encounters Encounter Location Date Provider Diagnosis [facility] [address] [place] [address] 08/10/2024 Sammy Camacho Centrilobular emphys marquise J43.2 ; Multiple pulmonary nodules R91.8 ; COPD (chronic obstructive pulmonary disease) J44.9 ; Cigarette nicotine dependence with nicotine-induced disorder F17.219 ; terminal manager (current) use of inhaled steroids Z79.51 and Obesity, unspecified E66.9 [facility] [address] [place] [address] 08/30/2024 Sammy [facility] [address] [place] [address] 01/03/2025 Sammy [facility] Assessments Encounter Date Diagnosis (ICD Code) Assessment Notes Treatment Notes Treatment Clinical Notes Section Notes 08/10/2024 Centrilobular emphysema (ICD-10 - J43.2) Patient remains symptomatic on Trelegy. He is using it daily as directed with some benefit, but still is short of breath. Patient voiced understanding that his continued smoking is not helping either. Explained since last visit, several new medications have been approved for COPD. I brought up Ohtuvayre and I feel this may be a better option to add-on top of Trelegy instead of theophylline, Daliresp, or azithromycin. I explained that it is nebulized twice daily and one of the more commonly reported adverse effects are psychiatric. He states he understands what a nebulizer is but does not have one, and he states that his mood is okay and he would watch out for any changes. [id number] was performed with the patient today regarding the need for a nebulizer and nebulizer supplies. Patient requires a nebulizer to facilitate the administration of Ohtuvayre, as it is only administered via nebulizer. Paperwork was signed by the patient to initiate the beginning steps for Ohtuvayre. Emphysematous changes were noted on chest CT. Will check for alpha-1 antitrypsin (AAT) deficiency. Pamphlet discussing AAT causes, testing, and potential treatment was provided to the patient. Appropriate follow-up is dependent on identified genotype. F/U 6 months, or sooner PRN. 08/10/2024 Multiple pulmonary nodules (ICD-10 - R91.8) LDCT 02/19/2024 noted pulmonary nodules: 9mm LLL and 6mm RML. Follow-up chest CT 08/02/2024 showed no change in the nodule size, shape, or number. 12-month follow-up chest CT would be indicated at this point. Patient states that he does not want to get one a year from now as he does not like going out in the cold weather due to his chronic pain (which is aggravated by the cold). I stated that I would put down a 1 year follow-up chest CT order, and if he chooses not to get it done at that time, that would be his choice and not my recommendation. 08/10/2024 COPD (chronic obstructive pulmonary disease) (ICD-10 - J44.9) 08/10/2024 Cigarette nicotine dependence with nicotine-induced disorder (ICD-10 - F17.219) Previously 2ppd x 52 years. Quit for a while on nicotine patches, lozenges, and the [id number] line. However, he feels that he was titrated down too quickly on nicotine patches and eventually restarted smoking. He is currently at 1/2 pack a day. I recommended restarting nicotine patches as a 21mg strength (on in AM, off @ HS) and taper down when he feels he is ready. He voiced he would like to do that. As we are following his pulmonary nodules, LDCT screening is on hold. 08/10/2024 USP (current) use of inhaled steroids (ICD-10 - Z79.51) .Patient was counseled to rinse & gargle with water after inhaled corticosteroid use. 08/10/2024 Obesity, unspecified (ICD-10 - E66.9) Patient's weight is inducing a restrictive pulmonary physiology. Weight loss indicated: Decrease calories, increase activity. 08/10/2024 Other Plan Of Treatment No Information Insurance Providers Payer Name Payer Address Payer Phone Subscriber Number Group Number Insured Name Patient Relationship to Insured Coverage Start Date Coverage End Date [employer] DUAL ADV PRIMARY MEDICARE [address] [place] [address] [id number] Effie Chambers Self - patient is the insured MEDICAID [place] 2ND INS [address] [place], [place] [id number] Effie Chambers Self - patient is the insured Medical (General) History Medical History History ICD Code Centrilobular emphysema J43.2 Multiple pulmonary nodules R91.8 Sensorineural hearing loss (SNHL) of bot h ears H90.3 HLD (hyperlipidemia) E78.5 Positive PASCUAL (antinuclear antibody) R76. 8 Cigarette nicotine dependence with nicot ine-induced disorder F17.219 Marijuana smoker F12.90 Surgical History Surgery Date(Month/Year) Foot Surgery tonsillectomy
--- OUTSIDE RECORDS SUMMARY | 2025-05-16 06:33 | XMS_ITS | Encounter Summary ---
Author Organization [facility] Address [address] [facility] [place] [address] Care Team Providers Care Bid Clerk Name Role Phone Akil Fink MD Primary Care Provider Shaikh TAD Tamayo Unavailable [phone] Tran Su TELECOM ASSISTANT-SEISMOGRAPH CHIEF Unavailable Laxmi Hdz FLOOR WORKER Unavailable Unavailable Theodora Mitchell NP Unavailable [phone] Laura Barger FLOOR WORKER Unavailable Mary Bain MA Unavailable [phone] Reason for Visit * Reason Comments Med Refill Encounter Details Date Type Department Care Team (Late st Contact Info) Description 04/10/2023 [facility] [address] [facility] [address] [place] [address] Tran Su, TELECOM ASSISTANT-SEISMOGRAPH CHIEF [address] [facility] [address] [place] [address] Social History Tobacco Use Types Packs/Day Years Used Date Smoking Tobacco: Never Assessed Sex and Gender Information Value Date Recorded Sex Assigned at Not on file Legal Sex Male 6:52 PM EDT Gender Identity Not on file Sexual Orientation Not on file documented as of this encounter Plan of Treatment Not on file documented as of this encounter Visit Diagnoses Not on filedocumented in this encounter Care Teams Bid Clerk Relationship Specialty Start Date End Date Akil Fink MD PCP - General Family Medicine 09/25/23 Tran Su, TELECOM ASSISTANT-SEISMOGRAPH CHIEF [address] [address] PCP - Kendrick PACK 08/04/23 02/01/24 Theodora Mitchell NP [address] [facility] [place] [address] PCP - Kendrick PACK 02/02/24 Shaikh Tamayo MD Referring Physician Internal Medicine 09/25/23 Laxmi Hdz LPN Licensed Practical Nurse Family Medicine 12/23/23 Laura Barger LPN [address] [place] [address] Licensed Practical Nurse Family Medicine 04/16/2406/04 Mary Bain MA [address] [place] [address] Family Medicine 06/15/24 03/29/25 documented as of this encounter
--- OUTSIDE RECORDS SUMMARY | 2025-05-16 06:33 | XMS_ITS | Encounter Summary ---
[facility] Address [id number] [address] [place] [address] Care Team Providers Care Rib Sawyer Name Role Phone No Pcp, No Pcp Primary Care Provider Unavailabl e Encounter Details Date Type Department Care Team (Late st Contact Info) Description 12/18/2022 Orders Only [facility] [address] [facility] [address] [place] [address] Nicky Mead CMA Social History Tobacco Use Types Packs/Day Years [...] on filedocumented in this encounter Care Teams Rib Sawyer Relationship Specialty Start Date End Date No Pcp, [place] [address] PCP - General Family Medicine 07/11/22 documented as of this encounter
--- OUTSIDE RECORDS SUMMARY | 2025-05-16 06:33 | XMS_ITS | Encounter Summary ---
Author Organization [employer] [facility] Address [id number] [place] [address] Care Team Providers Care Home Economics Teacher Name Role Phone No Pcp, No Pcp Primary Care Provider Unavailabl e Encounter Details Date Type Department Care Team (Late st Contact Info) Description 11/06/2022 Orders Only [facility] [address] [facility] [address] [place] [address] Nicky Mead CMA Social History Tobacco Use Types Packs/Day Years Used Date Smoking Tobacco: Every Day Cigarettes Passive Smoke Exposure: Current Smokeless Tobacco: Never Sex and Gender Information Value Date Recorded Sex Assigned at Not on file Legal Sex Male 9:10 AM EDT Gender Identity Not on file Sexual Orientation Not on file COVID-19 Exposure Response Date Recorded In the last month, have you been in contact with someone who was confirmed or suspected to have Coronavirus / COVID-19? No / Unsure 11/06/2022 9:15 AM EDT documented as of this encounter Plan of Treatment Not on file documented as of this encounter Visit Diagnoses Not on filedocumented in this encounter Care Teams Home Economics Teacher Relationship Specialty Start Date End Date No Pcp, [place] [address] PCP - General Family Medicine 07/11/22 documented as of this encounter
--- OUTSIDE RECORDS SUMMARY | 2025-05-16 06:33 | XMS_ITS | Encounter Summary ---
Author Organization [facility] Address [address] [place] [address] Care Team Providers Care Top Frame Fitter Name Role Phone Akil Fink MD Primary Care Provider [phone] Shaikh TAD Tamayo Unavailable [phone] Tran Su BIOINFORMATICS DEVELOPER-FLY FRAME TENDER Unavailable Laxmi Hdz CHAINSTITCH ELASTIC ATTACHER Unavailable Unavailable Theodora Mitchell NP Unavailable [phone] Laura Barger CHAINSTITCH ELASTIC ATTACHER Unavailable Mary Bain MA Unavailable [phone] Encounter Details Date Type Department Care Team (Late st Contact Info) Description 09/24/2023 Abstract [facility] [address] [place] [address] Theodora Mitchell NP [address] [facility] [place] [address] Social History Tobacco Use Types Packs/Day Years Used Date Smoking Tobacco: Every Day Cigarettes Passive Smoke Exposure: Never Smokeless Tobacco: Never Tobacco Cessation:Ready to Q uit: Not Asked; Counseling Given: Not Answered Alcohol Use Standard Drinks/Week Comments Never 0 [...] 09/24/2023 How often do you attend chur or sikhism services? Never 09/24/2023 Do you belong to any clubs o r organizations such as caodaism groups, unions, fraternal or athletic groups, or [...] Answer Date Recorded Patient Health Questionnaire-2 Score 1 09/25/2023 [facility] [place] [facility] Occupat ional Health - Occupational Stress [...] place to sleep or slept in a jail (including now)? No 09/24/2023 Sex and Gender Information Value Date Recorded Sex Assigned at Not on file Legal Sex Male 6:52 PM EDT Gender Identity Not on file Sexual Orientation Not on file documented as of this encounter Functional Status * AUDIT-C Score Answer Date of Assessment Author 1 09/24/2023 6:56 PM EST Mychart, Generic * Q1: How often do you have a drink containing alcohol? Answer Date of Assessment Author Monthly or less 09/24/2023 6:56 PM EST Mychart, Generic * Q2: How many drinks containing alcohol do you have on a typical day when you are drinking? Answer Date of Assessment Author 1 or 2 09/24/2023 6:56 PM EST Mychart, Generic * Q3: How often do you have six or more drinks on one occasion? Answer Date of Assessment Author Never 09/24/2023 6:56 PM EST Mychart, Generic * Over the past 2 weeks, how often have you been bothered by any of the following problems? Question Answer Date of Assessment Author Little interest or pleasure in doing things Several days 09/25/2023 10:44 AM Danielle Hubbard MA Feeling down, depressed, or hopeless Not at all 09/25/2023 10:44 AM Jeb Hubbard MA Patient Health Questionnaire-2 Score 1 09/25/2023 10:44 AM Mirna Hubbard MA * How difficult have these problems made it for you to do your work, take care of things at home, or get along with other people? Answer Date of Assessment Author Not difficult at all 09/25/2023 10:44 AM Danielle Mcghee MA documented as of this encounter Plan of Treatment Not on file documented as of this encounter Visit Diagnoses Not on filedocumented in this encounter Care Teams Top Frame Fitter Relationship Specialty Start Date End Date Akil Fink MD PCP - General Family Medicine 09/25/23 Tran Su, BIOINFORMATICS DEVELOPER-FLY FRAME TENDER [address] [place] [address] PCP - Kendrick PACK 08/04/23 02/01/24 Theodora Mitchlel NP [address] [facility] [place] [address] PCP - Kendrick PACK 02/02/24 Shaikh Tamayo MD Referring Physician Internal Medicine 09/25/23 Laxmi Hdz LPN Licensed Practical Nurse Family Medicine 12/23/23 Laura Barger LPN [address] [place] [address] Licensed Practical Nurse Family Medicine 04/16/2406/04 Mary Bain, SIRENA [address] [place] [address] Family Medicine 06/15/24 03/29/25 documented as of this encounter
--- OUTSIDE RECORDS SUMMARY | 2025-05-16 06:33 | XMS_ITS | CCD ---
Author Organization [facility] Care Team Providers Care Associate Software Developer Name Role Phone JUSTIN CEDENO Attending Unavailable JUSTIN CEDENO Admitting Unavailable DR RENARD PORTILLO Consulting Unavailable REQUEST, NONE LISTED Primary Care Unavaila ble RIVER RENEE Consulting Unavailable EULA, NORMAN Consulting Unavailable REQUEST, NONE LISTED Primary Care Unavaila ble EULA, NORMAN Admitting Unavailable EULA, NORMAN Attending Unavailable EULA, NORMAN Consulting Unavailable EULA, ONRMAN Primary Care Unavailable EULA, NORMAN Admitting Unavailable EULA, NORMAN Attending Unavailable Florentin Valiente Unavailable LUIS RIVERA Attending Unavailable NO PCP, NO PCP Primary Care Unavailable Akil Fink MD Primary Care Provider [phone] Roni MISHRA, Unavailable Stephen TOOL AND MACHINE MAINTAINER, Theodora Unavailable Laura Barger LPN Unavailable Unavailable Mary Bain MA Unavailable Unavailable Andreina Pranav HAMLINdastormy Unavailable Unavailable No Pcp, No Pcp Primary Care Provider Unavailabl e AICHBARBARAZ, THEODORA Attending Unavailable AICHHOLZ, THEODORA Attending Unavailable AICHHOLZ, THEODORA Attending Unavailable AICHHOLZ, THEODORA Attending Unavailable AICHHOLZ, THEODORA Attending Unavailable Mary Bain MA Unavailable Allergies Allergy Classification Reported Allergen(s) Allergy Type Date of Onset Reaction(s) Facility (2 sources) Codeine; Translations: [CODEINE] Drug Allergy 01-24-20 22 [facility] Repository (17 sources) Codeine Drug Allergy 11-11-19 Other, Itching [facility] Other (16 sources) Aspirin; Translations: [ASPIRIN] Drug Allergy 12-19-19 23 Swelling [facility] Repository (14 sources) Cortisone Drug Allergy 03-07-19 99 Anxiety, Other, Dizziness [facility] (14 sources) Ibuprofen Drug Allergy 11-11-19 02 GI intolerance [facility] (14 sources) Other Propensity to adverse reactions 03-12-20 10 Nausea And Vomiting [facility] (3 sources) Sulfonamides (Antibiotic) Propensity to adverse reactions 03-12-20 10 Nausea And Vomiting [facility] Medications Current Medications Medication Drug Class(es) Dates Sig (Normalized) Sig (Original) [id number] 200 actuat albuterol 0.09 mg/actuat metered dose inhaler (18 sources) beta2-Adrenergic Agonist Start: 03-15-2024 take 2 puff(s) by inhalation every six hours for wheezing albuterol HFA 90 mcg/act inhaler Inhale 2 puffs every 6 (six) hours if needed for shortness of breath or wheezing 03/15/2024 Active Start: 12-04-2023 albuterol (PRO VENTIL HFA;VENTOLIN HFA) 90 mcg/actuation inhaler 12/04/2023 Active Start: 12-01-2023 End: 03-30-2024 take 2 puff(s) by inhalation every six hours as needed for wheezing albuterol (ProAir RespiClick) 90 mcg/act breath-activated inhaler Indications: COPD mixed type (CMS/HCC) 2 puffs every 6 hours as needed for wheezing or shortness of breath 1 each 1 12/01/2023 03/30/2024 Discontinued (Cost of medication) Start: 12-01-2023 PROAIR RESPICL ICK 90 mcg/actuation aerosol powdr breath activated 2 puffs every 6 hours as needed for wheezing or shortness of breath 12/01/2023 Active amitriptyline hydrochloride 75 mg oral tablet (1 source) Tricyclic Antidepressant Start: 06-12-2023 amitriptyline (ELAVIL) 75 mg tablet Indications: Fibromyalgia One capsule at 8 PM each night 90 tablet 1 06/12/2023 Active Aspirin (2 sources) Platelet Aggregation Inhibitor, Nonsteroidal Anti-inflammatory Drug 12 hr buPROPion hydrochloride 150 mg extended release oral tablet (5 sources) Aminoketone Start: 05-24-2024 End: 06-22-2024 buPROPion SR (Wellbutrin SR) 150 MG 12 hr tablet Indications: Tobacco use Start with 1 pill daily for 3 days, then increase to twice a day. Do not crush, chew, or split. 60 tablet 1 05/24/2024 06/22/2024 Discontinued (Therapy completed) ciclopirox 10 mg/ml medicated shampoo (14 sources) Start: 12-16-2024 Ciclopirox 1 % shampoo Indications: Other seborrheic dermatitis LATHER ON WET HAIR LEAVE ON FOR 5 MINUTES THEN RINSE USE 2-3 TIMES A WEEK 120 mL 3 12/16/2024 Active Start: 07-03-2023 Ciclopirox 1 % shampoo Indications: Other seborrheic dermatitis Lather on wet hair, leave on 5 min, rinse 2-3 x week, 30 day supply 120 mL 11 07/03/2023 Active 30 actuat fluticasone furoate 0.1 mg/actuat / umeclidinium 0.0625 mg/actuat / vilanterol 0.025 mg/actuat dry powder inhaler (15 sources) Anticholinergic, Corticosteroid, beta2-Adrenergic Agonist Start: 12-01-2023 End: 03-20-2025 take 1 puff(s) by mouth once daily Aasdyppgzud-Jzmqarrrx-Gdhuwd (Trelegy Ellipta) 100-62.5-25 MCG/ACT aerosol powder Indications: COPD mixed type (HCC) Inhale 1 puff Daily Rinse mouth after use 1 each 5 02/18/2025 03/20/2025 Active gabapentin 300 mg oral capsule (2 sources) Anti-epileptic Agent take 1 capsule by mouth every eight hours ketoconazole 20 mg/ml medicated shampoo (14 sources) Azole Antifungal Start: 03-06-2022 ketoconazole (NIZOral) 2 % shampoo lather onto face and scalp, leave on 5 minutes then rinse topically 3-5 times weekly as needed for 30 day(s) 03/06/2022 Active metroNIDAZOLE 0.0075 mg/mg topical gel (10 sources) Nitroimidazole Antimicrobial Start: 04-28-2024 End: 12-02-2024 metroNIDAZOLE (Metrogel) 0.7 5 % gel Apply topically 04/28/2024 12/02/2024 Discontinued (Ineffective) pregabalin 150 mg oral capsule (1 source) Start: 06-12-2023 pregabalin (LYRICA) 150 mg capsule Indications: Fibromyalgia One capsule twice daily 180 capsule 1 06/12/2023 Active rosuvastatin calcium 20 mg oral tablet (2 sources) HMG-CoA Reductase Inhibitor take 1 tablet by mouth every twenty-fo ur hours Spiriva Respimat 2.5 mcg/actuation (1 source) tiZANidine 4 mg oral tablet (1 source) Central alpha-2 Adrenergic Agonist Start: 06-12-2023 tiZANidine (ZANAFLEX) 4 mg tablet Indications: Fibromyalgia One and half tab at 8:00 p.m.each night 135 tablet 1 06/12/2023 Active triamcinolone acetonide 1 mg/ml topical cream (2 sources) Corticosteroid Start: 06-19-2021 Problems Active Problems Problem Classification Problem Date Documented Da te Episodic/Chronic Acute cerebrovascular disease (14 sources) Cerebrovascular accident; Translations: [Cerebral infarction, unspecified] Onset: 09-25-2023 09-25-2023 Chronic Allergic reactions (3 sources) Atopic dermatitis; Translations: [Atopic dermatitis, unspecified] Onset: 06-19-2021 Resolved: 06-19-2021 Chronic Chronic obstructive pulmonary disease and bronchiectasis (20 sources) Chronic obstructive pulmonary disease with (acute) exacerbation; Translations: [Chronic obstructive lung disease] Onset: 06-20-2021 Resolved: 06-20-2021 Chronic Disorders of lipid metabolism (19 sources) Mixed hyperlipidemia; Translations: [Mixed hyperlipidemia] Onset: 06-19-2021 Resolved: 06-19-2021 Chronic Other connective tissue disease (4 sources) Fibromyalgia; Translations: [FIBROMYALGIA] Onset: 12-18-2021 Episodic Other ear and sense organ disorders (14 sources) Sensorineural hearing loss, bilateral; Translations: [Sensorineural hearing loss, bilateral] Onset: 09-25-2023 09-25-2023 Chronic Other gastrointestinal disorders (4 sources) Constipation, unspecified; Translations: [CONSTIPATION UNSPECIFIED] Onset: 01-23-2022 Episodic Other inflammatory condition of skin (16 sources) Rosacea; Translations: [Rosacea, unspecified] Onset: 01-21-2024 01-21-2024 Chronic Other lower respiratory disease (1 source) Shortness of breath; Translations: [SHORTNESS OF BREATH] Onset: 01-24-2022 Episodic Other nervous system disorders (14 sources) Lumbosacral plexus neuropathy; Translations: [Lumbosacral plexus disorders] Onset: 10-29-2023 10-29-2023 Chronic Other nervous system disorders (17 sources) Chronic pain syndrome; Translations: [Chronic pain syndrome] Onset: 03-30-2024 03-30-2024 Chronic Other nutritional; endocrine; and metabolic disorders (20 sources) Body mass index 30+ - obesity; Translations: [Obesity, unspecified] Onset: 12-01-2023 12-01-2023 Chronic Residual codes; unclassified (5 sources) Colon cancer screening declined; Translations: [Procedure and treatment not carried out because of patient's decision for unspecified reasons] Onset: 12-02-2024 12-02-2024 Episodic Residual codes; unclassified (5 sources) Prostate cancer screening declined; Translations: [Procedure and treatment not carried out because of patient's decision for unspecified reasons] Onset: 12-02-2024 12-02-2024 Episodic Substance-related disorders (10 sources) Nicotine dependence, cigarettes, uncomplicated; Translations: [Smoker] Onset: 01-24-2022 10-09-2022 Chronic Viral infection (1 source) COVID-19; Translations: [COVID-19] Onset: 01-24-2022 Past or Other Problems Problem Classification Problem Date Documented Date Episodic/Chronic Immunizations and screening for infectious disease (15 sources) Anti-nuclear factor positive; Translations: [Other specified abnormal immunological findings in serum] Onset: 10-09-2022 09-25-2023 Episodic Mood disorders (14 sources) Mood disorders Onset: 12-01-2023 Resolved: 12-02-2024 12-01-2023 Other connective tissue disease (16 sources) Fibromyalgia; Translations: [Fibromyalgia] Onset: 10-09-2022 09-25-2023 Episodic Other ear and sense organ disorders (14 sources) Tinnitus of left ear; Translations: [Tinnitus, left ear] Onset: 09-25-2023 09-25-2023 Episodic Other injuries and conditions due to external causes (14 sources) History of traumatic vertebral fracture; Translations: [Personal history of (healed) traumatic fracture] Onset: 09-25-2023 4 Episodic Other lower respiratory disease (13 sources) Solitary nodule of lung; Translations: [Solitary pulmonary nodule] Onset: 03-30-2024 03-30-2024 Episodic Other nervous system disorders (1 source) Cold feet; Translations: [Unspecified disturbances of skin sensation] Onset: 10-09-2022 10-09-2022 Episodic Other nutritional; endocrine; and metabolic disorders (16 sources) Overweight in adulthood with body mass index of 25 or more but less than 30; Translations: [Body mass index (BMI) 29.0-29.9, adult] Onset: 09-25-2023 Resolved: 06-22-2024 09-25-2023 Episodic Other screening for suspected conditions (not mental disorders or infectious disease) (20 sources) Elevated prostate specific antigen [PSA]; Translations: [Raised prostate specific antigen] Onset: 06-19-2021 Resolved: 12-02-2024 Episodic Residual codes; unclassified (20 sources) Tobacco use and exposure - finding; Translations: [Tobacco use] Onset: 09-25-2023 Resolved: 12-02-2024 05-24-2024 Episodic Spondylosis; intervertebral disc disorders; other back problems (20 sources) Neck pain; Translations: [Cervicalgia] Onset: 09-25-2023 Resolved: 03-30-2024 09-25-2023 Episodic Unclassified (14 sources) Onset: 12-24-2023 Resolved: 12-02-2024 12-24-2023 Results Test Name Value Interpretation Reference Range Facility BNPon 01-23-2022 Natriuretic peptide B (Bld) [Mass/Vol] 115.0 pg/mL Normal <=900.0 [facility] Comment on above: Performed By: #### C MP, TSH, HSTROPN, BNP, LIPA #### [facility] [address] [address] [address] Ling Cifuentes CBC AUTO DIFFon 01-23-2022 BASO # 0.0 103/ul Normal 0.0-0.1 [facility] Comment on above: Performed By: #### I NFLUAB #### [facility] [address] [address] [address] Ling Cifuentes Basophils/100 WBC (Bld) 0.2 % Normal 0.2-2.0 [facility] Comment on above: Performed By: #### I NFLUAB #### [facility] [address] [place] [address] Dr. Ling Cifuentes EO # 0.0 103/ul Normal 0.0-0.7 [facility] Comment on above: Performed By: #### I NFLUAB #### [facility] [address] [place] [address] Dr. Ling Cifuentes Eosinophils/100 WBC (Bld) 0.6 % Critically low 0.9-7.0 [facility] Comment on above: Performed By: #### I NFLUAB #### [facility] [address] [place] [address] Dr. Ling Cifuentes Erythrocyte distribution width (RBC) [Ratio] 14.1 % Normal 11.0-15.0 [facility] Comment on above: Performed By: #### I NFLUAB #### [facility] [address] [place] [address] Dr. Ling Cifuentes Hematocrit (Bld) [Volume fraction] 39.8 % Critically low 42.0-54.0 [facility] Comment on above: Performed By: #### I NFLUAB #### [facility] [address] [place] [address] Dr. Ling Cifuentes Hemoglobin (Bld) [Mass/Vol] 13.4 g/dL Critically low 14.0-18.0 [facility] Comment on above: Performed By: #### I NFLUAB #### [facility] [address] [place] [address] Dr. Ling Cifuentes IG # 0.01 10e3/ul Normal 0.00-0.03 [facility] Comment on above: Performed By: #### I NFLUAB #### [facility] [address] [place] [address] Dr. Ling Cifuentes IG % 0.2 % Normal 0.0-0.5 [facility] Comment on above: Performed By: #### I NFLUAB #### [facility] [address] [place] [address] Dr. Ling Cifuentes LYMPH # 1.3 103/ul Normal 1.2-3.8 [facility] Comment on above: Performed By: #### I NFLUAB #### [facility] [address] [place] [address] Dr. Ling Cifuentes Lymphocytes/100 WBC (Bld) 27.2 % Normal 20.5-60.0 [facility] Comment on above: Performed By: #### I NFLUAB #### [facility] [address] [place] [address] Dr. Ling Cifuentes MANUAL DIFF REQ NO Normal [facility] Comment on above: Performed By: #### I NFLUAB #### [facility] [address] [place] [address] Dr. Ling Cifuentes MCH (RBC) [Entitic mass] 30.7 pg Normal 25.9-34.0 [facility] Comment on above: Performed By: #### I NFLUAB #### [facility] [address] [place] [address] Dr. Ling Cifuentes MCHC (RBC) [Mass/Vol] 33.7 g/dL Normal 29.9-35.2 [facility] Comment on above: Performed By: #### I NFLUAB #### [facility] [address] [place] [address] Dr. Ling Cifuentes MCV (RBC) [Entitic vol] 91.1 fL Normal 80.0-94.0 [facility] Comment on above: Performed By: #### I NFLUAB #### [facility] [address] [place] [address] Dr. Ling Cifuentes MONO # 0.5 103/ul Normal 0.3-0.8 [facility] Comment on above: Performed By: #### I NFLUAB #### [facility] [address] [place] [address] Dr. Ling Cifuentes Monocytes/100 WBC (Bld) 10.7 % Normal 1.7-12.0 [facility] Comment on above: Performed By: #### I NFLUAB #### [facility] [address] [address] [address] Ling Cifuentes NEUT # 2.9 103/ul Normal 1.4-6.5 [facility] Comment on above: Performed By: #### I NFLUAB #### [facility] [address] [place] [address] Dr. Ling Cifuentes Neutrophils/100 WBC (Bld) 61.1 % Normal 43.0-75.0 [facility] Comment on above: Performed By: #### I NFLUAB #### [facility] [address] [place] [address] Dr. Ling Cifuentes Platelet mean volume (Bld) [Entitic vol] 9.7 fL Normal 9.5-13.5 [facility] Comment on above: Performed By: #### I NFLUAB #### [facility] [address] [place] [address] Dr. Ling Cifuentes PLT 157 103/ul Normal 150-450 [facility] Comment on above: Performed By: #### I NFLUAB #### [facility] [address] [place] [address] Dr. Ling Cifuentes RBC 4.37 106/ul Critically low 4.70-6.10 [facility] Comment on above: Performed By: #### I NFLUAB #### [facility] [address] [place] [address] Dr. Ling Cifuentes WBC 4.8 103/ul Normal 4.0-11.0 [facility] Comment on above: Performed By: #### I NFLUAB #### [facility] [address] [place] [address] Dr. Ling Cifuentes Covid-19 PCR (CVDTB)on 01-03 SARS-CoV-2 (COVID-19) RNA JAYME+probe Ql (Unsp spec) Detected Critically abnormal NOT DETECTED [facility] Comment on above: Result Comment: This test is not yet approved or cleared by the [place] FDA. When there are no FDA-approved or cleared tests available, and other criteria are met, FDA can make tests available under an emergency access mechanism called an Emergency Use Authorization (EUA). The EUA for this test is supported by the [employer] of Health and Human Service's declaration that [...] used). Performed By: #### C VDTB #### [facility] [address] [place] [address] Dr. Ling Cifuentes ER URINE PROFILEon 2 Bilirubin Ql (U) Negative Normal NEGATIVE [facility] Comment on above: Performed By: #### E RUR #### [facility] [address] [place] [address] Dr. Ling Cifuentes Clarity (U) CLEAR Normal CLEAR [facility] Comment on above: Performed By: #### E RUR #### [facility] [address] [place] [address] Dr. Ling Cifuentes Color (U) YELLOW Normal YELLOW [facility] Comment on above: Performed By: #### E RUR #### [facility] [address] [place] [address] Dr. Ling MOSER A micrscopic examination will be performed if indicated. Normal [facility] Comment on above: Performed By: #### E RUR #### [facility] [address] [place] [address] Dr. Ling Cifuentes Glucose Ql (U) Negative Normal NEGATIVE [facility] Comment on above: Performed By: #### E RUR #### [facility] [address] [place] [address] Dr. Ling Cifuentes Hemoglobin Ql (U) Negative Normal NEGATIVE [facility] Comment on above: Performed By: #### E RUR #### [facility] [address] [place] [address] Dr. Ling Cifuentes Ketones Ql (U) TRACE Abnormal NEGATIVE [facility] Comment on above: Performed By: #### E RUR #### [facility] [address] [place] [address] Dr. Ling Cifuentes LEUKOCYTES Negative Normal NEGATIVE [facility] Comment on above: Performed By: #### E RUR #### [facility] [address] [place] [address] Dr. Ling Cifuentes Nitrite Ql (U) Negative Normal NEGATIVE [facility] Comment on above: Performed By: #### E RUR #### [facility] [address] [place] [address] Dr. Ling Cifuentes pH (U) 5.5 [pH] Normal 5-9 [facility] Comment on above: Performed By: #### E RUR #### [facility] [address] [place] [address] Dr. Ling Cifuentes SPEC GRAVITY 1.025 Normal 1.005-<=1.025 [facility] Comment on above: Performed By: #### E RUR #### [facility] [address] [place] [address] Dr. Ling Cifuentes UA PROTEIN Negative Normal NEGATIVE/ TRACE [facility] Comment on above: Performed By: #### E RUR #### [facility] [address] [place] [address] Dr. Ling Cifuentes UR MICRO IND NOT INDICATED Normal [facility] Comment on above: Performed By: #### E RUR #### [facility] [address] [place] [address] Dr. Ling Cifuentes Urobilinogen Qn (U) 0.2 {Kranthi'U}/dL Normal 0.2 - 1. 0 [facility] Comment on above: Performed By: #### E RUR #### [facility] [address] [place] [address] Dr. Ling Cifuentes INFLUENZA A AND B AGon 01-23 INFLUANEGH SEE BELOW Normal [facility] Comment on above: Result Comment: Nega tive for Flu A protein angiten. Infection due to Flu A cannot be ruled out. Flu A angiten in the sample may be below the detection limit of the test. Performed By: #### I NFLUAB #### [facility] [address] [place] [address] Dr. Ling Cifuentes [facility] SEE BELOW Normal [facility] Comment on above: Result Comment: Nega tive for Flu B protein antigen. Infection due to Flu B cannot be ruled out. Flu B antigen in the sample may be below the detection limit of the test. Performed By: #### I NFLUAB #### [facility] [address] [place] [address] Dr. Ling Cifuentes INFLUENZA A AG Negative Normal NEGATIVE SEE COMMENT [facility] Comment on above: Performed By: #### I NFLUAB #### [facility] [address] [place] [address] Dr. Ling Cifuentes INFLUENZA B AG Negative Normal NEGATIVE SEE COMMENT [facility] Comment on above: Performed By: #### I NFLUAB #### [facility] [address] [place] [address] Dr. Ling Cifuentes INTERNAL CONTROLS Within Normal Limits Normal Within Normal Limits [facility] Comment on above: Performed By: #### I NFLUAB #### [facility] [address] [place] [address] Dr. Ling Cifuentes LACTATE/LACTIC ACIDon 2021 Lactate [Moles/Vol] 0.5 mmol/L Normal 0.4-1.9 [facility] Comment on above: Performed By: #### I NFLUAB #### [facility] [address] [place] [address] Dr. Ling Cifuentes LIPASEon 01-23-2022 Lipase [Catalytic activity/Vol] 91.0 U/L Normal 73.0-393.0 [facility] Comment on above: Performed By: #### C MP, TSH, HSTROPN, BNP, LIPA #### [facility] [address] [place] [address] Dr. Ling Cifuentes PROF 14(COMP METB)on 022 Albumin [Mass/Vol] 3.4 g/dL Normal 3.4-5.0 [facility] Comment on above: Performed By: #### C MP, TSH, HSTROPN, BNP, LIPA #### [facility] [address] [place] [address] Dr. Ling Cifuentes Albumin/Globulin [Mass ratio] 1.0 {ratio} Normal [facility] Comment on above: Performed By: #### C MP, TSH, HSTROPN, BNP, LIPA #### [facility] [address] [place] [address] Dr. Ling Cifuentes ALP [Catalytic activity/Vol] 58 U/L Normal 46-116 [facility] Comment on above: Performed By: #### C MP, TSH, HSTROPN, BNP, LIPA #### [facility] [address] [place] [address] Dr. Ling Cifuentes ALT [Catalytic activity/Vol] 22 U/L Normal 16-63 [facility] Comment on above: Performed By: #### C MP, TSH, HSTROPN, BNP, LIPA #### [facility] [address] [place] [address] Dr. Ling Cifuentes Anion gap [Moles/Vol] 12.8 mmol/L Normal [facility] Comment on above: Performed By: #### C MP, TSH, HSTROPN, BNP, LIPA #### [facility] [address] [place] [address] Dr. Ling Cifuentes AST [Catalytic activity/Vol] 18 U/L Normal 15-37 [facility] Comment on above: Performed By: #### C MP, TSH, HSTROPN, BNP, LIPA #### [facility] [address] [place] [address] Dr. Ling Cifuentes Bilirubin [Mass/Vol] 0.6 mg/dL Normal 0.2-1.0 [facility] Comment on above: Performed By: #### C MP, TSH, HSTROPN, BNP, LIPA #### [facility] [address] [place] [address] Dr. Ling Cifuentes Calcium [Mass/Vol] 8.4 mg/dL Critically low 8.5-10.1 [facility] Comment on above: Performed By: #### C MP, TSH, HSTROPN, BNP, LIPA #### [facility] [address] [place] [address] Dr. Ling Cifuentes Chloride [Moles/Vol] 100 mmol/L Normal 98-107 [facility] Comment on above: Performed By: #### C MP, TSH, HSTROPN, BNP, LIPA #### [facility] [address] [place] [address] Dr. Ling Cifuentes CO2 [Moles/Vol] 25.8 mmol/L Normal 21.0-32.0 [facility] Comment on above: Performed By: #### C MP, TSH, HSTROPN, BNP, LIPA #### [facility] [address] [place] [address] Dr. Ling Cifuentes Creatinine [Mass/Vol] 0.84 mg/dL Normal 0.70-1.30 [facility] Comment on above: Performed By: #### C MP, TSH, HSTROPN, BNP, LIPA #### [facility] [address] [place] [address] Dr. Ling Cifuentes EGFR-AF BERMUDIAN >60 Normal >=60 [facility] Comment on above: Performed By: #### C MP, TSH, HSTROPN, BNP, LIPA #### [facility] [address] [place] [address] Dr. Ling Cifuentes EGFR-NON AF BERMUDIAN >60 Normal >=60 [facility] Comment on above: Performed By: #### C MP, TSH, HSTROPN, BNP, LIPA #### [facility] [address] [place] [address] Dr. Ling Cifuentes Globulin (S) [Mass/Vol] 3.3 g/dL Normal T [facility] Comment on above: Performed By: #### C MP, TSH, HSTROPN, BNP, LIPA #### [facility] [address] [place] [address] Dr. Ling Cifuentes Glucose [Mass/Vol] 100 mg/dL Normal 74-106 [facility] Comment on above: Performed By: #### C MP, TSH, HSTROPN, BNP, LIPA #### [facility] [address] [place] [address] Dr. Ling Cifuentes Potassium [Moles/Vol] 3.6 mmol/L Normal 3.5-5.1 [facility] Comment on above: Performed By: #### C MP, TSH, HSTROPN, BNP, LIPA #### [facility] [address] [place] [address] Dr. Ling Cifuentes Protein [Mass/Vol] 6.7 g/dL Normal 6.4-8.2 [facility] Comment on above: Performed By: #### C MP, TSH, HSTROPN, BNP, LIPA #### [facility] [address] [place] [address] Dr. Ling Cifuentes Sodium [Moles/Vol] 135 mmol/L Critically low 136-145 [facility] Comment on above: Performed By: #### C MP, TSH, HSTROPN, BNP, LIPA #### [facility] [address] [place] [address] Dr. Ling Cifuentes Urea nitrogen [Mass/Vol] 14.0 mg/dL Normal 7.0-18.0 [facility] Comment on above: Performed By: #### C MP, TSH, HSTROPN, BNP, LIPA #### [facility] [address] [place] [address] Dr. Ling Cifuentes Urea nitrogen/Creatinine [Mass ratio] 16.7 mg/mg Normal [facility] Comment on above: Performed By: #### C MP, TSH, HSTROPN, BNP, LIPA #### [facility] [address] [place] [address] Dr. Ling Cifuentes TROPONIN, HIGH SENSITIVITYon 01-23-2022 HSTROP 11.6 pg/mL Normal 4.0-76.1 [facility] Comment on above: Result Comment: CUT- OFF POINTS HAVE BEEN ESTABLISHED BASED ON THE FOURTH UNIVERSAL DEFINITIONS OF MYOCARDIAL INFARCTION. THE UPPER REFERENCE LIMIT (URL) OF TROPONIN, DEFINED THE 99TH PERCENTILE OF cTnI DISTRIBUTION IN A REFERENCE POPULATION, HAS BEEN CONFIRMED THE DECISION THRESHOLD FOR MT DIAGNOSIS. Performed By: #### C MP, TSH, HSTROPN, BNP, LIPA #### [facility] [address] [place], [place] [id number] Dr. Ling Cifuentes TSHon 01-23-2022 TSH 0.870 uIU/mL Normal 0.358-3.740 [facility] Comment on above: Performed By: #### C MP, TSH, HSTROPN, BNP, LIPA #### [facility] [address] [place] [address] Dr. Ling Cifuentes XR ABD FLAT UP_PA [...] RENARD PORTILLO Date: 2022-01-23 17:11 Normal [facility] ANTI NEUTROPHIL CYTOPLASMIC AB (ANCA) PRon 12-20-2021 Antimyeloperoxidase (MPO) Abs <9.0 Normal 0.0-9.0 [facility] Comment on above: Result Comment: Perf ormed at: BN Performed By: #### I NFLUAB #### [facility] [address] [place] [address] Dr. Ling Cifuentes Antiproteinase 3 (MA-3) Abs <3.5 Normal 0.0-3.5 [facility] Comment on above: Result Comment: Perf ormed at: BN Performed By: #### I NFLUAB #### [facility] [address] [place] [address] Dr. Ling Cifuentes Atypical pANCA <1:20 Normal Neg:<1:20 [facility] Comment on above: Result Comment: The atypical pANCA pattern has been observed in a significant percentage of patients with ulcerative colitis, primary sclerosing cholangitis and autoimmune hepatitis. Performed at: CB Performed By: #### I NFLUAB #### [facility] [address] [address] [address] Ling Cifuentes Cytoplasmic (C-ANCA) <1:20 Normal Neg:<1:20 [facility] Comment on above: Result Comment: Perf ormed at: CB Performed By: #### I NFLUAB #### [facility] [address] [place] [address] Dr. Ling Cifuentes Perinuclear (P-ANCA) <1:20 Normal Neg:<1:20 [facility] Comment on above: Result Comment: The presence of positive fluorescence exhibiting P-ANCA or C-ANCA patterns alone is not specific for the diagnosis of Erasmo's Granulomatosis (WG) or microscopic polyangiitis. Decisions about treatment should not be based solely on ANCA IFA results. The International ANCA Group Consensus recommends follow up testing of positive sera with both MA-3 and MPO-ANCA enzyme immunoassays. As many as 5% serum samples are positive only by EIA. Ref. AM J Clin Pathol 1999;111:507-513. Performed at: CB Performed By: #### I NFLUAB #### [facility] [address] [place] [address] Dr. Ling Cifuentes PASCUAL EIA W/REFLEX 5 BIOMARKER Son 12-11-2021 PASCUAL Direct Negative Normal Negative [facility] Comment on above: Performed By: #### I NFLUAB #### [facility] [address] [place] [address] Dr. Ling Cifuentes RHEUMATOID FACTORon 12-12-19 22 RA Latex Turbid. <10.0 Normal <14.0 [facility] Comment on above: Performed By: #### R F #### [facility] [address] [place] [address] Dr. Ling Cifuentes VITAMIN B12on 12-11-2021 Cobalamin (Vitamin B12) [Mass/Vol] 378 pg/mL Normal 232-1245 [facility] Comment on above: Performed By: #### I NFLUAB #### [facility] [address] [place] [address] Dr. Ling Cifuentes CBC AUTO DIFFon 12-10-2021 BASO # 0.0 103/ul Normal 0.0-0.1 [facility] Comment on above: Performed By: #### C BC #### [facility] [address] [address] [address] Ling Cifuentes Basophils/100 WBC (Bld) 0.4 % Normal 0.2-2.0 [facility] Comment on above: Performed By: #### C BC #### [facility] [address] [address] [address] Ling Cifuentes EO # 0.1 103/ul Normal 0.0-0.7 [facility] Comment on above: Performed By: #### C BC #### [facility] [address] [place] [address] Dr. Ling Cifuentes Eosinophils/100 WBC (Bld) 0.8 % Critically low 0.9-7.0 [facility] Comment on above: Performed By: #### C BC #### [facility] [address] [place] [address] Dr. Ling Cifuentes Erythrocyte distribution width (RBC) [Ratio] 12.9 % Normal 11.0-15.0 [facility] Comment on above: Performed By: #### C BC #### [facility] [address] [place] [address] Dr. Ling Cifuentes Hematocrit (Bld) [Volume fraction] 46.2 % Normal 42.0-54.0 [facility] Comment on above: Performed By: #### C BC #### [facility] [address] [place] [address] Dr. Ling Cifuentes Hemoglobin (Bld) [Mass/Vol] 15.3 g/dL Normal 14.0-18.0 [facility] Comment on above: Performed By: #### C BC #### [facility] [address] [place] [address] Dr. Ling Cifuentes IG # 0.06 10e3/ul Critically high 0.00-0.03 [facility] Comment on above: Performed By: #### C BC #### [facility] [address] [place] [address] Dr. Ling Cifuentes IG % 0.6 % Critically high 0.0-0.5 [facility] Comment on above: Performed By: #### C BC #### [facility] [address] [place] [address] Dr. Ling iCfuentes LYMPH # 2.3 103/ul Normal 1.2-3.8 [facility] Comment on above: Performed By: #### C BC #### [facility] [address] [place] [address] Dr. iLng Cifuentes Lymphocytes/100 WBC (Bld) 21.3 % Normal 20.5-60.0 [facility] Comment on above: Performed By: #### C BC #### [facility] [address] [place] [address] Dr. Ling Cifuentes MANUAL DIFF REQ NO Normal [facility] Comment on above: Performed By: #### C BC #### [facility] [address] [place] [address] Dr. Ling Cifuentes MCH (RBC) [Entitic mass] 30.8 pg Normal 25.9-34.0 [facility] Comment on above: Performed By: #### C BC #### [facility] [address] [place] [address] Dr. Ling Cifuentes MCHC (RBC) [Mass/Vol] 33.1 g/dL Normal 29.9-35.2 [facility] Comment on above: Performed By: #### C BC #### [facility] [address] [place] [address] Dr. Ling Cifuentes MCV (RBC) [Entitic vol] 93.0 fL Normal 80.0-94.0 [facility] Comment on above: Performed By: #### C BC #### [facility] [address] [place] [address] Dr. Ling Cifuentes MONO # 0.8 103/ul Normal 0.3-0.8 [facility] Comment on above: Performed By: #### C BC #### [facility] [address] [place] [address] Dr. Ling Cifuentes Monocytes/100 WBC (Bld) 7.2 % Normal 1.7-12.0 [facility] Comment on above: Performed By: #### C BC #### [facility] [address] [address] [address] Ling Cifuentes NEUT # 7.4 103/ul Critically high 1.4-6.5 [facility] Comment on above: Performed By: #### C BC #### [facility] [address] [address] [address] Ling Cifuentes Neutrophils/100 WBC (Bld) 69.7 % Normal 43.0-75.0 [facility] Comment on above: Performed By: #### C BC #### [facility] [address] [address] [address] Ling Cifuentes Platelet mean volume (Bld) [Entitic vol] 8.6 fL Critically low 9.5-13.5 [facility] Comment on above: Performed By: #### C BC #### [facility] [address] [address] [address] Ling Cifuentes PLT 373 103/ul Normal 150-450 [facility] Comment on above: Performed By: #### C BC #### [facility] [address] [address] [address] Ling Cifuentes RBC 4.97 106/ul Normal 4.70-6.10 [facility] Comment on above: Performed By: #### C BC #### [facility] [address] [address] [address] Ling Cifuentes WBC 10.7 103/ul Normal 4.0-11.0 [facility] Comment on above: Performed By: #### C BC #### [facility] [address] [address] [address] Ling Cifuentes CRPon 12-10-2021 CRP 5.4 mg/dL Critically high <=1.0 [facility] Comment on above: Performed By: #### I NFLUAB #### [facility] [address] [address] [address] Ling Cifuentes PROF 14(COMP METB)on 022 Albumin [Mass/Vol] 3.6 g/dL Normal 3.4-5.0 [facility] Comment on above: Performed By: #### I NFLUAB #### [facility] [address] [address] [address] Ling Cifuentes Albumin/Globulin [Mass ratio] 0.9 {ratio} Normal [facility] Comment on above: Performed By: #### I NFLUAB #### [facility] [address] [address] [address] Ling Cifuentes ALP [Catalytic activity/Vol] 69 U/L Normal 46-116 [facility] Comment on above: Performed By: #### I NFLUAB #### [facility] [address] [address] [address] Ling Cifuentes ALT [Catalytic activity/Vol] 13 U/L Critically low 16-63 [facility] Comment on above: Performed By: #### I NFLUAB #### [facility] [address] [address] [address] Ling Cifuentes Anion gap [Moles/Vol] 12.2 mmol/L Normal [facility] Comment on above: Performed By: #### I NFLUAB #### [facility] [address] [address] [address] Ling Cifuentes AST [Catalytic activity/Vol] 11 U/L Critically low 15-37 [facility] Comment on above: Performed By: #### I NFLUAB #### [facility] [address] [address] [address] Ling Cifuentes Bilirubin [Mass/Vol] 0.8 mg/dL Normal 0.2-1.0 [facility] Comment on above: Performed By: #### I NFLUAB #### [facility] [address] [address] [address] Ling Cifuentes Calcium [Mass/Vol] 8.8 mg/dL Normal 8.5-10.1 [facility] Comment on above: Performed By: #### I NFLUAB #### [facility] [address] [address] [address] Ling Cifuentes Chloride [Moles/Vol] 99 mmol/L Normal 98-107 [facility] Comment on above: Performed By: #### I NFLUAB #### [facility] [address] [address] [address] Ling Cifuentes CO2 [Moles/Vol] 29.8 mmol/L Normal 21.0-32.0 [facility] Comment on above: Performed By: #### I NFLUAB #### [facility] [address] [address] [address] Ling Cifuentes Creatinine [Mass/Vol] 0.76 mg/dL Normal 0.70-1.30 [facility] Comment on above: Performed By: #### I NFLUAB #### [facility] [address] [address] [address] Ling Cifuentes EGFR-AF BERMUDIAN >60 Normal >=60 [facility] Comment on above: Performed By: #### I NFLUAB #### [facility] [address] [address] [address] Ling Cifuentes EGFR-NON AF BERMUDIAN >60 Normal >=60 [facility] Comment on above: Performed By: #### I NFLUAB #### [facility] [address] [address] [address] Ling Cifuentes Globulin (S) [Mass/Vol] 3.9 g/dL Normal T [facility] Comment on above: Performed By: #### I NFLUAB #### [facility] [address] [address] [address] Ling Cifuentes Glucose [Mass/Vol] 101 mg/dL Normal 74-106 [facility] Comment on above: Performed By: #### I NFLUAB #### [facility] [address] [address] [address] Ling Cifuentes Potassium [Moles/Vol] 4.0 mmol/L Normal 3.5-5.1 [facility] Comment on above: Performed By: #### I NFLUAB #### [facility] [address] [address] [address] Ling Cifuentes Protein [Mass/Vol] 7.5 g/dL Normal 6.4-8.2 [facility] Comment on above: Performed By: #### I NFLUAB #### [facility] [address] [address] [address] Ling Cifuentes Sodium [Moles/Vol] 137 mmol/L Normal 136-145 [facility] Comment on above: Performed By: #### I NFLUAB #### [facility] [address] [address] [address] Ling Cifuentes Urea nitrogen [Mass/Vol] 9.0 mg/dL Normal 7.0-18.0 [facility] Comment on above: Performed By: #### I NFLUAB #### [facility] [address] [address] [address] Ling Cifuentes Urea nitrogen/Creatinine [Mass ratio] 11.8 mg/mg Normal [facility] Comment on above: Performed By: #### I NFLUAB #### [facility] [address] [place] [address] Dr. Ling Cifuentes SED RATE [facility] 2021 SED RATE 51 mm/hr Critically high <=20 [facility] Comment on above: Performed By: #### I NFLUAB #### [facility] [address] [place] [address] Dr. Ling Cifuentes TSHon 12-10-2021 TSH 1.293 uIU/mL Normal 0.358-3.740 [facility] Comment on above: Performed By: #### I NFLUAB #### [facility] [address] [place] [address] Dr. Ling Cifuentes TSH RANGE SEE BELOW Normal [facility] Comment on above: Result Comment: <0.3 4 UIU/ml HYPERTHYROID 0.34-5.60 UIU/ml EUTHYROID >5.60 UIU/ml HYPOTHYROID Performed By: #### I NFLUAB #### [facility] [address] [place] [address] Dr. Ling Cifuentes Reminderson 11-06-2021 Reminders -- From: Theodora Martinez MA To: EU - Clinical; Sent: 07/17/2021 15:51:53 EST Show up: 10/02/2021 15:51:00 EST Subject: MRI In Spring Reminder Message MRI at [facility] Order will need resent for Precert Order faxed to [facility] Spoke to [facility] and MRI has not been approved yet patient is scheduled 10-31-21 @ 7:30am per [facility] CS Looked in clinisync no results yet. Pt canceled MRI of prostate on 10/23/21 stated from CS, and pt didn't want to reschedule Normal [facility] Pre-Certification Formon Pre-Certification Form [id number] E9#1.00CD:127 [facility] Reminderson 07-13-2021 Reminders -- From: Angie Doe MA To: EU - Clinical; Sent: 06/22/2021 14:06:02 EST Show up: 07/02/2021 07:00:00 EST Subject: scheduling MRI prostate Due Date/Time: 07/04/2021 07:00:00 EST Reminder/Recall Order for Prostate MRI has been sent to [facility]. They will precert and call pt to schedule. Please make sure Dr Rizvi sees the results. Thanks!! no results yet Spoke to [facility] CS and was told they called Pt. on Jul 03 and Pt. told them to call him back to schedule sometime this week. Spoke to [facility] and was told Pt. has not returned their phone calls to schedule. PT called [facility] CS and told them he did not want to get the MRI he wanted to wait. [facility] Pre-Certification Formon Pre-Certification Form [id number] 80#1.00CD:127 [facility] Lab Reportson 06-25-2021 Lab Reports [id number] 412#1.00CD:127 [facility] Lab Reports [id number] 71#1.00CD:127 Normal [facility] Physician Referralon 021 Physician Referral [id number] 178#1.00CD:127 Normal [facility] Patient Educationon 06-22-20 21 Patient Education [...] including vitamins, herbs, eye drops, creams, and vyen-jfv-zpoxtzr medicines. This also includes: ? Medicines to [...] 08/23/2005 Document Revised: 07/03/2018 Document Reviewed: 04/27/2018 Elsevier Patient Education ? 2020 [employer] Normal [facility] PSA Diagnostic (Total Free)o n 06-12-2021 Prostate Spec Ag, Free 0.750 ng/mL Normal [facility] [place] Comment on above: Order Comment: Reaso n for Exam Elevated PSA Performed By: #### P SATF #### [address] PSA Total (Not a Screen) 5.790 ng/mL High 0.000-4.000 [facility] Comment on above: Order Comment: Reaso n for Exam Elevated PSA Performed By: #### P SATF #### [address] PSA,FREE% 12.0 % Normal [facility] Comment on above: Order Comment: [...] 10% 20% >25 5% 9% PERFORMED BY: [place] [address] PATHOLOGIST [employer] LUDIN FITZGERALD M.D. Performed By: #### P SATF #### [address] Complete Pulmonary Functiono n 05-30-2021 Complete Pulmonary Function [facility] [place] [address] [place] [address] Pulmonary Function Signed Patient: Effie Chambers MR#: [id number] 8 : 1960 Acct:[id number] Age/Sex: 61 / M ADM Date: 05/25/21 Loc: RT [facility]: Florentin Valiente DO [...] FEV1/FVC ratio was markedly reduced to 37%. DTY66-47% was profoundly reduced to 0.42 L/sec, which [...] MD 05/30/21 0836 Signed By: 05/31/21 0832 [facility] Lipid Panelon 05-25-2021 Cholesterol [Mass/Vol] 246 mg/dL High 140-200 [facility] Comment on above: Order Comment: Reaso n for Exam Screening for cardiovascular condition Result Comment: Chol less than 200 mg/dl low risk Chol 201-239 mg/dl borderline risk Chol 240 mg/dl and greater high risk Performed By: #### P SAS, LIPID #### [address] Cholesterol in HDL [Mass/Vol] 44 mg/dL Normal 29-71 [facility] Comment on above: Order Comment: Reaso n for Exam Screening for cardiovascular condition Result Comment: HDL CHOL ATP-III CLASSIFICATION Cardiovascular Risk HDL > or equal to 60 mg/dL LOW HDL < 40 mg/dL HIGH Performed By: #### P SAS, LIPID #### [facility] [address] Cholesterol.total/Sarai sterol in HDL [Mass ratio] 5.6 {ratio} Normal <5.0 [facility] Comment on above: Order Comment: Reaso n for Exam Screening for cardiovascular condition Result Comment: PERF ORMED BY: [place] [address] PATHOLOGIST [employer]ER LUDIN FITZGERALD M.D. Performed By: #### P SAS, LIPID #### [facility] [address] LDL Cholesterol,Calculated 186 mg/dL High 0-100 [facility] Comment on above: Order Comment: Reaso n for Exam Screening for cardiovascular condition Result Comment: LDL ATP III CLASSIFICATION LDL less than 100 mg/dL Optimal LDL 100-129 mg/dL Near or above optimal LDL 130-159 mg/dL Borderline high LDL 160-189 mg/dL High LDL greater than 189 mg/dL Very high Performed By: #### P SAS, LIPID #### [facility] [address] Triglyceride w/Reflex 81 mg/dL Normal 35-149 [facility] Comment on above: Order Comment: Reaso n for Exam Screening for cardiovascular condition Result Comment: TRIG ATP III CLASSIFICATION TRIG less than 150 mg/dL Normal TRIG 150-199 mg/dL Borderline high TRIG 200-500 mg/dL High TRIG greater than 500 mg/dL Very high Standard traceable to the Center for Disease Conrtrol and Prevention (CDC) test method. Performed By: #### P SAS, LIPID #### [facility] [address] VLDL CHOLESTEROL 16 mg/dL Normal [facility] Comment on above: Order Comment: Reaso n for Exam Screening for cardiovascular condition Performed By: #### P SAS, LIPID #### [facility] [address] PSA Screen (Yearly Only)on PSA Screen (Yearly Only) 6.170 ng/mL High 0.000-4.000 [facility] Comment on above: Order Comment: Reaso n for Exam Screening for prostate cancer Is patient <50 yrs? Medicare does not pay <50.: Y What is the date of the last PSA Screen?: [id number] Is Medicare the insurance?: Y Did you verify eligibility (Dx Time) check TestViewGp: YES TO ALL Result Comment: PERF ORMED BY: [place] [id number] PATHOLOGIST [employer] WORKER LUDIN FITZGERALD M.D. Performed By: #### P SAS, LIPID #### [place] [id number] [facility] Outside Recordson 02-14-2020 Outside Records [id number] [facility] [id number] 09#1.00[facility] Outside Records [id number] 37#1.00[facility] Outside Recordson 10-08-2019 Outside Records [id number]#[facility] [id number]#1.00[facility] Coding Queryon 09-30-2019 Coding Query [id number] 66#1.00[facility] Coding Summaryon 09-30-2019 Coding Summary CODING DATE: 09/30/2019 [facility] STATUS: Home PAYOR: Medicare APC DESCRIPTION 5522 [...] Orly Yanez Date Saved: 09/30/2019 04:47 pm [facility] Release of Informationon Release of Information [id number] 55#1.00[facility] Rad - Bone Density Reporton 09-29-2019 Rad - Bone Density Report [id number] 85#1.00[facility] BD Bone Density DEXA Studyon 09-28-2019 BD [...] Cuellar MD 09/28/19 4:06 pm Technologist: JOSE [facility] Outside Recordson 09-27-2019 Outside Records [id number] Ambulatory Patient Summaryon 09-20-2019 Ambulatory Patient Summary [facility] Internal Medicine [facility], [address] Visit Summary For EFFIE CHAMBRES We would like to thank you for allowing us to assist you with your healthcare needs. Our entire staff strives to provide an excellent experience for our patients and their families. The following includes information regarding your visit. Age: 59 years Sex: MALE : 1960 Address: [address] [place] [address], [address] Home: Work: -- Mobile: -- Primary Care Provider: JESSICA GUZMÁN DO Race: Declined Ethnicity: Not or Language: Icelandic Health Plan: 1?MEDICARE, 2?MEDICAID [place] Reason for [...] problems; contact the Mental Health & Recovery [facility] 24/02 Crisis Hotline -Text 4HOPE to 290229. Follow-Up Information Referral Orders BD Bone Density DEXA Study 09/20/19 Routine, See Dx, Allow Modification Per Radiologist, Transport Mode: Walk, History of vertebral fracture, Order for future visit Future Appointments Int Med Clinic Phone: -- Fax: -- Appt. Date: 12/23/2019 9:30 AM Scheduled Provider: Snag Baird DO Future Orders BD Bone Density [...] documented Home Medications No reported medications documented [facility] Patient Handouton 09-20-2019 Patient Handout [facility] Outside Recordson 08-25-2019 Outside Records [id number] [facility] Ambulatory Patient Summaryon 08-19-2019 Ambulatory Patient Summary [facility] Internal Medicine [address] [place] [address], [address] Visit Summary For EFFIE CHAMBERS We would like to thank you for allowing us to assist you with your healthcare needs. Our entire staff strives to provide an excellent experience for our patients and their families. The following includes information regarding your visit. Age: 59 years Sex: MALE : 1960 Address: [address] [place] [address], [address] Home: Work: -- Mobile: -- Primary Care Provider: JESSICA GUZMÁN Race: Declined Ethnicity: Not or Language: Icelandic Health Plan: 1?MEDICARE, 2?MEDICAID [place] Reason for [...] alcohol and/or drug addiction problems; contact the [facility] & Recovery [facility] 24/02 Crisis Hotline -Text 4HOPE to 013379. Follow-Up Information Referral Orders Future Appointments No [...] documented Home Medications No reported medications documented [facility] Patient Handouton 08-19-2019 Patient Handout [facility] Vital Signs Date Time Vital Sign Value Performing Clinician Facility 12-02-2024 10:06-0400 Body mass index (BMI) [Ratio] 31.63 kg/m2 Theodora Mitchell TOOL AND MACHINE MAINTAINER Work Phone: [facility] 12-02-2024 10:06-0400 Body temperature 98.71 [degF] Theodora Mitchell TOOL AND MACHINE MAINTAINER Work Phone: [facility] 12-02-2024 10:06-0400 Body weight 105.78 kg Theodora Mitchell TOOL AND MACHINE MAINTAINER Work Phone: [facility] 12-02-2024 10:06-0400 Diastolic blood pressure 84 mm[Hg] Theodora Mitchell TOOL AND MACHINE MAINTAINER Work Phone: [facility] 12-02-2024 10:06-0400 Heart rate 70 /min Theodora Mitchell TOOL AND MACHINE MAINTAINER Work Phone: [facility] 12-02-2024 10:06-0400 Respiratory rate 24 /min Theodora Mitchell TOOL AND MACHINE MAINTAINER Work Phone: [facility] 12-02-2024 10:06-0400 SaO2% (BldA) [Mass fraction] 93 % Theodoratoña Canoz TOOL AND MACHINE MAINTAINER Work Phone: [facility] 12-02-2024 10:06-0400 Systolic blood pressure 126 mm[Hg] Theodoratoña Davisholz TOOL AND MACHINE MAINTAINER Work Phone: [facility] 06-22-2024 09:29-0500 Body height 182.9 cm Theodora Jeromez TOOL AND MACHINE MAINTAINER Work Phone: [facility] 06-22-2024 09:29-0500 Body mass index (BMI) [Ratio] 31.68 kg/m2 Theodoratoña Davisholz TOOL AND MACHINE MAINTAINER Work Phone: [facility] 06-22-2024 09:29-0500 Body temperature 98.6 [degF] Theodoratoña Canoz TOOL AND MACHINE MAINTAINER Work Phone: [facility] 06-22-2024 09:29-0500 Body weight 105.96 kg Theodoratoña Canoz TOOL AND MACHINE MAINTAINER Work Phone: [facility] 06-22-2024 09:29-0500 Diastolic blood pressure 84 mm[Hg] Theodora Jeromez TOOL AND MACHINE MAINTAINER Work Phone: [facility] 06-22-2024 09:29-0500 Heart rate 67 /min Theodora Ryanholz TOOL AND MACHINE MAINTAINER Work Phone: [facility] 06-22-2024 09:29-0500 Respiratory rate 22 /min Theodora Ryanholz TOOL AND MACHINE MAINTAINER Work Phone: [facility] 06-22-2024 09:29-0500 SaO2% (BldA) [Mass fraction] 97 % Theodora Ryanholz TOOL AND MACHINE MAINTAINER Work Phone: [facility] 06-22-2024 09:29-0500 Systolic blood pressure 112 mm[Hg] Theodora Ryanholz TOOL AND MACHINE MAINTAINER Work Phone: [facility] 05-24-2024 18:18-0400 Body height 182.9 cm Theodora Mitchell TOOL AND MACHINE MAINTAINER Work Phone: [facility] 05-24-2024 18:18-0400 Body mass index (BMI) [Ratio] 31.79 kg/m2 Theodora Mitchell TOOL AND MACHINE MAINTAINER Work Phone: [facility] 05-24-2024 18:18-0400 Body temperature 98.49 [degF] Theodora Mitchell TOOL AND MACHINE MAINTAINER Work Phone: [facility] 05-24-2024 18:18-0400 Body weight 106.32 kg Theodora Mitchell TOOL AND MACHINE MAINTAINER Work Phone: [facility] 05-24-2024 18:18-0400 Diastolic blood pressure 78 mm[Hg] Theodora Mitchell TOOL AND MACHINE MAINTAINER Work Phone: [facility] 05-24-2024 18:18-0400 Heart rate 74 /min Theodora Mitchell TOOL AND MACHINE MAINTAINER Work Phone: [facility] 05-24-2024 18:18-0400 Respiratory rate 21 /min Theodora Mitchell TOOL AND MACHINE MAINTAINER Work Phone: [facility] 05-24-2024 18:18-0400 SaO2% (BldA) [Mass fraction] 94 % Theodora Mitchell TOOL AND MACHINE MAINTAINER Work Phone: [facility] 05-24-2024 18:18-0400 Systolic blood pressure 122 mm[Hg] Theodora Mitchell TOOL AND MACHINE MAINTAINER Work Phone: [facility] 03-30-2024 09:50-0400 Body height 182.9 cm Theodora Mitchell TOOL AND MACHINE MAINTAINER Work Phone: [facility] 03-30-2024 09:50-0400 Body mass index (BMI) [Ratio] 31.74 kg/m2 Theodora Mitchell TOOL AND MACHINE MAINTAINER Work Phone: [facility] 03-30-2024 09:50-0400 Body temperature 98.6 [degF] Theodora Mitchell TOOL AND MACHINE MAINTAINER Work Phone: [facility] 03-30-2024 09:50-0400 Body weight 106.14 kg Theodora Ryanholz TOOL AND MACHINE MAINTAINER Work Phone: [facility] 03-30-2024 09:50-0400 Diastolic blood pressure 90 mm[Hg] Theodora Aichholz TOOL AND MACHINE MAINTAINER Work Phone: [facility] 03-30-2024 09:50-0400 Heart rate 62 /min Theodora Aichholz TOOL AND MACHINE MAINTAINER Work Phone: [facility] 03-30-2024 09:50-0400 Respiratory rate 19 /min Theodora Aichholz TOOL AND MACHINE MAINTAINER Work Phone: [facility] 03-30-2024 09:50-0400 SaO2% (BldA) [Mass fraction] 98 % Theodora Aichholz TOOL AND MACHINE MAINTAINER Work Phone: [facility] 03-30-2024 09:50-0400 Systolic blood pressure 122 mm[Hg] Theodora Aichholz TOOL AND MACHINE MAINTAINER Work Phone: [facility] 12-11-2023 09:16-0400 Body weight 103.87 kg Luis Rivera MD Work Phone: [facility] 12-11-2023 09:16-0400 Diastolic blood pressure 68 mm[Hg] Luis Rivera MD Work Phone: [facility] 12-11-2023 09:16-0400 Heart rate 62 /min Luis Rivera MD Work Phone: [facility] 12-11-2023 09:16-0400 Respiratory rate 16 /min Luis Rivera MD Work Phone: [facility] 12-11-2023 09:16-0400 Systolic blood pressure 136 mm[Hg] Luis Rivera MD Work Phone: [facility] 06-19-2021 09:00-0500 Body height 183.52 cm Florentin Valiente Other [facility] Other 06-19-2021 09:00-0500 Body mass index (BMI) [Ratio] 28.01 kg/m2 Florentin Valiente Other [facility] Other 06-19-2021 09:00-0500 Body weight 94.35 kg Florentin Quinonesahan Other [facility] Other 06-19-2021 09:00-0500 Diastolic blood pressure 86 mm[Hg] Florentin Valiente Other [facility] Other 06-19-2021 09:00-0500 Respiratory rate 18 /min Florentin Valiente Other [facility] Other 06-19-2021 09:00-0500 SaO2% (BldA) [Mass fraction] 98 % Florentin Valiente Other [facility] Other 06-19-2021 09:00-0500 Systolic blood pressure 144 mm[Hg] Florentin Quinonesahan Other [facility] Other Encounters Encounter Date Encounter Type Care Provider Facility Start: 02-18-2025 End: 02-18-2025 Refill Theodora Mitchell TOOL AND MACHINE MAINTAINER Work Phone: [facility] Comment on above: COPD mixed type (HCC ) Start: 12-02-2024 End: 12-02-2024 Bamboo flowsheet Theodora Mitchell TOOL AND MACHINE MAINTAINER Work Phone: [facility] Start: 12-02-2024 End: 12-02-2024 Bamboo flowsheet Theodora Mitchell TOOL AND MACHINE MAINTAINER Work Phone: [facility] Start: 12-02-2024 End: 12-02-2024 Patient encounter procedure Theodora Mitchell TOOL AND MACHINE MAINTAINER Work Phone: [facility] Comment on above: Encounter for subseq uent annual wellness visit (AWV) in Medicare patient (Primary Dx); COPD mixed type (CMS/HCC); Obesity (BMI 30-39.9); Cigarette nicotine dependence without complication; Mixed hyperlipidemia (CMS/HCC); Elevated PSA, between 10 and less than 20 ng/ml; Colon cancer screening declined; Prostate cancer screening declined; Rosacea Start: 12-02-2024 End: 12-02-2024 ambulatory THEODORA AICHHOLZ Not Available Start: 10-02-2024 End: 10-02-2024 Telephone encounter Theodora Mitchell TOOL AND MACHINE MAINTAINER Work Phone: [facility] Start: 06-22-2024 End: 06-22-2024 Bamboo flowsheet Theodora Stephen TOOL AND MACHINE MAINTAINER Work Phone: [facility] Start: 06-22-2024 End: 06-22-2024 Bamboo flowsheet Theodora Stephen TOOL AND MACHINE MAINTAINER Work Phone: [facility] Start: 06-22-2024 End: 06-22-2024 Office outpatient visit 25 minutes Theodora Stephen TOOL AND MACHINE MAINTAINER Work Phone: [facility] Comment on above: COPD mixed type (CMS /HCC) (Primary Dx); Obesity (BMI 30-39.9); BMI 29.0-29.9,adult; Tobacco use; Chronic pain syndrome Start: 06-22-2024 End: 06-22-2024 ambulatory THEODORA AICHHOLZ Not Available Start: 05-24-2024 End: 05-24-2024 Office outpatient visit 25 minutes Theodora Stephen TOOL AND MACHINE MAINTAINER Work Phone: [facility] Comment on above: COPD mixed type (CMS /HCC) (Primary Dx); Tobacco use Start: 05-24-2024 End: 05-24-2024 ambulatory THEODORA AICHHOLZ Not Available Start: 05-24-2024 End: 05-24-2024 Bamboo flowsheet Theodora Stephen TOOL AND MACHINE MAINTAINER Work Phone: [facility] Start: 05-24-2024 End: 05-24-2024 Bamboo flowsheet Theodora Stephen TOOL AND MACHINE MAINTAINER Work Phone: [facility] Start: 03-30-2024 End: 03-30-2024 Bamboo flowsheet Theodora Aichholz TOOL AND MACHINE MAINTAINER Work Phone: [facility] Start: 03-30-2024 End: 03-30-2024 Bamboo flowsheet Theodora Aichholz TOOL AND MACHINE MAINTAINER Work Phone: [facility] Start: 03-30-2024 End: 03-30-2024 ambulatory THEODORA AICHHOLZ Not Available Start: 03-30-2024 End: 03-30-2024 Office outpatient visit 25 minutes Theodora Mitchell TOOL AND MACHINE MAINTAINER Work Phone: [facility] Comment on above: Chronic pain syndrom e (Primary Dx); Tobacco use; COPD mixed type ([facility] Obesity (BMI 30-39.9) Start: 01-21-2024 End: 01-21-2024 ambulatory THEODORA AICHHOLZ Not Available Start: 12-11-2023 End: 12-11-2023 [facility] Start: 12-11-2023 End: 12-11-2023 Office outpatient visit 25 minutes Luis Rivera MD Work Phone: [facility] Comment on above: Fibromyalgia (Primar y Dx) Start: 12-01-2023 Patient encounter procedure Theodora Stephen TOOL AND MACHINE MAINTAINER Work Phone: [facility] Start: 01-23-2022 End: 01-23-2022 ambulatory JUSTIN PAO Facility:[facility] Start: 12-18-2021 End: 12-19-2021 ambulatory NORMAN EULA Facility:[facility] Start: 12-10-2021 End: 12-11-2021 ambulatory NORMAN EULA Facility:[facility] Start: 06-20-2021 End: 06-20-2021 ambulatory Florentin Valiente Other [facility] Other Start: 06-20-2021 Telephone encounter [facility] Start: 06-19-2021 End: 06-19-2021 ambulatory Florentin Valiente Other [facility] Other Start: 06-19-2021 Office outpatient vi sit 25 minutes Florentin Quinonesahan [facility] Plan of Treatment Date Care Activity Detail Author Start: 12-06-2025 End: 12-06-2025 Patient encounter procedure 12/06/2025 10:00 AM EDT Office Visit [facility] [address] [place] [phone] Theodora Mitchell NP [address] [place] [phone] [facility] Start: 12-02-2025 Medicare Annual Well ness (AWV) Medicare Annual Wellness (AWV) [facility] Start: 12-02-2025 Screening for malign ant neoplasm of colon Colorectal Cancer Screening [facility] Comment on above: Postponed from 02/01 (Patient Refused) Start: 06-06-2025 End: 06-06-2025 Patient encounter procedure 06/06/2025 9:00 AM EST Office Visit [facility] [address] [place] [phone] Theodora Mitchell, BETHANY [address] [place] [phone] [facility] Start: 12-02-2024 End: 12-02-2025 CBC W Auto Differential panel - Blood CBC and differential Lab Routine COPD mixed type (CMS/HCC) Cigarette nicotine dependence without complication Expected: 12/02/2024 (Approximate), Expires: 12/02/2025 [facility] Work Phone: Comment on above: Expected: 12/02/2024 (Approximate), Expires: 12/02/2025 Start: 12-02-2024 End: 12-02-2025 Comprehensive metabolic 2000 panel - Serum or Plasma Comprehensive metabolic panel Lab Routine Obesity (BMI 30-39.9) Mixed hyperlipidemia (CMS/HCC) Expected: 12/02/2024 (Approximate), Expires: 12/02/2025 [facility] Comment on above: Expected: 12/02/2024 (Approximate), Expires: 12/02/2025 Start: 12-02-2024 End: 12-02-2025 Lipid 1996 panel - Serum or Plasma Lipid panel Lab Routine Mixed hyperlipidemia (CMS/HCC) Expected: 12/02/2024 (Approximate), Expires: 12/02/2025 [facility] Comment on above: Expected: 12/02/2024 (Approximate), Expires: 12/02/2025 Start: 12-02-2024 End: 12-02-2025 Urinalysis complete panel - Urine Urinalysis with reflex microscopic (clean catch) Lab Routine Cigarette nicotine dependence without complication Expected: 12/02/2024 (Approximate), Expires: 12/02/2025 [facility] Comment on above: Expected: 12/02/2024 (Approximate), Expires: 12/02/2025 Start: 12-02-2024 End: 12-02-2024 Patient encounter procedure 12/02/2024 10:00 AM EDT Office Visit [facility] [address] [place] [address] Theodora Mitchell NP [address] [place] [address] COPD mixed type (CMS/HCC) (Primary Dx); Obesity (BMI 30-39.9); Encounter for subsequent annual wellness visit (AWV) in Medicare patient; Cigarette nicotine dependence without complication; Colon cancer screening; Mixed hyperlipidemia (CMS/HCC); Elevated PSA, between 10 and less than 20 ng/ml [facility] Comment on above: COPD mixed type (CMS /HCC) (Primary Dx); Obesity (BMI 30-39.9); Encounter for subsequent annual wellness visit (AWV) in Medicare patient; Cigarette nicotine dependence without complication; Colon cancer screening; Mixed hyperlipidemia (CMS/HCC); Elevated PSA, between 10 and less than 20 ng/ml Start: 11-30-2024 Medicare Annual Well ness (AWV) Medicare Annual Wellness (AWV) [facility] Start: 10-28-2024 Screening for malign ant neoplasm of colon Colorectal Cancer Screening [facility] Comment on above: Postponed from 02/01 (Patient Refused) Start: 09-22-2024 End: 09-22-2024 Patient encounter procedure 09/22/2024 9:00 AM EST Office Visit [facility] [address] [place] [address] Theodora Mitchell NP [address] [place] [phone] [facility] Start: 07-14-2024 End: 07-14-2024 Patient encounter procedure 07/14/2024 9:40 AM EST Office Visit [facility] [address] [place] [phone] Theodora Mitchell NP [address] [place] [address] [facility] Start: 06-22-2024 End: 06-22-2024 Patient encounter procedure [facility] Comment on above: COPD mixed type (CMS /HCC) (Primary Dx); Obesity (BMI 30-39.9); BMI 29.0-29.9,adult; Tobacco use Start: 06-20-2024 Tobacco Counseling Tobacco Counselin g [facility] Start: 06-12-2024 Tobacco Screening Tobacco Screening [facility] Start: 05-24-2024 End: 05-24-2024 Patient encounter procedure 05/24/2024 6:30 PM EDT Office Visit [facility] [address] [place] [phone] Theodora Mitchell, TOOL AND MACHINE MAINTAINER [address] [place] [phone] Arrived [facility] Comment on above: Arrived Start: 04-04-2024 Influenza vaccination Influenza Vacc ine [facility] Start: 2023 Fall Risk Screening Fall Risk Screen ing [facility] Start: 02-02-2008 Administration of varicella zoster vaccine Zoster (Shingles) Vaccine (1 of 2) [facility] Start: 04-07-1999 DTaP,Tdap and Td Vaccines (1 - Tdap) DTaP,Tdap and Td Vaccines (1 - Tdap) [facility] Start: 02-02-1976 Adult BMI Screening Adult BMI Screen ing [facility] Start: 1970 Depression Screening Depression Scre ening [facility] Start: 1960 Medicare Annual Well ness Visit Medicare Annual Wellness Visit [facility] Start: 1960 Screening for malign ant neoplasm of colon [facility] Immunizations Immunization Date Immunization Notes Care Provider Fa julianna 04-06-1999 TD(adult) unspecifie d formulation Theodora Mitchell NP Work Phone: [facility] Payers Date Payer Category Payer Medicare [id number] 2020 Medicare (Managed Care) [employer] [id number] 2017 Medicaid [id number] 1959 Medicaid [id number] 1959 Unknown [id number] 1960 Unknown [id number]. 593 1960 Unknown [id number] [id number]. 593 1960 Unknown [id number] [id number]. 593 1960 Unknown [id number] [id number]. 1286 1960 Unknown [id number] [id number]. 1259 1960 Unknown [id number] [id number]. 1259 1960 Unknown [id number] [id number]. 1259 1960 Unknown [id number] [id number]. 1259 1960 Unknown [id number] [id number]. 1259 Medicare [id number] Social History Date Type Detail Facility Sex Assigned At [facility] Other Start: 12-24-2023 Tobacco smoking stat [facility] Ex-smoker [facility] End: 12-16-2023 History of tobacco use Current smoker [facility] End: 12-16-2023 History of tobacco use Cigarette Smoker [facility] Start: 11-06-2022 End: 12-24-2023 Tobacco use and exposure Smokeless tobacco non-user [facility] Start: 05-24-2024 End: 12-02-2024 Alcoholic beverage intake Lifetime non-drinker (finding) [facility] Start: 09-24-2023 End: 09-25-2023 History of [...] Not at all [facility] (I/We) worried michi er (my/our) food would run out before (I/we) got money to buy more. Never true [facility] In the past 12 month s, has lack of transportation kept you from medical appointments or from getting medications? No [facility] Start: 09-22-2023 Alcohol Comment caffine: 2cups daily [facility] Start: 1960 Sex assigned at Not on file P [facility] Start: 11-06-2022 Tobacco smoking stat [facility] Smokes tobacco daily [facility] History of tobacco use Passive smoker [facility] NEGATED: Highlighted rowStart: NINF History of tobacco use Passive smoker [facility] Functional Status Date Assessment Result Facility 12-02-2024 Patient Health Quest ionnaire 2 item (PHQ-2) [Reported] [facility] 12-02-2024 How difficult have t hese problems made it for you to do your work, take care of things at home, or get along with other people? Not difficult at all 12/02/2024 10:08 AM JANUSZ MCCULLOUGH Not difficult at all [facility] Clinical Notes 06-22-2021 to 12-02-2024 Theodora Mitchell NP - 12/02/2024 10:44 AM Leeroy Mitchell NP - 12/02/2024 10:00 AM Leeroy Mitchell, BETHANY - 12/02/2024 6:38 AM Leeroy Mitcehll NP - 12/02/2024 6:37 AM EDTPatient Instructions Note Date & Type Note Facility 12-02-2024 History of Present illness Narrative Associated Problem(s): Prostate cancer screening declined Has had elevation in the past, does not want checked again He does not want to do anything if he has cancer Images from the original note were not included. Effie Chambers is a 64 y.o. male presents with chief complaint of Medicare Annual Wellness Visit Initial HPI: Diet: tries to eat healthy Activity: no Mental Health Concerns:no Falls in the last year: no Still driving: yes Do you pay your bills: sister does this for him Any hearing problems: no Any Vision problems: no , last eye exam a few years ago Any Hospitalizations in the last year: no Specialist: Courtney HCPOA/Living Will: yes Concerns: COPD: stable, sees courtney, still trying to quit, is now smoking ulta lights, +wheeze, no blood SUBJECTIVE: MEDICATIONS: Current Outpatient Medications Medication Instructions albuterol HFA 90 mcg/act inhaler 2 puffs, Every 6 hours PRN Ciclopirox 1 % shampoo Lather on wet hair, leave on 5 min, rinse 2-3 x week, 30 day supply Akicfvuxnnb-Khcmrazxq-Ndreta (Trelegy Ellipta) 100-62.5-25 MCG/ACT aerosol powder 1 puff, Inhalation, Daily, Rinse mouth after use ketoconazole (NIZOral) 2 % shampoo lather onto face and scalp, leave on 5 minutes then rinse topically 3-5 times weekly as needed for 30 day(s) ALLERGIES: Allergies Allergen Reactions Aspirin Swelling Codeine Other and Itching Ibuprofen GI intolerance Other Nausea And Vomiting Sulfa Antibiotics Nausea And Vomiting Cortisone Anxiety, Other and Dizziness REVIEW OF SYMPTOMS: Review of Systems Constitutional: Negative for activity change, appetite change and unexpected weight change. HENT: Negative for ear pain, nosebleeds, sneezing, trouble swallowing and voice change. Eyes: Negative for pain, discharge and visual disturbance. Respiratory: Positive for shortness of breath and wheezing. Negative for apnea and chest tightness. Cardiovascular: Negative for leg swelling. Gastrointestinal: Negative for abdominal distention, blood in stool, constipation and diarrhea. Genitourinary: Negative for decreased urine volume, difficulty urinating, dysuria and hematuria. Skin: Positive for rash. Negative for color change. Neurological: Negative for dizziness, tremors and seizures. Psychiatric/Behavioral: Negative for agitation, decreased concentration, hallucinations, self-injury and suicidal ideas. The patient is not nervous/anxious. Hematological: Negative [...] unknown by patient. OBJECTIVE: Visit Vitals BP 126/84 (BP Location: Left arm, Patient Position: Sitting, BP Cuff Size: Adult long) Pulse 70 Temp 98.7 F (Temporal) Resp 24 Wt 233 lb 3.2 oz SpO2 93% BMI 31.63 kg/m Smoking Status Former BSA 2.32 m [...] Effort: Pulmonary effort is normal. Breath sounds: Wheezing (exp) present. Abdominal: General: Bowel sounds are normal. Palpations: Abdomen is soft. Tenderness: There is no abdominal tenderness. Hernia: No hernia is present. Musculoskeletal: Cervical back: Neck supple. Right lower leg: No edema. Left lower leg: No edema. Lymphadenopathy: Cervical: No cervical adenopathy. Skin: General: Skin is warm and dry. Capillary Refill: Capillary refill takes 2 to 3 seconds. Findings: Rash (rosacea rash to nose and cheeks) present. Neurological: General: No focal deficit present. Mental Status: He is alert. Psychiatric: Mood and Affect: Mood normal. Behavior: Behavior normal. Thought Content: Thought content normal. Judgment: Judgment normal. ASSESSMENT AND PLAN: Follow up in about 6 months (around 06/04/2025) for Recheck. Problem List Items Addressed This Visit Mixed hyperlipidemia (CMS/HCC) Is not taking meds, recommend low fat diet Check labs yearly Relevant Orders Comprehensive metabolic panel Lipid panel COPD mixed type (CMS/HCC) Trelegy continue with do through PAP Needs to quit smoking (has worked very hard at trying), cont with pulmonary Relevant Orders CBC and differential Elevated PSA, between 10 and less than 20 ng/ml I did review his PSA levels including his free PSA He states no family hx of prostate cancer , but does have family hx of BPH states his father's levels are 30's he is 89. I explained that he does have a low free PSA which can be indicative of prostate cancer, however until he sees urology and has further testing we will not know At this time he does not want to see a urologist at this time 01/21/24 continues to decline urology Obesity (BMI 30-39.9) Discussed with patient their BMI (actual, verses recommended). We have also discussed lifestyle modifications: attempts to perform physical activity as chronic conditions allow, also to monitor dietary intake: increasing protein/fruits/veggies and lowering carb intake (unless contraindicated). Limit sodas, juices, and sugary drinks. Relevant Orders Comprehensive metabolic panel Encounter for subsequent annual wellness visit (AWV) in Medicare patient - Primary Reviewed Ht/Wt/BMI Recommend eye exam yearly Recommend dental exams twice a year Balance work/leisure activities Exercises is recommended most days of the week (appropriate as chronic conditions allow) Follow up yearly and prn Rosacea Cigarette nicotine dependence without complication The patient has been advised of the risks of continued smoking: stroke, MT, all forms of cancer, lung disease, and . Options for quitting smoking include: cold turkey, hypnosis, acupuncture, nicotine replacement meds (gum, lozenges, and patches), Buproprion, and Varenicline. At this time pt is encouraged to evaluate their goals for wanting to quit smoking, and reach out to provider when ready to start this process Relevant Orders CBC and differential Urinalysis with reflex microscopic (clean catch) Colon cancer screening declined Prostate cancer screening declined Has had elevation in the past, does not want checked again He does not want to do anything if he has cancer Associated Problem(s): Elevated PSA, between 10 and less than 20 ng/ml I did review his PSA levels including his free PSA He states no family hx of prostate cancer , but does have family hx of BPH states his father's levels are 30's he is 89. I explained that he does have a low free PSA which can be indicative of prostate cancer, however until he sees urology and has further testing we will not know At this time he does not want to see a urologist at this time 01/21/24 continues to decline urology Associated Problem(s): Mixed hyperlipidemia (CMS/HCC) Is not taking meds, recommend low fat diet Check labs yearly Associated Problem(s): Colon cancer screening (Resolved 12/02/2024) Colon cancer screening options were discussed with patient, as well as why colon cancer screening is indicated. Options are Colonoscopy: direct visualization, every 10 years (unless indicated more frequently), risks and benefits were discussed Cologuard: every 3 years, risks and benefits were discussed , contraindications were discussed (family hx of colon cancer, colon polyps) Patient has elected to: Associated Problem(s): Cigarette nicotine dependence without complication The patient has been advised of the risks of continued smoking: stroke, MT, all forms of cancer, lung disease, and . Options for quitting smoking include: cold turkey, hypnosis, acupuncture, nicotine replacement meds (gum, lozenges, and patches), Buproprion, and Varenicline. At this time pt is encouraged to evaluate their goals for wanting to quit smoking, and reach out to provider when ready to start this process Associated Problem(s): Encounter for subsequent annual wellness visit (AWV) in Medicare patient Reviewed Ht/Wt/BMI Recommend eye exam yearly Recommend dental exams twice a year Balance work/leisure activities Exercises is recommended most days of the week (appropriate as chronic conditions allow) Follow up yearly and prn Associated Problem(s): Obesity (BMI 30-39.9) Discussed with patient their BMI (actual, verses recommended). We have also discussed lifestyle modifications: attempts to perform physical activity as chronic conditions allow, also to monitor dietary intake: increasing protein/fruits/veggies and lowering carb intake (unless contraindicated). Limit sodas, juices, and sugary drinks. Associated Problem(s): COPD mixed type (CMS/HCC) Trelegy continue with do through PAP Needs to quit smoking (has worked very hard at trying), cont with pulmonary documented in this encounter [facility] 12-02-2024 Instructions Theodora Mitchell NP - 12/02/2024 10:00 AM EDT Please get labs completed documented in this encounter [facility] 10-02-2024 Telephone encounter Note Please call and schedule an AWV after 11/30/24 LA [facility] 10-02-2024 Miscellaneous Notes Please call and schedule an AWV after 11/30/24 LA documented in this encounter [facility] 06-22-2024 History of Present illness Narrative Associated [...] rinse 2-3 x week, 30 day supply Kgtzutdwuuk-Mnmttfhog-Lvuzhy (Trelegy Ellipta) 100-62.5-25 MCG/ACT aerosol powder 1 [...] of the risks of continued smoking: stroke, MT, all forms of cancer, lung disease, and [...] of the risks of continued smoking: stroke, MT, all forms of cancer, lung disease, and [...] sugary drinks. documented in this encounter [facility] 06-22-2024 Instructions Theodora Mitchell NP - 06/22/2024 9:20 AM EST I will complete Pt assistance form for trelegy Continue with dr chamberlain for lungs as well For chronic pain if you change your mind I will send to Pain Management documented in this encounter [facility] 05-24-2024 History of Present illness Narrative [...] rinse 2-3 x week, 30 day supply Cgwkklxbchu-Rmrydqezw-Hiwmwm (Trelegy Ellipta) 100-62.5-25 MCG/ACT aerosol powder 1 [...] form for 100mg Lot: NC5K, exp 08/29 documented in this encounter [facility] 05-24-2024 Instructions Theodora Mitchell NP - 05/24/2024 6:30 PM EDT Call office if worsening in suicidal thoughts, or aggitation Start buproprion 150mg 1 pill daily for 3 days, then increase to twice a day Complete pt assistance form for trelegy documented in this encounter [facility] 03-30-2024 History of Present illness Narrative [...] rinse 2-3 x week, 30 day supply Zuljcnrytpc-Beycdxkkp-Rfzxpu (Trelegy Ellipta) 100-62.5-25 MCG/ACT aerosol powder 1 [...] these either documented in this encounter [facility] 12-11-2023 History of Present illness Narrative Images from the original note were not included. [address] [facility] [address] [facility] [address] Date of Service: 12/11/2023 Subjective: Effie Chambers is a 63 y.o. male who presents today for evaluation chronic pain. Patient is seen at the request of NO PCP, NO PCP. 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 Last time seen in the clinic was 06/12/2023 Patient symptoms started 1999 after he was involved in an accident at home with fracture, with history of previous low back flexor 1979, patient started having with diffuse musculoskeletal pain as well as fatigability, non-refreshing poor sleep, feeling tired and exhausted, no history of joint swelling. No Raynaud's, no oral ulcers, no alopecia, no butterfly rash, no skin rash or psoriasis. No constitutional symptoms No history of cytopenia, serositis, DVT/PE In addition she has been having neck pain as well as low back pain Recent lab January 2019 including CBC normal, comprehensive metabolic. Smoking history 50 pack years . Lab tests done 07/11/2022 CBC and CMP normal, ESR CRP normal, LDH, CK, aldolase normal, antiphospholipid antibodies negative, complements normal, cryoglobulins negative, uric acid normal, TSH normal, vitamin B12 normal, vitamin-D mild low, PASCUAL 1:320 , rheumatoid factor negative, ANCA negative, uric acid normal Lab tests done 11/21/2022 CLAUDIA panel negative, anti DNA by crithidia negative Current medications including Zanaflex, amitriptyline, and Lyrica Today patient said that discontinued Zanaflex amitriptyline and Lyrica after he got sick in July 2023 and since then has been doing fairly well with no medications The following portions of the patient's history were reviewed and updated as appropriate: allergies, current medications, past family history, past medical history, past social history, past surgical history and problem list. Review of Systems: Review of Systems Constitutional: Negative for fatigue. Musculoskeletal: Negative for arthralgias. Psychiatric/Behavioral: Negative for sleep disturbance. Current Outpatient Medications Medication Sig Dispense Refill albuterol (PROVENTIL HFA;VENTOLIN HFA) 90 mcg/actuation inhaler PROAIR RESPICLICK 90 mcg/actuation aerosol powdr breath activated 2 puffs every 6 hours as needed for wheezing or shortness of breath amitriptyline (ELAVIL) 75 mg tablet One capsule at 8 PM each night (Patient not taking: Reported on 12/11/2023) 90 tablet 1 pregabalin (LYRICA) 150 mg capsule One capsule twice daily (Patient not taking: Reported on 12/11/2023) 180 capsule 1 tiZANidine (ZANAFLEX) 4 mg tablet One and half tab at 8:00 p.m.each night (Patient not taking: Reported on 12/11/2023) 135 tablet 1 No current facility-administered medications for this visit. Physical Exam: Physical Exam Vitals and nursing note reviewed. Constitutional: Appearance: He is well-developed. HENT: Head: Normocephalic and atraumatic. Right Ear: External ear normal. Left Ear: External ear normal. Nose: Nose normal. Eyes: Conjunctiva/sclera: Conjunctivae normal. Pupils: Pupils are equal, round, and reactive to light. Neck: Thyroid: No thyromegaly. Vascular: No JVD. Cardiovascular: Comments: Left foot pallor on elevation, Pulmonary: Effort: Pulmonary effort is normal. Musculoskeletal: General: No tenderness or deformity. Normal range of motion. Cervical back: Normal range of motion and neck supple. Comments: Joint exams no tenderness Skin: General: Skin is warm and dry. Coloration: Skin is not pale. Findings: No erythema or rash. Comments: No livedo reticularis at this point of the lower limb Neurological: Mental Status: He is alert and oriented to person, place, and time. Psychiatric: Behavior: Behavior normal. Thought Content: Thought content normal. IVAN-28 (If Applicable) There is currently no information documented on the homunculus. Go to the Rheumatology activity and complete the homunculus joint exam. IVAN-28 (CRP): -- IVAN-28 (ESR): -- Tender (IVAN-28): -- Swollen (IVAN-28): -- BP 136/68 Pulse 62 Resp 16 Wt 103.9 kg (229 lb) : reviewed Labs and Imaging: reviewed and discussed with the patient during the visit.I Lab Results Component Value Date WBC 8.6 07/11/2022 HGB 14.4 07/11/2022 HCT 42.1 07/11/2022 MCV 93 07/11/2022 CRP 1.0 (H) 07/11/2022 C3 116 07/11/2022 C4 42 07/11/2022 AST 14 07/11/2022 Imaging: Assessment and Plan: Effie Chambers is a 63 y.o. male patient with: 1. Fibromyalgia At this point patient patient has been comfortable on no medications and he would rather stay of medications. Advised patient to come back to the clinic if he needs to in the future. This note was created with the assistance of a speech recognition program. While intending to generate a timely document that accurately reflects the content of the visit, no guarantee can be provided that every grammatical or spelling mistake has been or will be identified or corrected. Thank you for your understanding. [facility] Physicians Rheumatology Dr. Luis Rivera MD [address] [place] [address] [address] [place] [address] Office: [phone] documented in this encounter [facility] 06-22-2021 Note Chief Complaint Referral HPI [...] w/o contrast Office Visit Level 4 New 51200 Urnls Dip Stick Auto w/o Microscopy POC 71238 2. 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 Cont ASA 81 mg. Strong family hx of CAD, MIs. Ordered: Office Visit Level 4 New 47020 3. Tobacco use (Z72.0: Tobacco use) Counseled on risks of prostate cancer and smoking, he will try patches to quit. He declined further assistance today, as he knows the resources to contact if needed. Ordered: Office Visit Level 4 New 41514 I have reviewed the previous health record information and history for this pt. from external provider, Dr. Bashir. Follow-up With When Contact Information Dmitri MISHRA, Tina Walden, URL, [facility] [address], [place] [address]- [phone] Additional Instructions: Patient Education Prostate-Specific Antigen Test [...] lower extremity Xena (more content not included)... [facility] Comment on above: Result Comment: Elec tronically Signed By: Tina Rizvi MD\.br\Date and Time Signed: 06/22/21 14:10 EST\.br\Electronically Co-Signed By: Radha Mahan MA\.br\Date and Time Co-Signed: 06/22/21 13:53 EST\.br\Electronically Co-Signed By: Radha Mahan MA\.br\Date and Time Co-Signed: 06/22/21 13:55 EST Evaluation note [facility] [employer] Other Evaluation note [facility] [employer] Other Evaluation note Diagnosis COPD with acute [...] Chronic pain syndrome documented in this encounter [facility]* Diagnosis Chronic pain syndrome- Primary Tobacco use COPD mixed type (CMS/HCC) Obesity (BMI 30-39.9) documented in this encounter [facility]* Diagnosis Fibromyalgia- Primary Unspecified myalgia and myositis documented [facility]* Diagnosis COPD with acute exacerbation (CMS/HCC)- [...] BMI 29.0-29.9,adult Tobacco use Chronic pain syndrome Encounter for subsequent annual wellness visit (AWV) in Medicare patient- Primary COPD mixed type (CMS/HCC) Obesity (BMI 30-39.9) Cigarette nicotine dependence without complication Mixed hyperlipidemia (CMS/HCC) Mixed hyperlipidemia Elevated PSA, between 10 and less than 20 ng/ml Colon cancer screening declined Prostate cancer screening declined Rosacea documented in this encounter [facility]* Diagnosis COPD with acute exacerbation (HCC)- Primary BMI 29.0-29.9,adult Tobacco use Mixed hyperlipidemia Mixed hyperlipidemia Screening for prostate cancer Special screening for malignant neoplasm of prostate COPD mixed type (HCC) COPD mixed type (HCC)- Primary Tobacco use Elevated PSA, between 10 and less than 20 ng/ml Mixed hyperlipidemia Mixed hyperlipidemia Encounter for subsequent annual wellness visit (AWV) in Medicare patient- Primary COPD mixed type (HCC) Cerebrovascular accident (CVA), unspecified mechanism (HCC) Tobacco use Obesity (BMI 30-39.9) COPD mixed type (HCC)- Primary Obesity (BMI 30-39.9) Rosacea Chronic pain syndrome- Primary Tobacco use COPD mixed type (HCC) Obesity (BMI 30-39.9) COPD mixed type (HCC)- Primary Tobacco use COPD mixed type (HCC)- Primary Obesity (BMI 30-39.9) BMI 29.0-29.9,adult Tobacco use Chronic pain syndrome Encounter for subsequent annual wellness visit (AWV) in Medicare patient- Primary COPD mixed type (HCC) Obesity (BMI 30-39.9) Cigarette nicotine dependence without complication Mixed hyperlipidemia Mixed hyperlipidemia Elevated PSA, between 10 and less than 20 ng/ml Colon cancer screening declined Prostate cancer screening declined Rosacea COPD mixed type (HCC) documented in this encounter [facility] Healthcare[facility] general Narrative - ReportedNoVocab Chayamuni Other History general Narrative - ReportedNoRivalfox Other InstructionsNot on filedocumented in this encounter [facility] Summary Purpose Family History No Family History Records FoundNo Family History Records FoundNo Family History Records FoundNo Family History Records FoundNo Family History Records FoundNo Family History Records Found Advance Directives Documents on File Type Date 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 Advance Directives and Living Will 06/22/2024 9:59 AM Living will Power of Gate Tender 06/22/2024 9:57 AM 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 of 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 Additional Source Comments (unrecognized sect ion and content) No Status Records FoundNo Status Records FoundNo Status Records FoundNo Status Records FoundNo Status Records FoundNo Status Records Found INFORMATION SOURCE (unrecogn ized section and content) DATE CREATED AUTHOR 08/07/2020 [facility] DATE CREATED AUTHOR AUTHOR'S ORGANIZ ATION 06/12/2021 [facility] DATE CREATED AUTHOR AUTHOR'S ORGANIZ ATION 11/08/2021 [facility] DATE CREATED AUTHOR AUTHOR'S ORGANIZ ATION 01/24/2022 [facility] DATE CREATED AUTHOR AUTHOR'S ORGANIZ ATION 12/13/2023 [facility] DATE CREATED AUTHOR AUTHOR'S ORGANIZ ATION 12/07/2024 [facility] dical Specialists [facility] Care Teams (unrecognized sec tion and content) Associate Software Developer Relationship Specialty Start Date End Date Akil Fink MD [address] [place] [address] PCP - General Family Medicine 09/25/23 Theodora Mitchell NP [address] [place] [address] PCP - Kendrick PACK 02/02/24 Shaikh Tamayo MD [address] [place] [address] Referring Physician Internal Medicine 09/25/23 Laura Barger LPN Licensed Practical Nurse Family Medicine 04/16/24 Associate Software Developer Relationship Specialty Start Date End Date Akil Fink MD [address] [place] [address] PCP - General Family Medicine 09/25/23 Theodora Mitchell NP [address] [place] [address] PCP Smitha Marks MA 02/02/24 Shaikh Tamayo MD [address] [place] [address] Referring Physician Internal Medicine 09/25/23 Laura Barger LPN Licensed Practical Nurse Family Medicine 04/16/24 Associate Software Developer Relationship Specialty Start Date End Date Akil Fink MD [address] [place] [address] PCP - General Family Medicine 09/25/23 Theodora Mitchell NP [address] [place] [address] PCP - eKndrick PACK 02/02/24 Shaikh Tamayo MD [address] [place] [address] Referring Physician Internal Medicine 09/25/23 Mary Bain MA Family Medicine 06/15/24 Associate Software Developer Relationship Specialty Start Date End Date Akil Fink MD [address] [place] [address] PCP - General Family Medicine 09/25/23 Theodora Mitchell NP [address] [place] [address] PCP - Kendrick PACK 02/02/24 Shaikh Tamayo MD [address] [place] [address] Referring Physician Internal Medicine 09/25/23 Mary Bain MA Family Medicine 06/15/24 Associate Software Developer Relationship Specialty Start Date End Date Akil Fink MD [address] [place] [address] PCP - General Family Medicine 09/25/23 Theodora Mitchell NP [address] [place] [address] PCP - Kendrick PACK 02/02/24 Shaikh Tamayo MD [address] [place] [address] Referring Physician Internal Medicine 09/25/23 Laxmi Hdz LPN Licensed Practical Nurse Family Medicine 12/23/23 Associate Software Developer Relationship Specialty Start Date End Date Akil Fink MD [address] [place] [address] PCP - General Family Medicine 09/25/23 Theodora Mitchell NP [address] [place] [address] PCP - Kendrick PACK 02/02/24 Shaikh Tamayo MD [address] [place] [address] Referring Physician Internal Medicine 09/25/23 Laxmi Hdz LPN Licensed Practical Nurse Family Medicine 12/23/23 Associate Software Developer Relationship Specialty Start Date End Date No Pcp, [place] [address] PCP - General Family Medicine 07/11/22 Associate Software Developer Relationship Specialty Start Date End Date Akil Fink MD [address] [place] [address] PCP - General Family Medicine 09/25/23 Shaikh Tamayo MD [address] [place] [address] Referring Physician Internal Medicine 09/25/23 Mary Bain MA Family Medicine 06/15/24 Associate Software Developer Relationship Specialty Start Date End Date Akil Fink MD [address] [place] [address] PCP - General Family Medicine 09/25/23 Theodora Mitchell NP [address] [place] [address] PCP - Kendrick PACK 02/02/24 Shaikh Tamayo MD [address] [place] [address] Referring Physician Internal Medicine 09/25/23 Mary Bain MA [facility] Medicine 06/15/24 Associate Software Developer Relationship Specialty Start Date End Date Akil Fink MD [address] [place] [address] PCP - General Family Medicine 09/25/23 Theodora Mitchell NP [address] [place] [address] PCP Smitha Marks MA 02/02/24 Shaikh Tamayo MD [address] [place] [address] Referring Physician Internal Medicine 09/25/23 Mary Bain MA Family Medicine 06/15/24 Associate Software Developer Relationship Specialty Start Date End Date Akil Fink MD [address] [place] [address] PCP - General Family Medicine 09/25/23 Theodora Mitchell NP [address] [place] [address] PCP - Kendrick PACK 02/02/24 Shaikh Tamayo MD [address] [place] [address] Referring Physician Internal Medicine 09/25/23 Mary Bain MA [address] [place] [address] Family Medicine 06/15/24 Reason for Visit (unrecogniz ed section and content) Reason Comments COPD Shortness of Breath Back Pain Neck Pain Reason Comments Medicare Annual Wellness Visit Initial FOR RECORDS PERTAINING TO PATIENTS WHO ARE [...] BE BASED ON THE PRIMARY CLINICAL RECORDS. [employer] provides no warranty or guarantee of the accuracy or completeness of information in this document.
--- OUTSIDE RECORDS SUMMARY | 2025-05-16 06:33 | XMS_ITS | Encounter Summary ---
Author Organization [employer] tem Address [id number] [address] [place] [address] Care Team Providers Care Salesperson Pets And Pet Supplies Name Role Phone No Pcp, No Pcp Primary Care Provider Unavailabl e Encounter Details Date Type Department Care Team (Late st Contact Info) Description 08/13/2022 Telephone [facility] [address] [address] Mickie Noble CMA Social History Tobacco Use Types Packs/Day Years Used Date Smoking Tobacco: Never Assessed Sex and Gender Information Value Date Recorded Sex Assigned at Not on file Legal Sex Male 9:10 AM EDT Gender Identity Not on file Sexual Orientation Not on file documented as of this encounter Miscellaneous Notes * Telephone Encounter - Mickie Noble CMA - 08/13/2022 2:29 PM EST Taran called in stated the medication you started him was working fine he was sleeping good at nightfor about a month. He stated now the pain coming back and having shortness of breath, runny nose. He was wondering could be from the medication?? He ask if you consider something else. Please advise.Thanks * Telephone Encounter - Lin Cope MD - 08/13/2022 2:29 PM EST His symptoms unlikely to be related to current medications * Telephone Encounter - Mickie Noble CMA - 08/13/2022 2:29 PM EST Spoke with Taran gave message from dr cope. Pt stated he will take away one medication (amtripyline) to see if that will work. Also will like this blood work results?? documented in this encounter Plan of Treatment Not on file documented as of this encounter Visit Diagnoses Not on filedocumented in this encounter Care Teams Salesperson Pets And Pet Supplies Relationship Specialty Start Date End Date No Pcp, [place] [address] PCP - General Family Medicine 07/11/22 documented as of this encounter
--- OUTSIDE RECORDS SUMMARY | 2025-05-16 06:33 | XMS_ITS | Encounter Summary ---
Author Organization [employer] Address [facility] [id number] [address] [place] [address] Care Team Providers Care Parts Technician Name Role Phone No Pcp, No Pcp Primary Care Provider Unavailabl e Reason for Visit * Reason Comments Med Refill Encounter Details Date Type Department Care Team (Late st Contact Info) Description 10/07/2022 Refill [facility] [address] [facility] [address] [place] [address] Lin Rivera MD [address] [facility] [address] [place] [address] Fibromyalgia Social History Tobacco Use Types Packs/Day [...] have Coronavirus / COVID-19? No / Unsure 10/09/2022 12:04 PM EST documented as of this encounter Plan of Treatment Not on file documented as of this encounter Visit Diagnoses Diagnosis Fibromyalgia Unspecified myalgia and myositis documented in this encounter Care Teams Parts Technician Relationship Specialty Start Date End Date No Pcp, [place] [address] PCP - General Family Medicine 07/11/22 documented as of this encounter
--- OUTSIDE RECORDS SUMMARY | 2025-05-16 06:34 | XMS_ITS | Encounter Summary ---
Author Organization [employer] Sys tem Address [facility] [id number] [address] [place] [address] Care Team Providers Care Pot Runner Name Role Phone No Pcp, No Pcp Primary Care Provider Unavailabl e Encounter Details Date Type Department Care Team (Late st Contact Info) Description 02/12/2023 Telephone [facility] [address] [facility] [address] [place] [address] Mickie Noble CMA Social History Tobacco Use [...] Telephone Encounter - Mickie Noble CMA - 02/12/2023 4:07 PM EDT ANDERSON Tapia (nurse watch case polisher) called stated Taran has Updated care plan and if you wanted to round you can February 20 3-4. If you have questions you can call her at [phone]. documented in this encounter Plan of Treatment Not on file documented as of this encounter Visit Diagnoses Not on filedocumented in this encounter Care Teams Pot Runner Relationship Specialty Start Date End Date No Pcp, [place] [address] PCP - General Family Medicine 07/11/22 documented as of this encounter
--- OUTSIDE RECORDS SUMMARY | 2025-05-16 06:34 | XMS_ITS | Encounter Summary ---
Author Organization [employer] tem Address [facility] [place] [id number] [address] [place] [address] Care Team Providers Care Java Programmer Analyst Name Role Phone No Pcp, No Pcp Primary Care Provider Unavailabl e Reason for Visit * Reason Comments Med Refill Encounter Details Date Type Department Care Team (Late st Contact Info) Description 06/12/2023 Refill [facility] [address] [phone] Lin Rivera MD [address] [address] Fibromyalgia Social History Tobacco Use Types Packs/Day [...] myositis documented in this encounter Care Teams Java Programmer Analyst Relationship Specialty Start Date End Date No Pcp, [place] [address] PCP - General Family Medicine 07/11/22 documented as of this encounter
--- OUTSIDE RECORDS SUMMARY | 2025-05-16 06:34 | XMS_ITS | Clinical Summary ---
Author Organization [facility] Address [address] [place] [place] [address] Care Team Providers Care Clinical Interviewer Name Role Phone Akil Fink MD Primary Care Provider [phone] Shaikh TAD Tamayo Unavailable [phone] Theodora Mitchell NP Unavailable [phone] Allergies Active Allergy Reactions Criticality Noted Date Comments Aspirin Swelling 12/18/2022 Codeine Other,Itching 11/10/2001 Cortisone Anxiety,Other,Dizziness Low 03/07/1999 Ibuprofen GI intolerance 11/10/2001 Other Nausea And Vomiting 03/12/2010 Sulfa Antibiotics Nausea And Vomiting 0 Medications ketoconazole (NIZOral) 2 % shampoo lather onto face and scalp, leave on 5 minutes then rinse topically 3-5 times weekly as needed for 30 day(s) 2 Active albuterol HFA 90 mcg/act inhaler Inhale 2 puffs every 6 (six) hours if needed for shortness of breath or wheezing 4 Active Ciclopirox 1 % shampooIndicati ons:Other seborrheic dermatitis LATHER ON WET HAIR LEAVE ON FOR 5 MINUTES THEN RINSE USE 2-3 TIMES A WEEK 120 mL 3 5 Active Fluticasone-Ume clidin-Vilant (Trelegy Ellipta) 100-62.5-25 MCG/ACT aerosol powderIndicatio ns:COPD mixed type (HCC) Inhale 1 puff Daily Rinse mouth after use 1 each 5 5 Active Active Problems Problem Noted Date Diagnosed Date Cigarette nicotine dependence without complicati on 12/02/2024 Assessment & Plan (12/02/2024 6:35 AM EDT): The patient has been advised of the risks of continued smoking: stroke, [place], all forms of cancer, lung disease, and . Options for quitting smoking include: cold turkey, hypnosis, acupuncture, nicotine replacement meds (gum, lozenges, and patches), Buproprion, and Varenicline. At this time pt is encouraged to evaluate their goals for wanting to quit smoking, and reach out to provider when ready to start this process Colon cancer screening declined 12/02/2024 Prostate cancer screening declined 12/02/2024 Assessment & Plan (12/02/2024 10:44 AM EDT): Has had elevation in the past, does not want checked again He does not want to do anything if he has cancer Solitary pulmonary nodule 03/30/2024 Chronic pain syndrome 03/30/2024 Assessment & Plan (06/22/2024 10:01 AM EST): Cold makes it worse, uses THC to help too Does not take muscle relaxers/NSAIDs no help No opioids used to take in the past, Declines going back to pain mgmt Assessment & Plan (03/30/2024 10:29 AM EDT): Offered pain mgmt, pt declines Offered deanne, elavil, duloxetine does not want to try these either Rosacea 01/21/2024 Assessment & Plan (01/21/2024 10:39 AM EDT): Trialed several creams in the past Uncertain if ever trialed metrondiazole gel will try this Obesity (BMI 30-39.9) 12/01/2023 Assessment & Plan (12/02/2024 6:34 AM EDT): Discussed with patient their BMI (actual, verses recommended). We have also discussed lifestyle modifications: attempts to perform physical activity as chronic conditions allow, also to monitor dietary intake: increasing protein/fruits/veggies and lowering carb intake (unless contraindicated). Limit sodas, juices, and sugary drinks. Assessment & Plan (06/22/2024 6:21 AM EST): Discussed with patient their BMI (actual, verses recommended). We have also discussed lifestyle modifications: attempts to perform physical activity as chronic conditions allow, also to monitor dietary intake: increasing protein/fruits/veggies and lowering carb intake (unless contraindicated). Limit sodas, juices, and sugary drinks. Encounter for subsequent [facility] visit (AWV) in Medicare patient 12/01/2023 Assessment & Plan (12/02/2024 6:35 AM EDT): Reviewed Ht/Wt/BMI Recommend eye exam yearly Recommend dental exams twice a year Balance work/leisure activities Exercises is recommended most days of the week (appropriate as chronic conditions allow) Follow up yearly and prn Assessment & Plan (12/01/2023 10:59 AM EDT): Reviewed Ht/Wt/BMI Recommend eye exam yearly Recommend dental exams twice a year Balance work/leisure activities Exercises is recommended most days of the week (appropriate as chronic conditions allow) Follow up yearly and prn 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 10/29/2023 Elevated PSA, between 10 and less than 20 ng/ml 10/13/2023 Assessment & Plan (12/02/2024 6:38 AM EDT): I did review his PSA levels including [...] this time 01/21/24 continues to decline urology Assessment & Plan (01/21/2024 10:34 AM EDT): I did review his PSA levels including [...] this time 01/21/24 continues to decline urology Assessment & Plan (12/01/2023 10:58 AM EDT): I did review his PSA levels including [...] to see a urologist at this time Assessment & Plan (10/29/2023 9:51 AM EDT): I did review his PSA levels including [...] to see a urologist at this time We will re visit at his next appt Mixed hyperlipidemia 09/25/2023 Assessment & Plan (12/02/2024 6:37 AM EDT): Is not taking meds, recommend low fat diet Check labs yearly Assessment & Plan (10/29/2023 9:52 AM EDT): Reviewed lipid values, advised with stroke hx, smoking, as well as elevated cholesterol levels he is at risk for stroke/N[place]/ He does not want to take a cholesterol pill at this time COPD with acute exacerbation 09/25/2023 Assessment & Plan (09/25/2023 11:28 AM EST): Atb No steroids d/t allergies Will also add albuterol NAD, no cxr at this time COPD mixed type 09/25/2023 Overview (12/09/2023): PFT's 12/08/23: FVC 83%, FEV1 36%, FEV1/FVC 32%: severe obstruction Assessment & Plan (12/02/2024 6:34 AM EDT): Trelegy continue with do through PAP Needs to quit smoking (has worked very hard at trying), cont with pulmonary Assessment & Plan (06/22/2024 10:06 AM EST): Trelegy continue with do through PAP Needs to quit smoking, cont with pulmonary Trelegy 200, Lot [id number], exp 08/29 #2 samples Assessment & Plan (05/24/2024 6:52 PM EDT): Samples of trelegy 200mg given, will do PA form for 100mg Lot: [id number], exp 08/29 Assessment & Plan (03/30/2024 10:15 AM EDT): Continue with pulmonary Urged to quit smoking Assessment & Plan (01/21/2024 10:40 AM EDT): Reviewed PFT's Cont trelegy, not sure if insurance is going to continue to pay Asked for a sample, gave him a trelegy 200/25, Lot [id number], exp 01/26 Great job on quitting smoking Recommend keeping UTD on flu, covid and pneumonia vaccines-refuses this Pulmonary 02/2024 and fu here in end of March 2024 Assessment & Plan (12/01/2023 11:20 AM EDT): Continue with trelegy #3 samples given: Lot [id number], exp 12/26 Assessment & Plan (10/29/2023 9:48 AM EDT): Continue with trelegy Fu in 4 weeks At that point will consider PFT and CXR Assessment & Plan (09/25/2023 11:29 AM EST): Will start Trelegy 100, #3 samples given: Lot [id number], exp 11/26 Instructed pt on what med was, how to take, rinse mouth after use Fu in 4 weeks Future will order cxr as well as PFT Tinnitus of left ear 09/25/2023 Sensorineural hearing loss, bilateral 09/25/2023 History of traumatic fracture of vertebra 2023 Neck pain 09/25/2023 Cerebrovascular accident (CVA) 09/25/2023 Assessment & Plan (12/01/2023 10:58 AM EDT): Declines to quit smoking, declines statin use Fibromyalgia 10/09/2022 PASCUAL positive 10/09/2022 Resolved Problems Problem Noted Date Diagnosed Date Resolved Date Colon cancer screening 12/02/202412/02 Assessment & Plan (12/02/2024 6:36 AM EDT): Colon cancer screening options were discussed with patient, as well as why colon cancer screening is indicated. Options are Colonoscopy: direct visualization, every 10 years (unless indicated more frequently), risks and benefits were discussed Cologuard: every 3 years, risks and benefits were discussed , contraindications were discussed (family hx of colon cancer, colon polyps) Patient has elected to: Chronic neck pain 03/30/2024 03/30/2024 BMI 29.0-29.9,adult 09/25/2023 06/22/20 24 Tobacco use 09/25/2023 12/02/2024 Assessment & Plan (06/22/2024 9:56 AM EST): Started on buproprion at last visit: did not tolerate, has done accupuncture The patient has been advised of the risks of continued smoking: stroke, [place], all forms of cancer, lung disease, and . Options for quitting smoking include: cold turkey, hypnosis, acupuncture, nicotine replacement meds (gum, lozenges, and patches), Buproprion, and Varenicline. At this time pt is encouraged to evaluate their goals for wanting to quit smoking, and reach out to provider when ready to start this process Assessment & Plan (05/24/2024 6:53 PM EDT): Will trial buproprion SR Advised of what it is, how it works, and how to take it If worsening in depression contact office Otherwise fu in 4 weeks Assessment & Plan (03/30/2024 10:27 AM EDT): Recommend quitting smoking Assessment & Plan (12/01/2023 10:57 AM EDT): The patient has been advised of the risks of continued smoking: stroke, [place], all forms of cancer, lung disease, and . Options for quitting smoking include: cold turkey, hypnosis, acupuncture, nicotine replacement meds (gum, lozenges, and patches), Buproprion, and Varenicline. At this time pt is encouraged to evaluate their goals for wanting to quit smoking, and reach out to provider when ready to start this process Assessment & Plan (10/29/2023 9:52 AM EDT): Since age 12yo, 1ppd, which make 50 pack years, discussed low dose CT scan for lung cancer screening, he declines this as well Encounters Date Type Department Care Team Description 03/24/2025 Patient Outreach [facility] [address] [place] [address] Mary Bian MA 02/18/20[facility] [address] [place] [address] Theodora Mitchell NP COPD mixed type (HCC) 02/17/2025 Patient Outreach [facility] [address] [place] [address] Mary Bain MA from Last 3 Months Immunizations Immunization Administration Dates Next Due Td (adult), unspecified 04/06/1999 Social History Tobacco Use Types Packs/Day Years Used Date Smoking Tobacco: Former Cigarettes Q uit: 12/16/2023 Passive Smoke Exposure: Never Smokeless Tobacco: Never Tobacco Cessation:Counseling Given: Not Answered Alcohol Use Standard Drinks/Week [...] week 09/24/2023 How often do you attend [facility] or christian services? Never 09/24/2023 Do you belong to any clubs o r organizations such as spiritism groups, unions, fraternal or athletic groups, or [...] Date Recorded Patient Health Questionnaire-2 Score 2 12/02/2024 [facility] Occup[facility] - Occupational Stress [...] place to sleep or slept in a nursing home (including now)? No 09/24/2023 Sex and Gender Information Value Date Recorded Sex Assigned at Not on file Legal Sex Male 6:52 PM EDT Gender Identity Not on file Sexual Orientation Not on file Last Filed Vital Signs Vital Sign Reading Time Taken Comments Blood Pressure 126/84 12/02/2024 10:06 AM EDT Pulse 70 12/02/2024 10:06 AM EDT Temperature 37.1 C (98.7 F) 12/02/2024 10:06 AM EDT Respiratory Rate 24 12/02/2024 10:06 AM EDT Oxygen Saturation 93% 12/02/2024 10:06 AM EDT Inhaled Oxygen Concentration - - Weight 106 kg (233 lb 3.2 oz) 12/02/2024 10:06 A M EDT Height 182.9 cm (6') 06/22/2024 9:29 AM EST Body Mass Index 31.63 06/22/2024 9:29 AM EST Plan of Treatment Health Maintenance Due Date Last Done Comments CT Colonography 1958 Colonoscopy 1958 FIT-DNA 1958 FIT 1958 FOBT 1960 Sigmoidoscopy 1960 Colorectal Cancer Screening 12/02/2025 Postponed from 1960 (Patient Refused) Medicare Annual Wellness (AWV) 12/02/2025 12/02/2024, 12/02/2024, 12/01/2023, Additional history exists Influenza Vaccine Discontinued Pneumococcal Vaccine: 65+ Years Discontinued Insurance [employer] MED[employer]ARE ADVANTAGE MEDICAID [place] Advance Directives Documents on File Type Date Recorded Patient Client Relationship Executive Expl anation Advance Directives and Living Will 06/22/2024 9:59 AM Living will Power of Finance Analyst 06/22/2024 9:57 AM sakshi r of commercial litigation attorney Care Teams Clinical Interviewer Relationship Specialty Start Date End Date Akil Fink MD PCP - General Family Medicine 09/25/23 Theodora Mitchell NP [address] [place] [address] PCP - Kendrick PACK 02/02/24 Shaikh Tamayo MD Referring Physician Internal Medicine 09/25/23
--- OUTSIDE RECORDS SUMMARY | 2025-05-16 06:34 | XMS_ITS | Encounter Summary ---
Author Organization [employer] Address [facility] [place] [facility] [id number] [address] [place] [address] Care Team Providers Care Study Abroad Coordinator Name Role Phone No Pcp, No Pcp Primary Care Provider Unavailabl e Encounter Details Date Type Department Care Team (Late st Contact Info) Description 07/14/2023 Telephone [facility] [address] [address] Antonio Perez CMA Social History Tobacco Use Types Packs/Day Years Used Date Smoking Tobacco: Every Day Cigarettes Passive Smoke Exposure: Current Smokeless Tobacco: Never Sex and Gender Information Value Date Recorded Sex Assigned at Not on file Legal Sex Male 9:10 AM EDT Gender Identity Not on file Sexual Orientation Not on file documented as of this encounter Miscellaneous Notes * Telephone Encounter - Antonio Perez CMA - 07/14/2023 10:23 AM EST Patient called and got sick about 10 days ago. Feeling short of breath but said he is over the sickness he had. Doesn't want to go back to the pills he was on which was Amitriptyline, pregabalin, andtizanidine. Was told to not quit the medications but did. States he is in a happy place without them. Patient is short of breath just walking from living room to kitchen. Currently not sleeping well. * Telephone Encounter - Kassidy Fournier CMA - 07/14/2023 10:23 AM EST More clarification needed please. * Telephone Encounter - Kassidy Fournier CMA - 07/14/2023 10:[address] Harding-- will you review for any immediate action if needed as the patient stopped medications prescribed by Miguel. * Telephone Encounter - Antonio Perez CMA - 07/14/2023 10:23 AM EST Lvm to call the office back * Telephone Encounter - Mickie Noble CMA - 07/14/2023 10:23 AM EST ..Called pt n/a. Lm to call back in office * Telephone Encounter - Antonio Perez CMA - 07/14/2023 10:23 AM EST Patient called back and stated he does not have a primary care doctor as he states no one will see him as being a chronic pain patient. He says the breathing is better now and over all better. Stateshe will not go back on the 3 medications again but states not sleeping is his main issue. documented in this encounter Plan of Treatment Not on file documented as of this encounter Visit Diagnoses Not on filedocumented in this encounter Care Teams Study Abroad Coordinator Relationship Specialty Start Date End Date No Pcp, [place] [address] PCP - General Family Medicine 07/11/22 documented as of this encounter
--- OUTSIDE RECORDS SUMMARY | 2025-05-16 06:34 | XMS_ITS | Clinical Summary ---
Author Organization [employer] tem Address [id number] [address] [place] [address] Care Team Providers Care Casing Running Machine Tender Name Role Phone No Pcp, No Pcp Primary Care Provider Unavailabl e Allergies Active Allergy Reactions Criticality Noted Date Comments Aspirin Swelling 12/18/2022 Codeine Itching 11/06/2022 Medications amitriptyline (ELAVIL) 75 mg tabletIndicatio ns:Fibromyalgia One capsule at 8 PM each night 90 tablet 1 3 Active Additional Information Patient not taking.Reported on 12/11/2023 pregabalin (LYRICA) 150 mg capsuleIndicati ons:Fibromyalgi a One capsule twice daily 180 capsule 1 3 Active Additional Information Patient not taking.Reported on 12/11/2023 tiZANidine (ZANAFLEX) 4 mg tabletIndicatio ns:Fibromyalgia One and half tab at 8:00 p.m.each night 135 tablet 1 3 Active Additional Information Patient not taking.Reported on 12/11/2023 PROAIR RESPICLICK 90 mcg/actuation aerosol powdr breath activated 2 puffs every 6 hours as needed for wheezing or shortness of breath 4 Active albuterol (PROVENTIL HFA;VENTOLIN HFA) 90 mcg/actuation inhaler 4 Active Active Problems Problem Noted Date Diagnosed Date Bilateral cold feet 10/09/2022 Smoking 10/09/2022 PASCUAL positive 10/09/2022 Fibromyalgia 10/09/2022 Social History Tobacco Use Types Packs/Day Years Used Date Smoking Tobacco: Every Day Cigarettes Passive Smoke Exposure: Current Smokeless Tobacco: Never Tobacco Cessation:Ready to Q uit: Not Asked; Counseling Given: Yes Sex and Gender Information Value Date Recorded Sex Assigned at Not on file Legal Sex Male 9:10 AM EDT Gender Identity Not on file Sexual Orientation Not on file Last Filed Vital Signs Vital Sign Reading Time Taken Comments Blood Pressure 136/68 12/11/2023 9:16 AM EDT Pulse 62 12/11/2023 9:16 AM EDT Temperature - - Respiratory Rate 16 12/11/2023 9:16 AM EDT Oxygen Saturation 97% 12/18/2022 9:33 AM EDT Inhaled Oxygen Concentration - - Weight 103.9 kg (229 lb) 12/11/2023 9:16 AM EDT Height - - Body Mass Index - - Plan of Treatment Health Maintenance Due Date Last Done Comments Depression Screening 1970 Adult BMI Screening 02/02/1976 DTaP,Tdap and Td Vaccines (1 - Tdap) 04/07/199910/1998 Zoster (Shingles) Vaccine (1 of 2) 02/02/2008 Abdominal Aortic Aneurysm (AAA) Screen 2023 Fall Risk Screening 2023 Tobacco Screening 12/10/2024 12/11/2023 Influenza Vaccine 04/04/2025 Medical Devices Not on file Insurance MEDICAID [place] [employer] MEDICARE Care Teams Casing Running Machine Tender Relationship Specialty Start Date End Date No Pcp, No Pcp R[place] [address] PCP - General Family Medicine 07/11/22
--- OUTSIDE RECORDS SUMMARY | 2025-05-16 06:34 | XMS_ITS | Encounter Summary ---
Author Organization [employer] Address [facility] [id number] [address] [place] [address] Care Team Providers Care Mine Analyst Name Role Phone No Pcp, No Pcp Primary Care Provider Unavailabl e Reason for Visit * Reason Comments Med Refill Encounter Details Date Type Department Care Team (Late st Contact Info) Description 01/07/2023 Refill [facility] [address] [address] Lin Rivera MD [address] [address] Fibromyalgia Social History Tobacco Use Types Packs/Day [...] myositis documented in this encounter Care Teams Mine Analyst Relationship Specialty Start Date End Date No Pcp, [place] [address] PCP - General Family Medicine 07/11/22 documented as of this encounter
--- OUTSIDE RECORDS SUMMARY | 2025-05-16 06:34 | XMS_ITS | Encounter Summary ---
Author Organization [employer] Address [facility] [place] [id number] [address] [place] [address] Care Team Providers Care Canteen Manager Name Role Phone No Pcp, No Pcp Primary Care Provider Unavailabl e Reason for Visit * Reason Onset Date Comments Med Refill 05/06/2023 Encounter Details Date Type Department Care Team (Late st Contact Info) Description 05/06/2023 Refill [facility] [address] [address] Mickie Noble, MAGDALENA Fibromyalgia Social History Tobacco Use Types Packs/Day [...] myositis documented in this encounter Care Teams Canteen Manager Relationship Specialty Start Date End Date No Pcp, [place] [address] PCP - General Family Medicine 07/11/22 documented as of this encounter
--- OUTSIDE RECORDS SUMMARY | 2025-05-16 06:34 | XMS_ITS | Encounter Summary ---
Author Organization [employer] Address [facility] [id number] [address] [place] [address] Care Team Providers Care Family Court Counsellor Name Role Phone No Pcp, No Pcp Primary Care Provider Unavailabl e Encounter Details Date Type Department Care Team (Late st Contact Info) Description 07/15/2023 Telephone [facility] [address] [phone] Mickie Noble CMA Social History Tobacco Use [...] on filedocumented in this encounter Care Teams Family Court Counsellor Relationship Specialty Start Date End Date No Pcp, [place] [address] PCP - General Family Medicine 07/11/22 documented as of this encounter
--- OUTSIDE RECORDS SUMMARY | 2025-05-16 06:34 | XMS_ITS | Encounter Summary ---
Author Organization [employer] Address [id number] [place] [address] Care Team Providers Care Benzene Washer Operator Name Role Phone No Pcp, No Pcp Primary Care Provider Unavailabl e Reason for Visit * Reason Comments Med Refill Encounter Details Date Type Department Care Team (Late st Contact Info) Description 05/18/2023 Refill [facility] [address] [phone] Lin Rivera MD [address] [address] Fibromyalgia Social History Tobacco Use Types Packs/Day [...] Telephone Encounter - Antonio Perez CMA - 05/18/2023 10:23 AM EDT Patient stating need refills on amitriptyline 25 mg. documented in this encounter Plan of Treatment Not on file documented as of this encounter Visit Diagnoses Diagnosis Fibromyalgia Unspecified myalgia and myositis documented in this encounter Care Teams Benzene Washer Operator Relationship Specialty Start Date End Date No Pcp, [place] [address] PCP - General Family Medicine 07/11/22 documented as of this encounter
[2025-05-16 06:52] LABS: Hematocrit 48.5 % (42.0-54.0); Hemoglobin 16.2 g/dL (14.0-18.0); Immature Granulocytes Abs Auto 0.03 10^3/uL (0.00-0.03); Immature Granulocytes Pct Auto 0.3 % (0.0-0.5); Lymphocytes Absolute Auto 2.3 10^3/uL (1.2-3.8); Mean Corpuscular HGB Conc 33.4 g/dL (29.9-35.2); Mean Corpuscular Hemoglobin 31.2 pg (25.9-34.0); Mean Corpuscular Volume 93.3 fL (80.0-94.0); Platelet Count 331 10^3/uL (150-450); Red Blood Count 5.20 10^6/uL (4.70-6.10); White Blood Count 9.9 10^3/uL (4.0-11.0)
[2025-05-16 06:53] LABS: Glucose Urine UA NEGATIVE (NEGATIVE)
[2025-05-16 09:21] LABS: Alanine Aminotransferase 15 U/L (16-63); Albumin Globulin Ratio 0.8; Albumin Level 3.8 g/dL (3.4-5.0); Alkaline Phosphatase 73 U/L (46-116); Anion Gap 11.1; Aspartate Amino Transferase 13 U/L (15-37); Blood Urea Nitrogen 10.0 mg/dL (7.0-18.0); Calcium 9.2 mg/dL (8.5-10.1); Carbon Dioxide 31.2 mmol/L (21.0-32.0); Chloride 104 mmol/L (98-107); Cholesterol 238 mg/dL (<=200); Estimated GFR (African America >60 (>=60 mL/min/1.73m^2); Estimated GFR (Non-African Ame >60 (>=60 mL/min/1.73m^2); Globulin 4.6 g/dL; Glucose 94 mg/dL (74-106); HDL Cholesterol 46 mg/dL (40-60); Potassium 4.3 mmol/L (3.5-5.1); Sodium 142 mmol/L (136-145); Total Protein 8.4 g/dL (6.4-8.2); Triglycerides 88 mg/dL (<=150); VLDL CHOLESTEROL 17.6 mg/dL
== END 2025-05-16 06:29 | disposition home or self-care (01) ==
LOC: LAB 06:31
PROVIDERS: PCP Nurse Practitioner; Visit Provider Nurse Practitioner
DX: J44.9 Chronic obstructive pulmonary disease, unspecified (principal); F17.210 Nicotine dependence, cigarettes, uncomplicated; E66.9 Obesity, unspecified; E78.2 Mixed hyperlipidemia
CPT/HCPCS: 36415; 80053; 80061; 81003; 85025